=== PATIENT | female | born 1955 | race Caucasian/White ===

== ENCOUNTER 2020-02-26 19:22 | Inpatient (IN) | payer MEDICARE ==
[2020-02-26] MEDS ORDERED: SODIUM CHLORIDE 0.9% 1,000 ML IV STA (20:16)
--- NOTE | 2020-02-26 20:16 | ED ---
Recheck HPI - General Chief Complaint: Recheck/Abnormal Lab/Rx Stated Complaint: Chest Pains Time Seen by Provider: 02/26/20 19:50 Source: patient, RN notes reviewed, old records reviewed Mode of arrival: ambulatory Limitations: no limitations - History of Present Illness Initial Comments: This is a 64-year-old female DF for evaluation patient with us today for evaluation severely elevated blood pressure patient has been seen after surgery as well as multiple other doctors for evaluation of possible blood pressure control differences in blood pressure between both upper extremities as well as abnormal outpatient ultrasound. Patient has no chest pain headache or shortness breath currently MD Complaint: abnormal lab (abnormal BP) -: week(s) Returns Today for: persistent/worsening pain related to initial visit Symptoms Since Prior Visit: no new symptoms Associated Symptoms: none Treatments Prior to Arrival: other - Related Data Home Medications Medication Instructions Recorded Confirmed Aspirin EC [Ecotrin Low Dose] 81 mg PO DAILY 02/26/20 02/26/20 Atenolol [Tenormin] 50 mg PO BID 02/26/20 02/26/20 Enalapril Maleate [Vasotec] 15 mg PO BID 02/26/20 02/26/20 Rosuvastatin Calcium 10 mg PO HS@199902/26/20 02/26/20 Venlafaxine HCl [Effexor] 50 mg PO BID 02/26/20 02/26/20 Allergies Allergy/AdvReac Type Severity Reaction Status Date / Time losartan [From Cozaar] Allergy Itching Verified 02/26/20 19:34 Penicillins Allergy Swelling Verified 02/26/20 19:34 Review of Systems ROS Statement: Those systems with pertinent positive or pertinent negative responses have been documented in the HPI. ROS Other: All systems not noted in ROS Statement are negative. Past Medical History Past Medical History: Hypertension History of Any Multi-Drug Resistant Organisms: None Reported Past Surgical History: Tonsillectomy Additional Past Surgical History / Comment(s): abdominal laparotomy, fibroid tumor from uterus, fibroid from L breast Past Psychological History: Anxiety Smoking Status: Current every day smoker Past Alcohol Use History: Occasional Past Drug Use History: None Reported General Exam Limitations: no limitations General appearance: alert, in no apparent distress Head exam: Present: atraumatic, normocephalic, normal inspection Eye exam: Present: normal appearance, PERRL, EOMI. Absent: scleral icterus, conjunctival injection, periorbital swelling ENT exam: Present: normal exam, mucous membranes moist Neck exam: Present: normal inspection. Absent: tenderness, meningismus, lymphadenopathy Respiratory exam: Present: normal lung sounds bilaterally. Absent: respiratory distress, wheezes, rales, rhonchi, stridor Cardiovascular Exam: Present: regular rate, normal rhythm, normal heart sounds. Absent: systolic murmur, diastolic murmur, rubs, gallop, clicks GI/Abdominal exam: Present: soft, normal bowel sounds. Absent: distended, tenderness, guarding, rebound, rigid Extremities exam: Present: normal inspection, full ROM, normal capillary refill. Absent: tenderness, pedal edema, joint swelling, calf tenderness Back exam: Present: normal inspection Neurological exam: Present: alert, oriented X3, CN II-XII intact Psychiatric exam: Present: normal affect, normal mood Skin exam: Present: warm, dry, intact, normal color. Absent: rash Course Vital Signs 02/26/20 02/26/20 02/26/20 19:27 19:59 21:15 Temperature 97.8 F Pulse Rate 66 57 L Respiratory 16 18 Rate Blood Pressure 260/107 237/86 Blood Pressure [Left Arm] Blood Pressure [Right Arm] O2 Sat by Pulse 99 98 Oximetry 02/26/20 02/26/20 02/27/20 22:53 23:49 00:20 Temperature 97.8 F Pulse Rate 64 Respiratory 18 Rate Blood Pressure 225/82 222/83 Blood Pressure [Left Arm] Blood Pressure 130/78 [Right Arm] O2 Sat by Pulse 98 Oximetry 02/27/20 02/27/20 02/27/20 00:30 00:45 00:58 Temperature Pulse Rate Respiratory 14 Rate Blood Pressure Blood Pressure 200/78 210/75 196/77 [Left Arm] Blood Pressure 137/75 122/70 [Right Arm] O2 Sat by Pulse 99 Oximetry 02/27/20 01:25 Temperature 97.7 F Pulse Rate 53 L Respiratory 16 Rate Blood Pressure Blood Pressure [Left Arm] Blood Pressure [Right Arm] O2 Sat by Pulse Oximetry - Reevaluation(s) Reevaluation #1: Medical records reviewed Patient discussed at length, results, questions answered Spoke with vascular surgery on-call will see patient in consult admitted for blood pressure control Medical Decision Making - Medical Decision Making 64 female DF for severe elevated blood pressure also recent abnormalities found in different imaging will be modalities. Patient be admitted for strict blood pressure control - Lab Data Result diagrams: 02/28/20 05:16 02/28/20 05:16 Lab Results 02/26/20 02/26/20 02/26/20 Range/Units 20:47 20:47 20:47 WBC 9.7 (3.8-10.6) k/uL RBC 4.63 (3.80-5.40) m/uL Hgb 14.1 (11.4-16.0) gm/dL Hct 43.3 (34.0-46.0) % MCV 93.4 D (80.0-100.0) fL MCH 30.4 (25.0-35.0) pg MCHC 32.6 (31.0-37.0) g/dL RDW 12.6 (11.5-15.5) % Plt Count (150-450) k/uL Neutrophils % 55 % Lymphocytes % 35 % Monocytes % 6 % Eosinophils % 2 % Basophils % 1 % Neutrophils # 5.3 (1.3-7.7) k/uL Lymphocytes # 3.4 (1.0-4.8) k/uL Monocytes # 0.5 (0-1.0) k/uL Eosinophils # 0.2 (0-0.7) k/uL Basophils # 0.1 (0-0.2) k/uL PT 9.4 (9.0-12.0) sec INR 0.9 (<1.2) APTT 20.4 L (22.0-30.0) sec Sodium 134 L (137-145) mmol/L Potassium 4.4 (3.5-5.1) mmol/L Chloride 103 (98-107) mmol/L Carbon Dioxide 22 (22-30) mmol/L Anion Gap 9 mmol/L BUN 18 H (7-17) mg/dL Creatinine 0.66 (0.52-1.04) mg/dL Est GFR (CKD-EPI)AfAm >90 (>60 ml/min/1.73 sqM) Est GFR (CKD-EPI)NonAf >90 (>60 ml/min/1.73 sqM) Glucose 97 (74-99) mg/dL Calcium 9.4 (8.4-10.2) mg/dL Phosphorus 4.3 (2.5-4.5) mg/dL Magnesium 2.1 (1.6-2.3) mg/dL Total Bilirubin 0.5 (0.2-1.3) mg/dL AST 26 (14-36) U/L ALT 14 (4-34) U/L Alkaline Phosphatase 69 (38-126) U/L Troponin I (0.000-0.034) ng/mL NT-Pro-B Natriuret Pep pg/mL Total Protein 6.7 (6.3-8.2) g/dL Albumin 4.2 (3.5-5.0) g/dL Urine Color Urine Appearance (Clear) Urine pH (5.0-8.0) Ur Specific [place] (1.001-1.035) Urine Protein (Negative) Urine Glucose (UA) (Negative) Urine Ketones (Negative) Urine Blood (Negative) Urine Nitrite (Negative) Urine Bilirubin (Negative) Urine Urobilinogen (<2.0) mg/dL Ur Leukocyte Esterase (Negative) 02/26/20 02/26/20 02/26/20 Range/Units 20:47 20:47 21:47 WBC (3.8-10.6) k/uL RBC (3.80-5.40) m/uL Hgb (11.4-16.0) gm/dL Hct (34.0-46.0) % MCV (80.0-100.0) fL MCH (25.0-35.0) pg MCHC (31.0-37.0) g/dL RDW (11.5-15.5) % Plt Count (150-450) k/uL Neutrophils % % Lymphocytes % % Monocytes % % Eosinophils % % Basophils % % Neutrophils # (1.3-7.7) k/uL Lymphocytes # (1.0-4.8) k/uL Monocytes # (0-1.0) k/uL Eosinophils # (0-0.7) k/uL Basophils # (0-0.2) k/uL PT (9.0-12.0) sec INR (<1.2) APTT (22.0-30.0) sec Sodium (137-145) mmol/L Potassium (3.5-5.1) mmol/L Chloride (98-107) mmol/L Carbon Dioxide (22-30) mmol/L Anion Gap mmol/L BUN (7-17) mg/dL Creatinine (0.52-1.04) mg/dL Est GFR (CKD-EPI)AfAm (>60 ml/min/1.73 sqM) Est GFR (CKD-EPI)NonAf (>60 ml/min/1.73 sqM) Glucose (74-99) mg/dL Calcium (8.4-10.2) mg/dL Phosphorus (2.5-4.5) mg/dL Magnesium (1.6-2.3) mg/dL Total Bilirubin (0.2-1.3) mg/dL AST (14-36) U/L ALT (4-34) U/L Alkaline Phosphatase (38-126) U/L Troponin I 0.019 (0.000-0.034) ng/mL NT-Pro-B Natriuret Pep 1210 pg/mL Total Protein (6.3-8.2) g/dL Albumin (3.5-5.0) g/dL Urine Color Colorless Urine Appearance Clear (Clear) Urine pH 6.0 (5.0-8.0) Ur Specific [place] 1.004 (1.001-1.035) Urine Protein Negative (Negative) Urine Glucose (UA) Negative (Negative) Urine Ketones Negative (Negative) Urine Blood Negative (Negative) Urine Nitrite Negative (Negative) Urine Bilirubin Negative (Negative) Urine Urobilinogen <2.0 (<2.0) mg/dL Ur Leukocyte Esterase Negative (Negative) - EKG Data -: EKG Interpreted by Me (EKG shows sinus rhythm of 63 MN 142 QRS 92 QTC 4:30) - Radiology Data Radiology results: report reviewed (CTA of chest had neck show some stenosis of carotid arteries stenosis in the umbilical abdominal aorta), image reviewed Critical Care Time Critical Care Time: Yes Total Critical Care Time: 31 Disposition Clinical Impression: Hypertensive emergency, Hypertension Disposition: ADMITTED IP TO THIS HOSP Condition: Fair Is patient prescribed a controlled substance at d/c from ED?: No
[2020-02-26 21:18] LABS: ALT 14 U/L (4-34); AST 26 U/L (14-36); African American GFR (CKD) >90 (>60 ml/min/1.73 sqM); Albumin 4.2 g/dL (3.5-5.0); Alkaline Phosphatase 69 U/L (38-126); Anion Gap 9 mmol/L; Blood Urea Nitrogen 18 mg/dL (7-17); Calcium 9.4 mg/dL (8.4-10.2); Carbon Dioxide 22 mmol/L (22-30); Chloride 103 mmol/L (98-107); Glucose 97 mg/dL (74-99); Magnesium 2.1 mg/dL (1.6-2.3); Non-African American GFR(CKD) >90 (>60 ml/min/1.73 sqM); Phosphorus 4.3 mg/dL (2.5-4.5); Potassium 4.4 mmol/L (3.5-5.1); Sodium 134 mmol/L (137-145); Total Bilirubin 0.5 mg/dL (0.2-1.3); Total Protein 6.7 g/dL (6.3-8.2)
[2020-02-26 21:31] LABS: HCT 43.3 % (34.0-46.0); HGB 14.1 gm/dL (11.4-16.0); Lymphocytes % (A) 35 %; MCH 30.4 pg (25.0-35.0); MCHC 32.6 g/dL (31.0-37.0); Neutrophils % (A) 55 %; RBC 4.63 m/uL (3.80-5.40); RDW 12.6 % (11.5-15.5); WBC 9.7 k/uL (3.8-10.6)
[2020-02-26 21:32] LABS: Basophils # (A) 0.1 k/uL (0-0.2); Basophils % (A) 1 %; Eosinophils # (A) 0.2 k/uL (0-0.7); Eosinophils % (A) 2 %; Lymphocytes # (A) 3.4 k/uL (1.0-4.8); Monocytes # (A) 0.5 k/uL (0-1.0); Monocytes % (A) 6 %; Neutrophils # (A) 5.3 k/uL (1.3-7.7)
[2020-02-26 21:34] LABS: MCV 93.4 fL (80.0-100.0)
[2020-02-26 22:01] LABS: INR 0.9 (<1.2); Partial Thromboplastin Time 20.4 sec (22.0-30.0); Prothrombin Time 9.4 sec (9.0-12.0)
[2020-02-26 22:06] LABS: Appearance,Urine Clear (Clear); Bilirubin,Urine Negative (Negative); Blood,Urine Negative (Negative); Color,Urine Colorless; Glucose,Urine (UA) Negative (Negative); Ketones,Urine Negative (Negative); Leukocyte Esterase,Urine Negative (Negative); Nitrite,Urine Negative (Negative); Protein,Urine Negative (Negative); Specific Gravity,Urine 1.004 (1.001-1.035); Urobilinogen,Urine <2.0 mg/dL (<2.0)
--- NOTE | 2020-02-26 22:39 | CT ---
EXAMINATION TYPE: CT angio chest DATE OF EXAM: 02/26/2020 COMPARISON: None HISTORY: Hypertension CT DLP: 496.8 mGycm Automated exposure control for dose reduction was used. CONTRAST: Performed with IV Contrast, patient injected with 100 mL of Isovue 370. There are 3-D post processed images. There is some diffuse pulmonary emphysema in the mid and upper lung alvarado. There is no pulmonary con solidation. There is no suspicious pulmonary mass. Heart size is fairly normal. There is no pericardi al effusion. There is no pleural effusion. There is thrombus in the abdominal aorta with luminal narr owing. Thoracic aorta is atheromatous. There is no thoracic aortic aneurysm. There are no filling defects in the pulmonary arteries. There are no hilar masses. There is no mediastinal adenopathy. There is some spurring in the thoracic spine. I see no bony destructive process. The ribs appear intact. IMPRESSION: No evidence of pulmonary embolism. Pulmonary emphysema. There is some thrombus in the abdominal aorta and luminal narrowing and probably some degree of abdom inal aortic stenosis.
--- NOTE | 2020-02-26 22:53 | CT ---
EXAMINATION TYPE: CT angio head neck DATE OF EXAM: 02/26/2020 COMPARISON: None HISTORY: Hypertension CT DLP: 1447.8 mGycm Automated exposure control for dose reduction was used. CONTRAST: Performed with IV Contrast, patient injected with 100 mL of Isovue 370. Images were obtained from the aortic arch to the vertex of the brain with IV contrast. There are 3-D post processed images. Thoracic aorta is atheromatous. There is normal branching pattern of the great vessels on the aortic arch. There is bilateral arterial flow in the subclavian arteries. There is ar terial flow in the common internal and external carotid arteries bilaterally. There is arterial flow in both vertebral arteries which are fairly symmetric. There is plaque formation at the carotid artery bifurcations and estimated 80% stenosis of the origi n of the left internal carotid artery. There is estimated less than 15% stenosis origin of the right internal carotid artery. There is bilateral arterial flow in the external carotid arteries. I see no evidence of carotid or vertebral artery aneurysm or dissection. There is arterial flow in the vertebr obasilar artery system. There is arterial flow in both anterior cerebral arteries. There is arterial flow in the middle and posterior cerebral arteries. There is diminutive proximal left anterior cerebr al artery. There is diminutive proximal right middle cerebral artery. There is normal contrast opacification of the venous sinuses. There is no mass effect. There is no sign of intracranial aneurysm or neovascularity. IMPRESSION: There is approximate 80% stenosis of the proximal left internal carotid artery. There is approximate 15% stenosis proximal right internal carotid artery. Small proximal left anterior cerebral artery and proximal right middle cerebral artery could Relate t o atherosclerotic narrowing.
[2020-02-26] MEDS: CLEVIDIPINE BUTYRATE 25 MG in EMPTY BAG 1 BAG IV SCH (23:19)
--- NOTE | 2020-02-26 23:30 | CT ---
EXAMINATION TYPE: CT brain wo con DATE OF EXAM: 02/26/2020 COMPARISON: None HISTORY: Hypertension CT DLP: 1085 mGycm Automated exposure control for dose reduction was used. Ventricles have normal size. There is no mass effect nor midline shift. There is no sign of intracran ial hemorrhage. Calvarium is intact. There is no evidence of cerebral edema. Sella turcica is normal. Temporal bones appear normal. IMPRESSION: Negative unenhanced head CT scan.
[2020-02-27 01:43] LABS: Glucose,Whole Blood 101 mg/dL (75-99)
[2020-02-27 03:55] LABS: Cholesterol 182 mg/dL (<200); HDL Cholesterol 45 mg/dL (40-60); LDL Cholesterol,Calculated 106 mg/dL (0-99); Triglycerides 153 mg/dL (<150)
[2020-02-27] MEDS ORDERED: atenoloL 50 MG TAB PO SCH (09:00)
[2020-02-27] MEDS: ASPIRIN 81 MG PO SCH (09:55)
[2020-02-27] MEDS: atenoloL 25 MG TAB PO SCH ×2 (09:55→20:42)
[2020-02-27] MEDS: hydroCHLOROthiazide 25 MG TAB PO SCH (09:56)
[2020-02-27] MEDS: lisinopriL 20 MG TAB PO SCH ×2 (09:56→20:43)
[2020-02-27] MEDS: VENLAFAXINE HCL 50 MG TAB PO SCH ×2 (09:56→20:43)
[2020-02-27] MEDS: ATORVASTATIN 80 MG TAB PO SCH (09:56)
--- NOTE | 2020-02-27 11:05 | CONS ---
CONSULTATION Mrs. Bustamante is a 64-year-old female with known history of hypertension, hyperlipidemia, history of smoking as well as a known history of vascular disease, who presented with elevated blood pressure. Recently, she was noted to have discrepancy in the blood pressure between the left arm and the right arm and her medical regimen was adjusted, but she continued to have worsening blood pressure and had some chest discomfort, pressure-like. In view of that, came into the emergency room and subsequently admitted. Her blood pressure on the left arm was above 200. The patient is usually active physically, gardening on regular basis, has no dyspnea on exertion. No chest discomfort. She denies any recent palpitation, although she has occasional palpitation at time. Occasional dizziness but no syncope. She has no PND, orthopnea, or peripheral edema. She has been followed by Dr. Short regarding asymptomatic carotid obstructive disease. The patient coronary risk factors are remarkable for hypertension, hyperlipidemia and smoking. MEDICATION: At home include aspirin once a day, rosuvastatin 10 mg daily, enalapril 15 mg twice a day, Tenormin 15 mg twice a day, and Effexor. REVIEW OF SYSTEMS: RESPIRATORY SYSTEM: She has no recent wheezing. No cough. No obstructive lung disease. GI SYSTEM: No recent GI bleeding. No peptic ulcer disease. SYSTEM: No dysuria or hematuria. NERVOUS SYSTEM: No stroke or seizure. PHYSICAL EXAMINATION: She is a 64-year-old female, alert, oriented, in no apparent distress. Blood pressure on the left arm running in the 170s, on the right in the 120s to 130s. Heart rate in the 50s. HEAD: Normocephalic. EYES: Sclerae nonicteric. NECK: Good upstroke with with bilateral bruit. Right left subclavian bruit noted. LUNGS: Clear to auscultation. HEART: Regular rate and rhythm, S1, S2. No S3 with systolic ejection murmur heard at the base, ejection type 2/6, no diastolic murmur, no rub. ABDOMEN: Soft, nontender, positive bowel sounds, no organomegaly. EXTREMITIES: No edema, intact distal pulses. Pulse on the left radial appears to be stronger. LAB DATA: Cholesterol 182, LDL 106. Troponin 0.019, less than 0.012. BUN and creatinine 18 and 0.66. Hemoglobin of 14.1. EKG revealed sinus mechanism, normal axis and intervals, left ventricular hypertrophy. Brain CT unremarkable. CT angiogram of the brain revealed an 80% stenosis of the left internal carotid artery and 15% stenosis of the right internal carotid artery. No mention of the subclavian was noted. Chest CT revealed no evidence of dissection or embolism, but there is thrombus in the abdominal aorta and luminal narrowing. IMPRESSION: 1. Hypertension with differential blood pressure between the left and right arm suggestive of subclavian stenosis with no clear symptoms. 2. History of carotid disease, asymptomatic. 3. Hypertension by history. 4. Hyperlipidemia. 5. Chronic tobacco use. 6. Atherosclerotic changes. RECOMMENDATION: Patient appears to be vasculopathic with diffuse obstructive disease. At this time, I will repeat her echocardiogram with Doppler. I will add hydrochlorothiazide to her regimen. I will decrease the dose of her beta mildred. Will obtain an ultrasound of her subclavian. Will maximize her blood pressure control. The patient would require a myocardial perfusion imaging to rule out any obstructive coronary disease, although her symptoms of chest discomfort at this time do not reflect an acute coronary artery syndrome. Depending on her progress, further recommendation will be made. I have discussed with her the importance of smoking cessation. Thank you for this consult. Will follow with you. MMODL / IJN: [id number] /
[2020-02-27] MEDS: CLEVIDIPINE BUTYRATE 25 MG in EMPTY BAG 1 BAG IV SCH ×5 (11:19→23:03)
[2020-02-27] MEDS: SODIUM CHLORIDE 0.9% 1,000 ML IV SCH ×3 (11:32→17:16)
--- NOTE | 2020-02-27 12:01 | ECHOF ---
Referral Reason:htn MEASUREMENTS -------- HEIGHT: 162.6 cm WEIGHT: 61.2 kg BP: IVSd: 1.2 cm (0.6 - 1.1) LVIDd: 4.4 cm (3.9 - 5.3) LVPWd: 1.0 cm (0.6 - 1.1) EDV(Teich): 87 ml IVSs: 1.5 cm LVIDs: 2.6 cm LVPWs: 1.6 cm %IVS Thck: 22 % ESV(Teich): 25 ml EF(Teich): 71 % %FS: 40 % SV(Teich): 62 ml LA Diam: 3.6 cm (2.7 - 3.8) LALs A4C: 4.7 cm LAAs A4C: 14.0 cm LAESV A-L A4C: 36 ml LAESV MOD A4C: 34 ml LALs A2C: 4.7 cm LAAs A2C: 16.0 cm LAESV A-L A2C: 46 ml LAESV MOD A2C: 43 ml LAESV(A-L): 41 ml LAESV Index (A-L): 24.57 ml/m Ao Diam: 2.5 cm (2.0 - 3.7) AV Cusp: 1.4 cm (1.5 - 2.6) MV EXCURSION: 13.254 mm (> 18.000) MV EF SLOPE: 61 mm/s (70 - 150) EPSS: 0.3 cm MV E [place]: 0.70 m/s MV DecT: 347 ms MV Dec [place]: 2.0 m/s MV A [place]: 0.94 m/s MV E/A Ratio: 0.75 MV PHT: 100 ms TR Vmax: 1.83 m/s TR maxP.40 mmHg RAP: 5.00 mmHg RVSP: 18.40 mmHg FINDINGS -------- This was a technically good study. The left ventricular size is normal. There is mild concentric left ventricular hypertrophy. Overa ll left ventricular systolic function is normal with, an EF between 55 - 60 %. The right ventricle is normal in size. The left atrial size is normal. Normal LA size by volume 22+/-6 ml/m2. The right atrial size is normal. The aortic valve is trileaflet, and appears structurally normal. No aortic stenosis or regurgitation. Mild mitral regurgitation is present. Mild tricuspid regurgitation present. Right ventricular systolic pressure is normal at < 35 mmHg. Trace/mild (physiologic) pulmonic regurgitation. The aortic root size is normal. There is no pericardial effusion. CONCLUSIONS -------- 1. The left ventricular size is normal. 2. There is mild concentric left ventricular hypertrophy. 3. Overall left ventricular systolic function is normal with, an EF between 55 - 60 %. 4. The right ventricle is normal in size. 5. The left atrial size is normal. 6. Normal LA size by volume 22+/-6 ml/m2. 7. The right atrial size is normal. 8. Mild mitral regurgitation is present. 9. Mild tricuspid regurgitation present. 10. Trace/mild (physiologic) pulmonic regurgitation. FAMILY DAY CARER: Roseline Perez RDCS
--- NOTE | 2020-02-27 13:33 | P.GSCN ---
History of Present Illness Consult date: 02/27/20 Reason for Consult: Carotid stenosis, right subclavian stenosis History of present illness: This is a pleasant 64-year-old female who is known to Dr. Short, who actually was seen in the office this past Sunday a reevaluation of carotid stenosis and asymptomatic right subclavian stenosis. The patient was known to have elevated blood pressure at the time of the appointment. She had followed up with her PCP Jaida Barth who had done some medication adjustments. The patient was doing home blood pressure checks and noticed her blood pressure has still been elevated in the 200s over 100s. The patient tried to sleep however felt that she had pounding in her head and chest, he came into the emergency department yesterday evening and presented with blood pressures in the 200s/100s-80s. The patient was admitted into the ICU for hypertensive crisis and blood pressure management. Her past medical history includes hypertension and current every day smoker. He CT angiogram of the head and neck showed approximately 80% stenosis of the proximal left internal carotid artery. There is approximate 50% stenosis of proximal right internal carotid artery. The CT angiogram of the chest shows no evidence of pulmonary embolism. There is p ulmonary emphysema. There is some thrombus in the abdominal aorta and luminal narrowing and probably some degree of abdominal aortic stenosis. A CT of the brain without contrast was completed and was negative. The patient also underwent an echocardiogram which showed mild concentric left ventricular hypertrophy, EF between 55 and 60%, and mild mitral regurgitation. The patient denies any pain to the right upper extremity or shoulder, as well as any loss of mobility to the right upper extremity. She denies any shortness breath or chest pain at this time. She denies any focal deficits. Review of Systems A 14 point review of systems was completed and all pertinent positives and negatives as stated in the HPI. Past Medical History Past Medical History: Hypertension History of Any Multi-Drug Resistant Organisms: None Reported Past Surgical History: Tonsillectomy Additional Past Surgical History / Comment(s): abdominal laparotomy, fibroid tu mor from uterus, fibroid from L breast Past Anesthesia/Blood Transfusion Reactions: Postoperative Nausea & Vomiting (PONV) Past Psychological History: Anxiety Smoking Status: Former smoker Past Alcohol Use History: Occasional Past Drug Use History: None Reported Medications and Allergies Home Medications Medication Instructions Recorded Confirmed Type Aspirin EC [Ecotrin Low Dose] 81 mg PO DAILY 02/26/20 02/26/20 History Atenolol [Tenormin] 50 mg PO BID 02/26/20 02/26/20 History Enalapril Maleate [Vasotec] 15 mg PO BID 02/26/20 02/26/20 History Rosuvastatin Calcium 10 mg PO HS@2000 02/26/20 02/26/20 History Venlafaxine HCl [Effexor] 50 mg PO BID 02/26/20 02/26/20 History Allergies Allergy/AdvReac Type Severity Reaction Status Date / Time losartan [From Cozaar] Allergy Itching Verified 02/26/20 19:34 Penicillins Allergy Swelling Verified 02/26/20 19:34 Surgical - Exam Vital Signs Temp Pulse Resp Pulse Ox 97.8 F 66 16 99 02/26/20 19:27 02/26/20 19:27 02/26/20 19:27 02/26/20 19:27 General appearance: The patient is alert, oriented, in no acute distress. HET: Head is normocephalic and atraumatic. Neck: Supple without lymphadenopathy. Trachea midline. No audible bruit on the right side neck, left carotid audible bruit. Heart: S1 S2. Regular rate and rhythm. Lungs: No crackles or wheezes are heard. Abdomen: Soft, nontender, nondistended with bowel sounds. Extremities: Normal skin color and turgor. No cyanosis, rash, ulceration, clubbing, or edema. Radial pulses 2+ B/L. Full range of motion of bilateral upper extremities without any pain. Neurological: No focal deficits. Strength and sensation are grossly intact. Results CT angiogram of head and neck reviewed per Dr. Short CT angiogram of chest reviewed per Dr. Short CT brain without contrast reviewed Echocardiogram reviewed and dictated in HPI - Labs 02/26/20 20:47 02/26/20 20:47 Abnormal Lab Results - Last 24 Hours (Table) 02/26/20 02/26/20 02/27/20 Range/Units 20:47 20:47 01:42 APTT 20.4 L (22.0-30.0) sec Sodium 134 L (137-145) mmol/L BUN 18 H (7-17) mg/dL POC Glucose (mg/dL) 101 H (75-99) mg/dL Triglycerides (<150) mg/dL LDL Cholesterol, Calc (0-99) mg/dL 02/27/20 Range/Units 02:47 APTT (22.0-30.0) sec Sodium (137-145) mmol/L BUN (7-17) mg/dL POC Glucose (mg/dL) (75-99) mg/dL Triglycerides 153 H (<150) mg/dL LDL Cholesterol, Calc 106 H (0-99) mg/dL Diabetes panel 02/26/20 02/27/20 Range/Units 20:47 02:47 Sodium 134 L (137-145) mmol/L Potassium 4.4 (3.5-5.1) mmol/L Chloride 103 (98-107) mmol/L Carbon Dioxide 22 (22-30) mmol/L BUN 18 H (7-17) mg/dL Creatinine 0.66 (0.52-1.04) mg/dL Glucose 97 (74-99) mg/dL Calcium 9.4 (8.4-10.2) mg/dL AST 26 (14-36) U/L ALT 14 (4-34) U/L Alkaline Phosphatase 69 (38-126) U/L Total Protein 6.7 (6.3-8.2) g/dL Albumin 4.2 (3.5-5.0) g/dL Triglycerides 153 H (<150) mg/dL HDL Cholesterol 45 (40-60) mg/dL Calcium panel 02/26/20 Range/Units 20:47 Calcium 9.4 (8.4-10.2) mg/dL Phosphorus 4.3 (2.5-4.5) mg/dL Albumin 4.2 (3.5-5.0) g/dL Pituitary panel 02/26/20 Range/Units 20:47 Sodium 134 L (137-145) mmol/L Potassium 4.4 (3.5-5.1) mmol/L Chloride 103 (98-107) mmol/L Carbon Dioxide 22 (22-30) mmol/L BUN 18 H (7-17) mg/dL Creatinine 0.66 (0.52-1.04) mg/dL Glucose 97 (74-99) mg/dL Calcium 9.4 (8.4-10.2) mg/dL Adrenal panel 02/26/20 Range/Units 20:47 Sodium 134 L (137-145) mmol/L Potassium 4.4 (3.5-5.1) mmol/L Chloride 103 (98-107) mmol/L Carbon Dioxide 22 (22-30) mmol/L BUN 18 H (7-17) mg/dL Creatinine 0.66 (0.52-1.04) mg/dL Glucose 97 (74-99) mg/dL Calcium 9.4 (8.4-10.2) mg/dL Total Bilirubin 0.5 (0.2-1.3) mg/dL AST 26 (14-36) U/L ALT 14 (4-34) U/L Alkaline Phosphatase 69 (38-126) U/L Total Protein 6.7 (6.3-8.2) g/dL Albumin 4.2 (3.5-5.0) g/dL Assessment and Plan Assessment: 1. Left internal carotid artery stenosis, approximately 80% 2. Right asymptomatic subclavian stenosis 3. Hypertensive emergency 4. Chronic Hypertension 6. Tobacco abuse Plan: Continue aspirin and statin. There is no need at this time for any anticoagulation. There are no indications for any emergent vascular surgical intervention at this time. Maintain optimal blood pressure control. Patient is cleared for discharge from a vascular surgery standpoint once otherwise medic ally stable. Patient will follow-up with Dr. Short in the office once discharged. Thank you for this consult and allowing us to take part in the plan of care of your patient during her hospital stay. The above dictated assessment and findings were discussed with Dr. Short. The impression and plan of care have been directed as dictated.
--- NOTE | 2020-02-27 15:19 | P.CNPUL ---
History of Present Illness Consult date: 02/27/20 Requesting physician: Abram Jackson Reason for consult: other (Hypertensive emergency.) Chief complaint: Elevated blood pressure. History of present illness: This is a 64-year-old female with history of hypertension, maintained normally on enalapril at 15 mg twice a day and Tenormin 50 mg twice a day. Patient presented to the ER yesterday, mostly complaining of blood pressure being elevated. Blood pressure in the left arm was over 200 systolic, patient had no significant complaints, no shortness of breath, no chest pain, no PND, no orthopnea, no headache, no blurred vision. She is known to have history of significant vascular disease, mostly carotid vascular disease and asymptomatic in nature. Considering her significantly elevated blood pressure in the ER, patient was placed on clevidipine drip, admitted to the ICU, and this consult was initiated. Patient was already seen by cardiology, and by vascular surgery, placed on oral meds, clevidipine is being tapered down to maintain a systolic blood pressure of 160. Patient has no active symptoms. Patient was noted to have discrepancy in blood pressure readings between right arm and left arm, patient may have subclavian stenosis without any symptoms. Review of Systems Constitutional: Negative HEENT: Negative Cardiac: Negative Pulmonary: Negative GI: Negative Genitourinary: Negative Musculoskeletal: Negative Skin: Negative Neurologic: Negative Endocrine: Negative Hematologic: Negative Psychiatric: Negative Lymphatics: Negative Past Medical History Past Medical History: Hypertension History of Any Multi-Drug Resistant Organisms: None Reported Past Surgical History: Tonsillectomy Additional Past Surgical History / Comment(s): abdominal laparotomy, fibroid tumor from uterus, fibroid from L breast Past Anesthesia/Blood Transfusion Reactions: Postoperative Nausea & Vomiting (PONV) Past Psychological History: Anxiety Smoking Status: Former smoker Past Alcohol Use History: Occasional Past Drug Use History: None Reported Medications and Allergies Home Medications Medication Instructions Recorded Confirmed Type Aspirin EC [Ecotrin Low Dose] 81 mg PO DAILY 02/26/20 02/26/20 History Atenolol [Tenormin] 50 mg PO BID 02/26/20 02/26/20 History Enalapril Maleate [Vasotec] 15 mg PO BID 02/26/20 02/26/20 History Rosuvastatin Calcium 10 mg PO HS@199902/26/20 02/26/20 History Venlafaxine HCl [Effexor] 50 mg PO BID 02/26/20 02/26/20 History Allergies Allergy/AdvReac Type Severity Reaction Status Date / Time losartan [From Justin] Allergy Itching Verified 02/26/20 19:34 Penicillins Allergy Swelling Verified 02/26/20 19:34 Physical Exam Vitals: Vital Signs Temp Pulse Resp BP BP BP Pulse Ox 02/27/20 14:45 58 L 14 147/60 94 L 02/27/20 14:30 61 19 161/60 95 02/27/20 14:15 60 20 151/61 94 L 02/27/20 14:00 57 L 11 L 162/63 02/27/20 13:45 58 L 16 152/61 02/27/20 13:30 58 L 145/58 94 L 02/27/20 13:15 57 L 19 149/57 94 L 02/27/20 13:00 59 L 12 149/61 96 02/27/20 12:45 59 L 14 165/67 94 L 02/27/20 12:30 62 20 92 L 02/27/20 12:15 61 15 164/68 91 L 02/27/20 12:00 61 14 153/59 91 L 02/27/20 11:45 57 L 18 171/66 02/27/20 11:30 56 L 175/66 94 L 02/27/20 11:15 60 23 96 02/27/20 11:00 66 20 168/64 97 02/27/20 10:45 61 20 156/63 97 02/27/20 10:30 58 L 12 165/63 02/27/20 10:15 58 L 17 172/67 02/27/20 10:10 61 19 172/67 02/27/20 10:00 63 14 02/27/20 09:50 66 20 167/64 02/27/20 09:40 60 26 H 187/70 02/27/20 09:30 56 L 15 02/27/20 09:20 59 L 20 121/87 02/27/20 09:10 64 102/77 95 02/27/20 09:00 63 102/77 95 02/27/20 08:50 63 13 102/77 97 02/27/20 08:40 58 L 14 102/67 97 02/27/20 08:30 60 20 123/71 02/27/20 08:20 63 97 02/27/20 08:10 56 L 18 99/64 93 L 02/27/20 08:00 96.7 F L 57 L 18 113/70 95 02/27/20 05:00 50 L 20 176/69 91 L 02/27/20 04:50 56 L 18 176/69 93 L 02/27/20 04:40 55 L 19 176/67 92 L 02/27/20 04:30 53 L 21 176/73 91 L 02/27/20 04:20 54 L 18 176/73 91 L 02/27/20 04:10 57 L 14 95 02/27/20 04:00 58 L 10 L 180/67 02/27/20 03:50 57 L 18 180/67 91 L 02/27/20 03:40 56 L 20 183/67 92 L 02/27/20 03:30 55 L 20 110/58 92 L 02/27/20 03:20 63 27 H 110/58 94 L 02/27/20 03:10 57 L 20 131/79 95 02/27/20 03:00 55 L 12 199/66 94 L 02/27/20 02:50 51 L 19 199/66 91 L 02/27/20 02:40 51 L 11 L 185/70 94 L 02/27/20 02:30 56 L 16 196/77 95 02/27/20 02:20 59 L 27 H 96 02/27/20 02:10 53 L 12 92/66 95 02/27/20 02:00 58 L 16 106/61 93 L 02/27/20 01:50 57 L 11 L 106/61 96 02/27/20 01:40 98.3 F 55 L 15 200/74 96 02/27/20 01:25 97.7 F 53 L 16 02/27/20 00:58 14 196/77 122/70 99 02/27/20 00:45 210/75 137/75 02/27/20 00:30 200/78 02/27/20 00:20 130/78 02/26/20 23:49 222/83 02/26/20 22:53 97.8 F 64 18 225/82 98 02/26/20 21:15 57 L 18 237/86 98 02/26/20 19:59 260/107 02/26/20 19:27 97.8 F 66 16 99 Intake and Output 02/27/20 02/27/20 02/27/20 06:59 14:59 22:59 Intake Total 500 721.801 Output Total 900 2200 Balance -400 -1478.199 Intake: IV 500 620 Sodium Chloride 0.9% 1, 500 620 000 ml @ 20 mls/hr IV . Q24H [facility] Rx#:[id number] Intake, IV Titration 101.801 Amount Clevidipine Butyrate 25 101.801 mg In Empty Bag 1 bag @ 1 MG/HR 2 mls/hr IV .Q24H [facility] Rx#:[id number] Output: Urine 900 2200 Other: # Voids 0 Weight 61.235 kg Physical Exam: Revealed a 64-year-old female, pleasant, in no distress. Head: Atraumatic, normocephalic. HEENT:[Neck is supple.] [No neck masses.] [No thyromegaly.] [No JVD.] Chest: [Clear throughout, no crackles, no rhonchi, no wheezes.] Cardiac Exam: [Normal S1 and S2, no S3 gallop, 2/6 systolic murmur at the left lower sternal border. Abdomen: [Soft, nontender, no megaly, no rebound, no guarding, normal bowel sounds.] Extremities: [No clubbing, no edema, no cyanosis.] Neurological Exam: [No focal neurologic deficit.] Alert oriented 3. Psychiatric: Normal mood, affect and normal mental status examination. Skin: No rashes. Results - Laboratory Findings CBC and BMP: 02/26/20 20:47 02/26/20 20:47 PT/INR, D-dimer PT 9.4 sec (9.0-12.0) 02/26/20 20:47 INR 0.9 (<1.2) 02/26/20 20:47 Abnormal lab findings: Abnormal Labs 02/26/20 02/26/20 08 20:47 20:47 01:42 APTT 20.4 L Sodium 134 L BUN 18 H POC Glucose (mg/dL) 101 H Triglycerides LDL Cholesterol, Calc 02/27/20 02:47 APTT Sodium BUN POC Glucose (mg/dL) Triglycerides 153 H LDL Cholesterol, Calc 106 H - Diagnostic Findings CT scan - chest: image reviewed (No evidence of pulmonary embolism however there is some thrombus in the abdominal aorta and luminal narrowing already addressed by vascular surgery.) Assessment and Plan Assessment: Impression: Hypertensive emergency. Patient is relatively asymptomatic, remains on clevidipine drip and being titrated accordingly. Patient will be switched to her oral medications and these will be adjusted accordingly. History of carotid artery disease, asymptomatic. Chronic tobacco use. Dyslipidemia. Recommendation: Continue present treatment plan, as per cardiology on the case. Continue titration of clevidipine. Oral blood pressure medications including beta blockers calcium channel blo ckers, and Raoul inhibitors. We'll continue to monitor in the ICU as long as she is on clevidipine drip. We'll continue to follow Time with Patient: Greater than 30
[2020-02-27] MEDS ORDERED: FAMOTIDINE 20 MG/2 ML VIAL IV SCH (21:00)
--- NOTE | 2020-02-27 21:46 | P.HPIM ---
History of Present Illness This is a pleasant 64 years old female with past medical history of hypertension via presents because of uncontrolled hypertension. She went to see her PCP Dr. Hargrove because she was feeling pounding headache to found to have discrepancy in her blood pressure measurement between the right and left sides, for example left-sided systolic BP is 200 while on the right side is in 120s as per patient. Dr. Hargrove referred the patient to Dr. Short who evaluated the patient and vascular disease was suspected however her blood pressure remained high when she went home with SBP was around 240-260 so she decided to come to the hospital. Also she had some chest pressure which is better now. Admission her blood pressure was 260/107. Currently blood pressure 121/87, heart rate 59, rest of vital signs stable showing unremarkable CBC, INR, BMP, liver enzymes. Troponins are negative 3, UA is negative. EKG showing normal sinus rhythm at [address]-T changes. Negative CT of the brain for acute. CTA of the brain showing 80% stenosis of the left internal carotid artery and 15% on the right internal carotid artery CTA of the chest showing no PE, pulmonary emphysema there is some thrombus in the abdominal aorta and luminal narrowing and probably some degree of abdominal aortic aneurysm In the emergency room she was started on normal saline at 100 mL per hour. 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 Patient was admitted to the ICU Review of Systems CONSTITUTIONAL: No fever, no malaise, no fatigue. HEENT: No recent visual problems or hearing problems. Denied any sore throat. CARDIOVASCULAR: No orthopnea, PND, no palpitations, no syncope. PULMONARY: No shortness of breath, no cough, no hemoptysis. GASTROINTESTINAL: No diarrhea, no nausea, no vomiting, no abdominal pain. Normoactive bowel sounds. NEUROLOGICAL: No headaches, no weakness, no numbness. HEMATOLOGICAL: Denies any bleeding or petechiae. GENITOURINARY: Denies any burning micturition, frequency, or urgency. MUSCULOSKELETAL/RHEUMATOLOGICAL: Denies any joint pain, swelling, or any muscle pain. ENDOCRINE: Denies any polyuria or polydipsia. Past Medical History Past Medical History: Hypertension History of Any Multi-Drug Resistant Organisms: None Reported Past Surgical History: Tonsillectomy Additional Past Surgical History / Comment(s): abdominal laparotomy, fibroid tumor from uterus, fibroid from L breast Past Anesthesia/Blood Transfusion Reactions: Postoperative Nausea & Vomiting (PONV) Past Psychological History: Anxiety Smoking Status: Former smoker Past Alcohol Use History: Occasional Past Drug Use History: None Reported Medications and Allergies Home Medications Medication Instructions Recorded Confirmed Type Aspirin EC [Ecotrin Low Dose] 81 mg PO DAILY 02/26/20 02/26/20 History Atenolol [Tenormin] 50 mg PO BID 02/26/20 02/26/20 History Enalapril Maleate [Vasotec] 15 mg PO BID 02/26/20 02/26/20 History Rosuvastatin Calcium 10 mg PO HS@199902/26/20 02/26/20 History Venlafaxine HCl [Effexor] 50 mg PO BID 02/26/20 02/26/20 History Allergies Allergy/AdvReac Type Severity Reaction Status Date / Time losartan [From Cozaar] Allergy Itching Verified 02/26/20 19:34 Penicillins Allergy Swelling Verified 02/26/20 19:34 Physical Exam Vitals: Vital Signs Temp Pulse Resp BP BP BP Pulse Ox 02/27/20 09:30 56 L 15 02/27/20 09:20 59 L 20 121/87 02/27/20 09:10 64 102/77 95 02/27/20 09:00 63 102/77 95 02/27/20 08:50 63 13 102/77 97 02/27/20 08:40 58 L 14 102/67 97 02/27/20 08:30 60 20 123/71 02/27/20 08:20 63 97 02/27/20 08:10 56 L 18 99/64 93 L 02/27/20 08:00 96.7 F L 57 L 18 113/70 95 02/27/20 05:00 50 L 20 176/69 91 L 02/27/20 04:50 56 L 18 176/69 93 L 02/27/20 04:40 55 L 19 176/67 92 L 02/27/20 04:30 53 L 21 176/73 91 L 02/27/20 04:20 54 L 18 176/73 91 L 02/27/20 04:10 57 L 14 95 02/27/20 04:00 58 L 10 L 180/67 02/27/20 03:50 57 L 18 180/67 91 L 02/27/20 03:40 56 L 20 183/67 92 L 02/27/20 03:30 55 L 20 110/58 92 L 02/27/20 03:20 63 27 H 110/58 94 L 02/27/20 03:10 57 L 20 131/79 95 02/27/20 03:00 55 L 12 199/66 94 L 02/27/20 02:50 51 L 19 199/66 91 L 02/27/20 02:40 51 L 11 L 185/70 94 L 02/27/20 02:30 56 L 16 196/77 95 02/27/20 02:20 59 L 27 H 96 02/27/20 02:10 53 L 12 92/66 95 02/27/20 02:00 58 L 16 106/61 93 L 02/27/20 01:50 57 L 11 L 106/61 96 02/27/20 01:40 98.3 F 55 L 15 200/74 96 02/27/20 01:25 97.7 F 53 L 16 02/27/20 00:58 14 196/77 122/70 99 02/27/20 00:45 210/75 137/75 02/27/20 00:30 200/78 02/27/20 00:20 130/78 02/26/20 23:49 222/83 02/26/20 22:53 97.8 F 64 18 225/82 98 02/26/20 21:15 57 L 18 237/86 98 02/26/20 19:59 260/107 02/26/20 19:27 97.8 F 66 16 99 Intake and Output 02/26/20 02/27/20 02/27/20 22:59 06:59 14:59 Intake Total 500 200 Output Total 900 0 Balance -400 200 Intake: IV 500 200 Sodium Chloride 0.9% 1, 500 200 000 ml @ 100 mls/hr IV . Q10H [facility] Rx#:[id number] Output: Urine 900 0 Other: # Voids 0 Weight 61.235 kg 61.235 kg GENERAL: The patient is alert and oriented x3, not in any acute distress. Well developed, well nourished. HEENT: Pupils are round and equally reacting to light. EOMI. No scleral icterus. No conjunctival pallor. Normocephalic, atraumatic. No pharyngeal erythema. No thyromegaly. CARDIOVASCULAR: S1 and S2 present. No murmurs, rubs, or gallops. PULMONARY: Chest is clear to auscultation, no wheezing or crackles. ABDOMEN: Soft, nontender, nondistended, normoactive bowel sounds. No palpable organomegaly. MUSCULOSKELETAL: No joint swelling or deformity. EXTREMITIES: No cyanosis, clubbing, or pedal edema. NEUROLOGICAL: Gross neurological examination did not reveal any focal deficits. SKIN: No rashes. No petechiae Results CBC & Chem 7: 02/26/20 20:47 02/26/20 20:47 Labs: Abnormal Lab Results - Last 24 Hours (Table) 02/26/20 02/26/20 02/27/20 Range/Units 20:47 20:47 01:42 APTT 20.4 L (22.0-30.0) sec Sodium 134 L (137-145) mmol/L BUN 18 H (7-17) mg/dL POC Glucose (mg/dL) 101 H (75-99) mg/dL Triglycerides (<150) mg/dL LDL Cholesterol, Calc (0-99) mg/dL 02/27/20 Range/Units 02:47 APTT (22.0-30.0) sec Sodium (137-145) mmol/L BUN (7-17) mg/dL POC Glucose (mg/dL) (75-99) mg/dL Triglycerides 153 H (<150) mg/dL LDL Cholesterol, Calc 106 H (0-99) mg/dL Thrombosis Risk Factor Assmnt - Choose All That Apply Any of the Below Risk Factors Present?: No Other Risk Factors: No Thrombosis Risk Factor Assessment Level: Very Low Risk Assessment and Plan Assessment: Hypertensive urgency Abdominal aortic narrowing with possible thrombosis Left internal carotid artery stenosis by 80% Emphysema, not an active issue Plan: This is a pleasant 64 years old female who presents with hypertensive urgency and aortic stenosis with possible thrombosis. Continue with blood pressure medication of beta mildred, hydrochlorothiazide and KAUSHIK inhibitor and monitor blood pressure closely Continue with aspirin. Follow-up recommendation by sales strategy manager, cardiovascular surgery service. Pulmonary/critical care team on the case as well Labs and medication were reviewed.. Continue same treatment. Continue with symptomatic treatment. Resume home medication. Monitor lytes and vitals. DVT and GI prophylaxis. Further recommendations of the clinical course of the patient DVT prophylaxis: Subcutaneous heparin GI Prophylaxis: Pepcid Prognosis is guarded
[2020-02-28] MEDS: CLEVIDIPINE BUTYRATE 25 MG in EMPTY BAG 1 BAG IV SCH (03:14)
[2020-02-28 05:31] LABS: Basophils # (A) 0.1 k/uL (0-0.2); Basophils % (A) 1 %; Eosinophils # (A) 0.3 k/uL (0-0.7); Eosinophils % (A) 2 %; HCT 45.9 % (34.0-46.0); HGB 15.1 gm/dL (11.4-16.0); Lymphocytes # (A) 2.9 k/uL (1.0-4.8); Lymphocytes % (A) 27 %; MCH 31.3 pg (25.0-35.0); MCHC 32.9 g/dL (31.0-37.0); MCV 95.4 fL (80.0-100.0); Mean Platelet Volume 7.3; Monocytes # (A) 0.7 k/uL (0-1.0); Monocytes % (A) 7 %; Neutrophils # (A) 6.8 k/uL (1.3-7.7); Neutrophils % (A) 62 %; Platelet Count 205 k/uL (150-450); RBC 4.81 m/uL (3.80-5.40); RDW 12.9 % (11.5-15.5)
[2020-02-28 05:53] LABS: African American GFR (CKD) >90 (>60 ml/min/1.73 sqM); Anion Gap 6 mmol/L; Blood Urea Nitrogen 17 mg/dL (7-17); Calcium 9.4 mg/dL (8.4-10.2); Carbon Dioxide 25 mmol/L (22-30); Chloride 105 mmol/L (98-107); Glucose 104 mg/dL (74-99); Non-African American GFR(CKD) 86 (>60 ml/min/1.73 sqM); Potassium 4.2 mmol/L (3.5-5.1); Sodium 136 mmol/L (137-145)
[2020-02-28] MEDS: FAMOTIDINE 20 MG TAB PO SCH ×2 (08:35→20:03)
[2020-02-28] MEDS: hydroCHLOROthiazide 25 MG TAB PO SCH (08:36)
[2020-02-28] MEDS: atenoloL 25 MG TAB PO SCH ×2 (08:36→20:04)
[2020-02-28] MEDS: ATORVASTATIN 80 MG TAB PO SCH (08:36)
[2020-02-28] MEDS: lisinopriL 20 MG TAB PO SCH ×2 (08:36→20:04)
[2020-02-28] MEDS: VENLAFAXINE HCL 50 MG TAB PO SCH ×2 (08:37→20:04)
[2020-02-28] MEDS: HEPARIN SODIUM,PORCINE 5,000 UNIT/ML 1 ML VIAL SQ SCH ×2 (08:38→20:02)
[2020-02-28] MEDS: ASPIRIN 81 MG PO SCH (08:44)
[2020-02-28] MEDS ORDERED: amLODIPine 5 MG TAB PO SCH (09:15)
--- NOTE | 2020-02-28 09:58 | PN ---
PROGRESS NOTE Mrs. Bustamante is a 64-year-old female with history of diffuse vascular disease, chronic tobacco use, history of hypertension, who presented with uncontrolled hypertension. She has evidence of right subclavian stenosis. She is feeling better today. Her breathing is better. She denies any chest pain. No dizziness. No palpitation. She continues to be on . She had an echocardiogram yesterday that revealed a preserved ventricular size and systolic function. She continues to be on aspirin once a day, Tenormin 25 mg twice a day, Lipitor 80 mg daily, hydrochlorothiazide 25 mg daily, lisinopril 20 mg twice a day. PHYSICAL EXAMINATION: Blood pressure running in the 140-160s with a heart rate in 60s. LUNGS: Clear. HEART: Regular rhythm S1, S2. No S3 with systolic ejection murmur heard at the base. No diastolic murmur. No rub. NECK: Bilateral carotid bruit as well as subclavian bruit more noted on the right side. ABDOMEN: Soft nontender. EXTREMITIES: No edema. LAB DATA: BUN and creatinine of 17 and 0.74. Blood sugar 182, LDL of 106. IMPRESSION: 1. Hypertension, uncontrolled. Under better control at this time. 2. Diffuse peripheral vascular disease. 3. History of hyperlipidemia. 4. Chronic tobacco use. RECOMMENDATION: I will stop the and add amlodipine 5 mg daily, increase her level of activity. If she remains stable, hopefully, she can be discharged home in the next 24 hours and followed as an outpatient. MMODL / IJN: [id number] /
[2020-02-28] MEDS ORDERED: amLODIPine 5 MG TAB PO STA (10:11)
[2020-02-28] MEDS: ALPRAZolam 0.25 MG TAB PO SCH ×2 (11:08→22:01)
--- NOTE | 2020-02-28 13:30 | P.PN ---
Subjective Progress Note Date: 02/28/20 Principal diagnosis: Hypertensive emergency. This is a 64-year-old female with history of hypertension, maintained normally on enalapril at 15 mg twice a day and Tenormin 50 mg twice a day. Patient presented to the ER yesterday, mostly complaining of blood pressure being elevat ed. Blood pressure in the left arm was over 200 systolic, patient had no significant complaints, no shortness of breath, no chest pain, no PND, no orthopnea, no headache, no blurred vision. She is known to have history of significant vascular disease, mostly carotid vascular disease and asymptomatic in nature. Considering her significantly elevated blood pressure in the ER, patient was placed on clevidipine drip, admitted to the ICU, and this consult was initiated. Patient was already seen by cardiology, and by vascular surgery, placed on oral meds, clevidipine is being tapered down to maintain a systolic blood pressure of 160. Patient has no active symptoms. Patient was noted to have discrepancy in blood pressure readings between right arm and left arm, patient may have subclavian stenosis without any symptoms. Reevaluated today on 02/28/20, patient is doing well, remains in the ICU, off clevidipine drip, mostly on oral medications for blood pressure. Remains a bit high, hence I increased her amlodipine to 5 mg twice a day. And I recommended Xanax 0.25 mg every 12 hours patient is relatively asymptomatic. Her labs including CBC and basic metabolic profile are normal. Objective - Vital Signs Vital signs: Vital Signs Temp 98.3 F 02/28/20 12:00 Pulse 53 L 02/28/20 13:00 Resp 17 02/28/20 13:00 BP 118/67 02/28/20 13:00 Pulse Ox 95 02/28/20 13:00 Intake & Output 02/27/20 02/28/20 02/28/20 18:59 06:59 18:59 Intake Total 829.101 654.000 97.6 Output Total 2700 1825 500 Balance -1870.899 -1171.000 -402.4 Weight 63.8 kg Intake: IV 700 240 80 Sodium Chloride 0.9% 1, 700 240 80 000 ml @ 20 mls/hr IV . Q24H [facility] Rx#:[id number] Intake, IV Titration 129.101 164.000 17.6 Amount Clevidipine Butyrate 25 129.101 164.000 17.6 mg In Empty Bag 1 bag @ 1 MG/HR 2 mls/hr IV .Q24H [facility] Rx#:[id number] Oral 250 Output: Urine 2700 1825 500 Other: Voiding Method Bedside Commode Bedside Commode Bedside Commode # Voids 0 0 1 - Exam Physical Exam: Revealed a 64-year-old female, pleasant, in no distress. Head: Atraumatic, normocephalic. HEENT:[Neck is supple.] [No neck masses.] [No thyromegaly.] [No JVD.] Chest: [Clear throughout, no crackles, no rhonchi, no wheezes.] Cardiac Exam: [Normal S1 and S2, no S3 gallop, 2/6 systolic murmur at the left lower sternal border. Abdomen: [Soft, nontender, no megaly, no rebound, no guarding, normal bowel sounds.] Extremities: [No clubbing, no edema, no cyanosis.] Neurological Exam: [No focal neurologic deficit.] Alert oriented 3. Psychiatric: Normal mood, affect and normal mental status examination. Skin: No rashes. - Labs CBC & Chem 7: 02/28/20 05:16 02/28/20 05:16 Labs: Abnormal Lab Results - Last 24 Hours (Table) 02/28/20 02/28/20 Range/Units 05:16 05:16 WBC 11.0 H (3.8-10.6) k/uL Sodium 136 L (137-145) mmol/L Glucose 104 H (74-99) mg/dL Assessment and Plan Assessment: Impression: Hypertensive emergency. Improving, the patient remains a bit elevated, but the patient is presently on multiple oral meds for blood pressure. History of carotid artery disease, asymptomatic. Chronic tobacco use. Dyslipidemia. Recommendation: Continue present medications. Increase Norvasc to 5 mg twice a day. Added Xanax 0.05 mg every 12 hours. Transfer patient to a monitor bed on selective today. Possible discharge planning in the next 24 hours Time with Patient: Less than 30
[2020-02-28] MEDS: SPIRONOLACTONE 25 MG TAB PO SCH (14:15)
[2020-02-28] MEDS: cloNIDine HCL 0.1 MG TAB PO SCH ×2 (17:48→22:01)
[2020-02-28] MEDS: hydrALAZINE HCL 25 MG TAB PO SCH ×2 (17:48→22:01)
--- NOTE | 2020-02-28 19:10 | P.PN ---
Subjective This is a pleasant 64 years old female with past medical history of hypertension via presents because of uncontrolled hypertension. She went to see her PCP Dr. Hargrove because she was feeling pounding headache to found to have discrepancy in her blood pressure measurement between the right and left sides, for example left-sided systolic BP is 200 while on the right side is in 120s as per patient. Dr. Hargrove referred the patient to Dr. Short who evaluated the patient and vascular disease was suspected however her blood pressure remained high when she went home with SBP was around 240-260 so she decided to come to the hospital. Also she had some chest pressure which is better now. Admission her blood pressure was 260/107. Currently blood pressure 121/87, heart rate 59, rest of vital signs stable showing unremarkable CBC, INR, BMP, liver enzymes. Troponins are negative 3, UA is negative. EKG showing normal sinus rhythm at [address]-T changes. Negative CT of the brain for acute. CTA of the brain showing 80% stenosis of the left internal carotid artery and 15% on the right internal carotid artery CTA of the chest showing no PE, pulmonary emphysema there is some thrombus in the abdominal aorta and luminal narrowing and probably some degree of abdominal aortic aneurysm In the emergency room she was started on normal saline at 100 mL per hour. She is also on aspirin Chlorine Operator and cardiovascular consult has been called. Patient was admitted to the ICU 02/28/2020 Patient remains in the ICU, no specific complaint. No chest pain or dyspnea and she is fully awake. Blood pressure still elevated 179/67 on the left side while 118/67 on the right side. . Heart rate is 59 Spironolactone 25 mg and Catapres 0.1 mg twice a day and hydralazine 25 mg 3 times a day was added, as well as Norvasc 5 mg twice a day. Patient also lisinopril 20 mg twice a day and atenolol 25 mg twice a day. Showing mild leukocytosis of 11 K. Patient is to be transferred out of the ICU today. Review of Systems CONSTITUTIONAL: No fever, no malaise, no fatigue. HEENT: No recent visual problems or hearing problems. Denied any sore throat. CARDIOVASCULAR: No orthopnea, PND, no palpitations, no syncope. PULMONARY: No shortness of breath, no cough, no hemoptysis. GASTROINTESTINAL: No diarrhea, no nausea, no vomiting, no abdominal pain. Normoactive bowel sounds. NEUROLOGICAL: No headaches, no weakness, no numbness. HEMATOLOGICAL: Denies any bleeding or petechiae. GENITOURINARY: Denies any burning micturition, frequency, or urgency. MUSCULOSKELETAL/RHEUMATOLOGICAL: Denies any joint pain, swelling, or any muscle pain. ENDOCRINE: Denies any polyuria or polydipsia. Active Medications Generic Name Dose Route Start Last Admin Trade Name Freq PRN Reason Stop Dose Admin Alprazolam 0.25 mg 02/28/20 11:00 02/28/20 11:08 Xanax PO 0.25 mg BID [facility] Administration Amlodipine Besylate 5 mg 02/28/20 21:00 Norvasc PO BID [facility] Aspirin 81 mg 02/27/20 09:00 02/28/20 08:44 Aspirin PO 81 mg DAILY [facility] Administration Atenolol 25 mg 02/27/20 09:00 02/28/20 08:36 Tenormin PO 25 mg BID [facility] Administration Atorvastatin Calcium 80 mg 02/27/20 09:00 02/28/20 08:36 Lipitor PO 80 mg DAILY [facility] Administration Clonidine 0.1 mg 02/28/20 17:37 02/28/20 17:48 Catapres PO 0.1 mg BID [facility] Administration Famotidine 20 mg 02/28/20 09:00 02/28/20 08:35 Pepcid PO 20 mg BID [facility] Administration Heparin Sodium (Porcine) 5,000 unit 02/28/20 09:00 02/28/20 08:38 Heparin SQ Not Given Q12HR [facility] Hydralazine HCl 25 mg 02/28/20 17:45 02/28/20 17:48 Apresoline PO 25 mg TID [facility] Administration Hydrochlorothiazide 25 mg 02/27/20 09:00 02/28/20 08:36 Hydrodiuril PO 25 mg DAILY [facility] Administration Lisinopril 20 mg 02/27/20 09:00 02/28/20 08:36 Zestril PO 20 mg BID [facility] Administration Spironolactone 25 mg 02/28/20 14:15 02/28/20 14:15 Aldactone PO 25 mg DAILY [facility] Administration Venlafaxine HCl 50 mg 02/27/20 09:00 02/28/20 08:37 Effexor PO 50 mg BID [facility] Administration Objective - Vital Signs Vital signs: Vital Signs Temp 98.3 F 02/28/20 12:00 Pulse 53 L 02/28/20 13:00 Resp 17 02/28/20 13:00 BP 118/67 02/28/20 12:45 Pulse Ox 95 02/28/20 13:00 Intake & Output 02/27/20 02/28/20 02/28/20 18:59 06:59 18:59 Intake Total 829.101 654.000 97.6 Output Total 2700 1825 500 Balance -1870.899 -1171.000 -402.4 Weight 63.8 kg Intake: IV 700 240 80 Sodium Chloride 0.9% 1, 700 240 80 000 ml @ 20 mls/hr IV . Q24H [facility] Rx#:[id number] Intake, IV Titration 129.101 164.000 17.6 Amount Clevidipine Butyrate 25 129.101 164.000 17.6 mg In Empty Bag 1 bag @ 1 MG/HR 2 mls/hr IV .Q24H [facility] Rx#:[id number] Oral 250 Output: Urine 2700 1825 500 Other: Voiding Method Bedside Commode Bedside Commode Bedside Commode # Voids 0 0 1 - Exam GENERAL: The patient is alert and oriented x3, not in any acute distress. Well developed, well nourished. HEENT: Pupils are round and equally reacting to light. EOMI. No scleral icterus. No conjunctival pallor. Normocephalic, atraumatic. No pharyngeal erythema. No thyromegaly. CARDIOVASCULAR: S1 and S2 present. No murmurs, rubs, or gallops. PULMONARY: Chest is clear to auscultation, no wheezing or crackles. ABDOMEN: Soft, nontender, nondistended, normoactive bowel sounds. No palpable organomegaly. MUSCULOSKELETAL: No joint swelling or deformity. EXTREMITIES: No cyanosis, clubbing, or pedal edema. NEUROLOGICAL: Gross neurological examination did not reveal any focal deficits. SKIN: No rashes. no petechiae. - Labs CBC & Chem 7: 02/28/20 05:16 02/28/20 05:16 Labs: Abnormal Lab Results - Last 24 Hours (Table) 02/28/20 02/28/20 Range/Units 05:16 05:16 WBC 11.0 H (3.8-10.6) k/uL Sodium 136 L (137-145) mmol/L Glucose 104 H (74-99) mg/dL Assessment and Plan Assessment: Hypertensive urgency Abdominal aortic narrowing with possible thrombosis Left internal carotid artery stenosis by 80% Emphysema, not an active issue Plan: This is a pleasant 64 years old female who presents with hypertensive urgency and aortic stenosis with possible thrombosis. Continue with blood pressure medication of beta mildred, hydrochlorothiazide and KAUSHIK inhibitor, Catapres and hydralazine added as well as spironolactone. and monitor blood pressure closely Continue with aspirin. Follow-up recommendation by disease education specialist, cardiovascular surgery service. Pulmonary/critical care team on the case as well vascular surgery team recommended no need for urgent vascular surgical intervention and no need for anticoagulation Labs and medication were reviewed.. Continue same treatment. Continue with symptomatic treatment. Resume home medication. Monitor lytes and vitals. DVT and GI prophylaxis. Further recommendations of the clinical course of the patient DVT prophylaxis: Subcutaneous heparin GI Prophylaxis: Pepcid Prognosis is guarded
[2020-02-28] MEDS: amLODIPine 5 MG TAB PO SCH (20:03)
[2020-02-28] MEDS ORDERED: ALPRAZolam 0.25 MG TAB PO SCH (21:00)
[2020-02-29 04:52] LABS: HCT 43.8 % (34.0-46.0); HGB 14.2 gm/dL (11.4-16.0); MCH 31.4 pg (25.0-35.0); MCHC 32.4 g/dL (31.0-37.0); MCV 96.9 fL (80.0-100.0); Mean Platelet Volume 7.8; Platelet Count 187 k/uL (150-450); RBC 4.51 m/uL (3.80-5.40); RDW 12.7 % (11.5-15.5); WBC 10.8 k/uL (3.8-10.6)
[2020-02-29 05:00] LABS: Calcium 8.9 mg/dL (8.4-10.2); Potassium 3.8 mmol/L (3.5-5.1)
[2020-02-29] MEDS: amLODIPine 5 MG TAB PO SCH ×2 (08:49→20:17)
[2020-02-29] MEDS: lisinopriL 20 MG TAB PO SCH ×2 (08:49→20:17)
[2020-02-29] MEDS: FAMOTIDINE 20 MG TAB PO SCH ×2 (08:50→20:16)
[2020-02-29] MEDS: hydroCHLOROthiazide 25 MG TAB PO SCH (08:50)
[2020-02-29] MEDS: VENLAFAXINE HCL 50 MG TAB PO SCH ×2 (08:50→20:17)
[2020-02-29] MEDS: ATORVASTATIN 80 MG TAB PO SCH (08:50)
[2020-02-29] MEDS: cloNIDine HCL 0.1 MG TAB PO SCH (08:50)
[2020-02-29] MEDS: SPIRONOLACTONE 25 MG TAB PO SCH (08:50)
[2020-02-29] MEDS: hydrALAZINE HCL 25 MG TAB PO SCH ×3 (08:50→21:46)
[2020-02-29] MEDS: ASPIRIN 81 MG PO SCH (08:50)
[2020-02-29] MEDS: atenoloL 25 MG TAB PO SCH (08:51)
[2020-02-29] MEDS: HEPARIN SODIUM,PORCINE 5,000 UNIT/ML 1 ML VIAL SQ SCH ×2 (08:51→20:17)
--- NOTE | 2020-02-29 10:32 | PN ---
PROGRESS NOTE Mrs. Mcclure is a 64-year-old female with a known history of vascular disease, who presented with elevation of her blood pressure. She continues to have significant discrepancy between the left and right upper extremity blood pressure and has known obstructive disease in the right subclavian. She is feeling better this morning. She denies any chest pain. She denies any dizziness or palpitation. She denies any nausea. She felt a little bit dizzy when she stood up earlier. She had an echocardiogram performed that revealed a preserved left ventricular size and systolic function with mild mitral and tricuspid regurgitation. She continues to have episode of hypertension on the left arm, although better overall. She continues to be on amlodipine 5 mg twice a day, aspirin once a day, atenolol 25 mg twice a day, Lipitor 80 mg daily, clonidine 0.1 mg twice a day, hydralazine 25 mg 3 times a day, lisinopril 20 mg twice a day and spironolactone 25 mg daily. PHYSICAL EXAMINATION: Blood pressure running in the 150/100 with a heart rate in the high 40s, low 50s. LUNGS: Clear. Heart regular rate and rhythm S1, S2. No S3 with systolic murmur, ejection type 2/6. No diastolic murmur. Bilateral carotid bruit noted and subclavian bruit. ABDOMEN: Soft, nontender. Positive bowel sounds. No organomegaly. EXTREMITIES: No edema. LAB DATA: Revealed BUN and creatinine 32 and 0.88, potassium 3.8, hemoglobin of 14.2. Her sodium is 132. IMPRESSION: 1. Hypertension, remains elevated. 2. Subclavian stenosis. 3. Hyponatremia. 4. Obstructive carotid disease. 5. Chronic tobacco use. RECOMMENDATIONS: I will switch her from atenolol to carvedilol. I will increase the dose of her hydralazine at this time and cut down the dose of her clonidine. Continue to follow her sodium and increase her activity and depending on her progress, further recommendations will be made. MMODL / IJN: [id number] /
[2020-02-29] MEDS: carvediloL 3.125 MG TAB PO SCH ×2 (10:53→17:23)
[2020-02-29] MEDS: ALPRAZolam 0.25 MG TAB PO SCH ×2 (10:53→20:16)
--- NOTE | 2020-02-29 12:24 | P.PN ---
Subjective Progress Note Date: 02/29/20 Principal diagnosis: Hypertensive emergency. This is a 64-year-old female with history of hypertension, maintained normally on enalapril at 15 mg twice a day and Tenormin 50 mg twice a day. Patient presented to the ER yesterday, mostly complaining of blood pressure being elevat ed. Blood pressure in the left arm was over 200 systolic, patient had no significant complaints, no shortness of breath, no chest pain, no PND, no orthopnea, no headache, no blurred vision. She is known to have history of significant vascular disease, mostly carotid vascular disease and asymptomatic in nature. Considering her significantly elevated blood pressure in the ER, patient was placed on clevidipine drip, admitted to the ICU, and this consult was initiated. Patient was already seen by cardiology, and by vascular surgery, placed on oral meds, clevidipine is being tapered down to maintain a systolic blood pressure of 160. Patient has no active symptoms. Patient was noted to have discrepancy in blood pressure readings between right arm and left arm, patient may have subclavian stenosis without any symptoms. Reevaluated today on 02/28/20, patient is doing well, remains in the ICU, off clevidipine drip, mostly on oral medications for blood pressure. Remains a bit high, hence I increased her amlodipine to 5 mg twice a day. And I recommended Xanax 0.25 mg every 12 hours patient is relatively asymptomatic. Her labs including CBC and basic metabolic profile are normal. Reevaluated today on 02/29/20, patient is sitting in bed, on room air, in no distress. Blood pressure remains elevated, she is now on multiple oral medications including amlodipine atenolol clonidine and hydralazine. As well as lisinopril and spironolactone. Patient denies any other symptoms. No chest pain no shortness of breath no cough no headache, she feels fine, blood pressures 150s systolic over 100. Objective - Vital Signs Vital signs: Vital Signs Temp 97.8 F 02/29/20 00:00 Pulse 50 L 02/29/20 09:43 Resp 21 02/29/20 08:00 BP 129/56 02/29/20 09:43 Pulse Ox 91 L 02/29/20 08:00 Intake & Output 02/28/20 02/29/20 02/29/20 18:59 06:59 18:59 Intake Total 97.6 250 Output Total 1600 700 Balance -1502.4 -450 Weight 64.9 kg Intake: IV 80 Sodium Chloride 0.9% 1, 80 000 ml @ 20 mls/hr IV . Q24H [facility] Rx#:[id number] Intake, IV Titration 17.6 Amount Clevidipine Butyrate 25 17.6 mg In Empty Bag 1 bag @ 1 MG/HR 2 mls/hr IV .Q24H [facility] Rx#:[id number] Oral 250 Output: Urine 1600 700 Other: Voiding Method Bedside Commode Bedside Commode # Voids 1 1 - Exam Physical Exam: Revealed a 64-year-old female, pleasant, in no distress. Head: Atraumatic, normocephalic. HEENT:[Neck is supple.] [No neck masses.] [No thyromegaly.] [No JVD.] Chest: [Clear throughout, no crackles, no rhonchi, no wheezes.] Cardiac Exam: [Normal S1 and S2, no S3 gallop, 2/6 systolic murmur at the left lower sternal border. Abdomen: [Soft, nontender, no megaly, no rebound, no guarding, normal bowel sounds.] Extremities: [No clubbing, no edema, no cyanosis.] Neurological Exam: [No focal neurologic deficit.] Alert oriented 3. Psychiatric: Normal mood, affect and normal mental status examination. Skin: No rashes. - Labs CBC & Chem 7: 02/29/20 04:33 02/29/20 04:33 Labs: Abnormal Lab Results - Last 24 Hours (Table) 02/29/20 02/29/20 Range/Units 04:33 04:33 WBC 10.8 H (3.8-10.6) k/uL Sodium 132 L (137-145) mmol/L BUN 32 H (7-17) mg/dL Assessment and Plan Assessment: Impression: Hypertensive emergency. Improving, the patient remains a bit elevated, but the patient is presently on multiple oral meds for blood pressure. History of carotid artery disease, asymptomatic. Chronic tobacco use. Dyslipidemia. Recommendation: Continue present medications. Ordered a 24-hour urine metanephrine level, Switched from atenolol to Coreg by cardiology. Hydralazine dose was increased. Remains on clonidine. Continue to monitor in the ICU for the next 24 hours Time with Patient: Less than 30
--- NOTE | 2020-02-29 16:21 | P.PN ---
Subjective This is a pleasant 64 years old female with past medical history of hypertension via presents because of uncontrolled hypertension. She went to see her PCP Dr. Hargrove because she was feeling pounding headache to found to have discrepancy in her blood pressure measurement between the right and left sides, for example left-sided systolic BP is 200 while on the right side is in 120s as per patient. Dr. Hargrove referred the patient to Dr. Short who evaluated the patient and vascular disease was suspected however her blood pressure remained high when she went home with SBP was around 240-260 so she decided to come to the hospital. Also she had some chest pressure which is better now. Admission her blood pressure was 260/107. Currently blood pressure 121/87, heart rate 59, rest of vital signs stable showing unremarkable CBC, INR, BMP, liver enzymes. Troponins are negative 3, UA is negative. EKG showing normal sinus rhythm at [address]-T changes. Negative CT of the brain for acute. CTA of the brain showing 80% stenosis of the left internal carotid artery and 15% on the right internal carotid artery CTA of the chest showing no PE, pulmonary emphysema there is some thrombus in the abdominal aorta and luminal narrowing and probably some degree of abdominal aortic aneurysm In the emergency room she was started on normal saline at 100 mL per hour. 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 Patient was admitted to the ICU 02/28/2020 Patient remains in the ICU, no specific complaint. No chest pain or dyspnea and she is fully awake. Blood pressure still elevated 179/67 on the left side while 118/67 on the right side. . Heart rate is 59 Spironolactone 25 mg and Catapres 0.1 mg twice a day and hydralazine 25 mg 3 times a day was added, as well as Norvasc 5 mg twice a day. Patient also lisinopril 20 mg twice a day and atenolol 25 mg twice a day. Showing mild leukocytosis of 11 K. Patient is to be transferred out of the ICU today. 02/29/2020 Patient seen and examined in the ICU, she is with no chest pain or dyspnea today. Fully awake. Blood pressure still uncontrolled and her medication adjusted including changing atenolol to a small dose of Coreg at 3.125 mg twice a day, hydralazine increased to 50 mg 3 times a day one lowering clonidine to 0.1 mg daily, patient remains on Aldactone, Norvasc and lisinopril. Urine metanephrine has been ordered Review of Systems CONSTITUTIONAL: No fever, no malaise, no fatigue. HEENT: No recent visual problems or hearing problems. Denied any sore throat. CARDIOVASCULAR: No orthopnea, PND, no palpitations, no syncope. PULMONARY: No shortness of breath, no cough, no hemoptysis. GASTROINTESTINAL: No diarrhea, no nausea, no vomiting, no abdominal pain. Normoactive bowel sounds. NEUROLOGICAL: No headaches, no weakness, no numbness. HEMATOLOGICAL: Denies any bleeding or petechiae. GENITOURINARY: Denies any burning micturition, frequency, or urgency. MUSCULOSKELETAL/RHEUMATOLOGICAL: Denies any joint pain, swelling, or any muscle pain. ENDOCRINE: Denies any polyuria or polydipsia. Active Medications Generic Name Dose Route Start Last Admin Trade Name Freq PRN Reason Stop Dose Admin Alprazolam 0.25 mg 02/28/20 11:00 02/29/20 10:53 Xanax PO Not Given BID [facility] Amlodipine Besylate 5 mg 02/28/20 21:00 02/29/20 08:49 Norvasc PO 5 mg BID [facility] Administration Aspirin 81 mg 02/27/20 09:00 02/29/20 08:50 Aspirin PO 81 mg DAILY [facility] Administration Atorvastatin Calcium 80 mg 02/27/20 09:00 02/29/20 08:50 Lipitor PO 80 mg DAILY [facility] Administration Carvedilol 3.125 mg 02/29/20 09:30 02/29/20 10:53 Coreg PO 3.125 mg BID-W/MEALS [facility] Administration Clonidine 0.1 mg 03/01/20 09:00 Catapres PO DAILY [facility] Famotidine 20 mg 02/28/20 09:00 02/29/20 08:50 Pepcid PO 20 mg BID [facility] Administration Heparin Sodium (Porcine) 5,000 unit 02/28/20 09:00 02/29/20 08:51 Heparin SQ Not Given Q12HR [facility] Hydralazine HCl 50 mg 02/29/20 16:00 02/29/20 15:45 Apresoline PO 50 mg TID [facility] Administration Hydrochlorothiazide 25 mg 02/27/20 09:00 02/29/20 08:50 Hydrodiuril PO 25 mg DAILY [facility] Administration Lisinopril 20 mg 02/27/20 09:00 02/29/20 08:49 Zestril PO 20 mg BID [facility] Administration Spironolactone 25 mg 02/28/20 14:15 02/29/20 08:50 Aldactone PO 25 mg DAILY [facility] Administration Venlafaxine HCl 50 mg 02/27/20 09:00 02/29/20 08:50 Effexor PO 50 mg BID [facility] Administration Objective - Vital Signs Vital signs: Vital Signs Temp 97.8 F 02/29/20 00:00 Pulse 50 L 02/29/20 09:43 Resp 21 02/29/20 08:00 BP 129/56 02/29/20 09:43 Pulse Ox 91 L 02/29/20 08:00 Intake & Output 02/28/20 02/29/20 02/29/20 18:59 06:59 18:59 Intake Total 97.6 250 Output Total 1600 700 Balance -1502.4 -450 Weight 64.9 kg Intake: IV 80 Sodium Chloride 0.9% 1, 80 000 ml @ 20 mls/hr IV . Q24H [facility] Rx#:[id number] Intake, IV Titration 17.6 Amount Clevidipine Butyrate 25 17.6 mg In Empty Bag 1 bag @ 1 MG/HR 2 mls/hr IV .Q24H [facility] Rx#:[id number] Oral 250 Output: Urine 1600 700 Other: Voiding Method Bedside Commode Bedside Commode # Voids 1 1 - Exam GENERAL: The patient is alert and oriented x3, not in any acute distress. Well developed, well nourished. HEENT: Pupils are round and equally reacting to light. EOMI. No scleral icterus. No conjunctival pallor. Normocephalic, atraumatic. No pharyngeal erythema. No thyromegaly. CARDIOVASCULAR: S1 and S2 present. No murmurs, rubs, or gallops. PULMONARY: Chest is clear to auscultation, no wheezing or crackles. ABDOMEN: Soft, nontender, nondistended, normoactive bowel sounds. No palpable organomegaly. MUSCULOSKELETAL: No joint swelling or deformity. EXTREMITIES: No cyanosis, clubbing, or pedal edema. NEUROLOGICAL: Gross neurological examination did not reveal any focal deficits. SKIN: No rashes. no petechiae. - Labs CBC & Chem 7: 02/29/20 04:33 02/29/20 04:33 Labs: Abnormal Lab Results - Last 24 Hours (Table) 02/29/20 02/29/20 Range/Units 04:33 04:33 WBC 10.8 H (3.8-10.6) k/uL Sodium 132 L (137-145) mmol/L BUN 32 H (7-17) mg/dL Assessment and Plan Assessment: Hypertensive urgency Abdominal aortic narrowing with possible thrombosis Left internal carotid artery stenosis by 80% Emphysema, not an active issue Plan: This is a pleasant 64 years old female who presents with hypertensive urgency and aortic stenosis with possible thrombosis. Continue with blood pressure medication of beta mildred, hydrochlorothiazide and KAUSHIK inhibitor, Catapres and hydralazine added as well as spironolactone. and monitor blood pressure closely Continue with aspirin. Follow-up recommendation by telemarketing sales representative, cardiovascular surgery service. Pulmonary/critical care team on the case as well vascular surgery team recommended no need for urgent vascular surgical intervention and no need for anticoagulation Follow-up urine metanephrine Labs and medication were reviewed.. Continue same treatment. Continue with symptomatic treatment. Resume home medication. Monitor lytes and vitals. DVT and GI prophylaxis. Further recommendations of the clinical course of the patient DVT prophylaxis: Subcutaneous heparin GI Prophylaxis: Pepcid Prognosis is guarded
[2020-03-01] MEDS: carvediloL 3.125 MG TAB PO SCH ×2 (06:41→16:36)
[2020-03-01 06:51] LABS: Calcium 9.1 mg/dL (8.4-10.2); Potassium 4.3 mmol/L (3.5-5.1)
[2020-03-01] MEDS: SPIRONOLACTONE 25 MG TAB PO SCH (08:08)
[2020-03-01] MEDS: hydroCHLOROthiazide 25 MG TAB PO SCH (08:08)
[2020-03-01] MEDS: lisinopriL 20 MG TAB PO SCH ×2 (08:08→21:41)
[2020-03-01] MEDS: amLODIPine 5 MG TAB PO SCH ×2 (08:08→21:41)
[2020-03-01] MEDS: ATORVASTATIN 80 MG TAB PO SCH (08:08)
[2020-03-01] MEDS: hydrALAZINE HCL 25 MG TAB PO SCH ×3 (08:09→21:41)
[2020-03-01] MEDS: cloNIDine HCL 0.1 MG TAB PO SCH (08:09)
[2020-03-01] MEDS: ASPIRIN 81 MG PO SCH (08:09)
[2020-03-01] MEDS: HEPARIN SODIUM,PORCINE 5,000 UNIT/ML 1 ML VIAL SQ SCH ×2 (08:09→21:40)
[2020-03-01] MEDS: FAMOTIDINE 20 MG TAB PO SCH ×2 (08:09→21:41)
[2020-03-01] MEDS: VENLAFAXINE HCL 50 MG TAB PO SCH ×2 (08:12→21:41)
[2020-03-01] MEDS: ALPRAZolam 0.25 MG TAB PO SCH ×2 (08:14→21:41)
--- NOTE | 2020-03-01 11:19 | P.PN ---
Subjective This is a pleasant 64 years old female with past medical history of hypertension via presents because of uncontrolled hypertension. She went to see her PCP Dr. Hargrove because she was feeling pounding headache to found to have discrepancy in her blood pressure measurement between the right and left sides, for example left-sided systolic BP is 200 while on the right side is in 120s as per patient. Dr. Hargrove referred the patient to Dr. Short who evaluated the patient and vascular disease was suspected however her blood pressure remained high when she went home with SBP was around 240-260 so she decided to come to the hospital. Also she had some chest pressure which is better now. Admission her blood pressure was 260/107. Currently blood pressure 121/87, heart rate 59, rest of vital signs stable showing unremarkable CBC, INR, BMP, liver enzymes. Troponins are negative 3, UA is negative. EKG showing normal sinus rhythm at [address]-T changes. Negative CT of the brain for acute. CTA of the brain showing 80% stenosis of the left internal carotid artery and 15% on the right internal carotid artery CTA of the chest showing no PE, pulmonary emphysema there is some thrombus in the abdominal aorta and luminal narrowing and probably some degree of abdominal aortic aneurysm In the emergency room she was started on normal saline at 100 mL per hour. 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 Patient was admitted to the ICU 02/28/2020 Patient remains in the ICU, no specific complaint. No chest pain or dyspnea and she is fully awake. Blood pressure still elevated 179/67 on the left side while 118/67 on the right side. . Heart rate is 59 Spironolactone 25 mg and Catapres 0.1 mg twice a day and hydralazine 25 mg 3 times a day was added, as well as Norvasc 5 mg twice a day. Patient also lisinopril 20 mg twice a day and atenolol 25 mg twice a day. Showing mild leukocytosis of 11 K. Patient is to be transferred out of the ICU today. 02/29/2020 Patient seen and examined in the ICU, she is with no chest pain or dyspnea today. Fully awake. Blood pressure still uncontrolled and her medication adjusted including changing atenolol to a small dose of Coreg at 3.125 mg twice a day, hydralazine increased to 50 mg 3 times a day one lowering clonidine to 0.1 mg daily, patient remains on Aldactone, Norvasc and lisinopril. Urine metanephrine has been ordered 03/01/2020 Patient is moved to the select unit today. She remains asymptomatic however sometimes when she stands up she got dizzy especially if she do that quickly. This could be related to multiple antihypertensive added to her regimen. Labs showing 130 sodium. Rest of labs are unremarkable. 24 hour urine metanephrine and plasma metanephrines are pending. Patient to continue on same regimen of antihypertensive. And we will ask for PT/OT evaluation We will keep monitoring today Objective - Vital Signs Vital signs: Vital Signs Temp 97.6 F 03/01/20 08:00 Pulse 59 L 03/01/20 08:00 Resp 18 03/01/20 08:00 BP 135/61 03/01/20 08:00 Pulse Ox 96 03/01/20 08:00 Intake & Output 02/29/20 03/01/20 03/01/20 18:59 06:59 18:59 Intake Total 0 240 Output Total 850 1350 Balance -850 -1350 240 Weight 64.5 kg Intake: IV 0 Sodium Chloride 0.9% 1, 0 000 ml @ 20 mls/hr IV . Q24H [facility] Rx#:[id number] Oral 240 Output: Urine 850 1350 Other: Voiding Method Bedside Commode # Voids 0 - Exam GENERAL: The patient is alert and oriented x3, not in any acute distress. Well developed, well nourished. HEENT: Pupils are round and equally reacting to light. EOMI. No scleral icterus. No conjunctival pallor. Normocephalic, atraumatic. No pharyngeal erythema. No thyromegaly. CARDIOVASCULAR: S1 and S2 present. No murmurs, rubs, or gallops. PULMONARY: Chest is clear to auscultation, no wheezing or crackles. ABDOMEN: Soft, nontender, nondistended, normoactive bowel sounds. No palpable organomegaly. MUSCULOSKELETAL: No joint swelling or deformity. EXTREMITIES: No cyanosis, clubbing, or pedal edema. NEUROLOGICAL: Gross neurological examination did not reveal any focal deficits. SKIN: No rashes. no petechiae. - Labs CBC & Chem 7: 02/29/20 04:33 03/01/20 06:23 Labs: Abnormal Lab Results - Last 24 Hours (Table) 03/01/20 Range/Units 06:23 Sodium 130 L (137-145) mmol/L BUN 25 H (7-17) mg/dL Assessment and Plan Assessment: Hypertensive urgency Abdominal aortic narrowing with possible thrombosis Left internal carotid artery stenosis by 80% Emphysema, not an active issue Plan: This is a pleasant 64 years old female who presents with hypertensive urgency and aortic stenosis with possible thrombosis. Continue with blood pressure medication of beta mildred, hydrochlorothiazide and KAUSHIK inhibitor, Catapres and hydralazine added as well as spironolactone. and monitor blood pressure closely Continue with aspirin. Follow-up recommendation by die finisher, cardiovascular surgery service. Pulmonary/critical care team on the case as well vascular surgery team recommended no need for urgent vascular surgical intervention and no need for anticoagulation Follow-up urine metanephrine Labs and medication were reviewed.. Continue same treatment. Continue with symptomatic treatment. Resume home medication. Monitor lytes and vitals. DVT and GI prophylaxis. Further recommendations of the clinical course of the patient DVT prophylaxis: Subcutaneous heparin GI Prophylaxis: Pepcid Prognosis is guarded
--- NOTE | 2020-03-01 13:15 | P.PN ---
Subjective Progress Note Date: 03/01/20 Principal diagnosis: Hypertensive emergency This is a 64-year-old female with history of hypertension, maintained normally on enalapril at 15 mg twice a day and Tenormin 50 mg twice a day. Patient presented to the ER yesterday, mostly complaining of blood pressure being elevated. Blood pressure in the left arm was over 200 systolic, patient had no significant complaints, no shortness of breath, no chest pain, no PND, no orthopnea, no headache, no blurred vision. She is known to have history of significant vascular disease, mostly carotid vascular disease and asymptomatic in nature. Considering her significantly elevated blood pressure in the ER, patient was placed on clevidipine drip, admitted to the ICU, and this consult was initiated. Patient was already seen by cardiology, and by vascular surgery, placed on oral meds, clevidipine is being tapered down to maintain a systolic blood pressure of 160. Patient has no active symptoms. Patient was noted to have discrepancy in blood pressure readings between right arm and left arm, patient may have subclavian stenosis without any symptoms. Reevaluated today on 02/28/20, patient is doing well, remains in the ICU, off clevidipine drip, mostly on oral medications for blood pressure. Remains a bit high, hence I increased her amlodipine to 5 mg twice a day. And I recommended Xanax 0.25 mg every 12 hours patient is relatively asymptomatic. Her labs including CBC and basic metabolic profile are normal. Reevaluated today on 02/29/20, patient is sitting in bed, on room air, in no distress. Blood pressure remains elevated, she is now on multiple oral medications including amlodipine atenolol clonidine and hydralazine. As well as lisinopril and spironolactone. Patient denies any other symptoms. No chest pain no shortness of breath no cough no headache, she feels fine, blood pressures 150s systolic over 100. On 03/01/2020 patient seen in follow-up on selective care unit, she is resting comfortably in bed, in no acute distress, no altered mentation, denies any chest pain, denies any shortness of breath, room air pulse ox 96%, blood pressure is 129/57, afebrile, and respirations are nonlabored. Patient remains on a combination of Catapres, Norvasc, lisinopril, Aldactone, and Coreg. Cardiology is following Objective - Vital Signs Vital signs: Vital Signs Temp 98.1 F 03/01/20 12:00 Pulse 63 03/01/20 12:00 Resp 18 03/01/20 12:00 BP 129/57 03/01/20 12:00 Pulse Ox 96 03/01/20 12:00 Intake & Output 02/29/20 03/01/20 03/01/20 18:59 06:59 18:59 Intake Total 0 240 Output Total 850 1350 Balance -850 -1350 240 Weight 64.5 kg Intake: IV 0 Sodium Chloride 0.9% 1, 0 000 ml @ 20 mls/hr IV . Q24H [facility] Rx#:[id number] Oral 240 Output: Urine 850 1350 Other: Voiding Method Bedside Commode # Voids 0 - Exam GENERAL EXAM: Alert, very pleasant, 64-year-old white female on room air comfortable in no apparent distress. HEAD: Normocephalic/atraumatic. EYES: Normal reaction of pupils, equal size. Conjunctiva pink, sclera white. NOSE: Clear with pink turbinates. THROAT: No erythema or exudates. NECK: No masses, no JVD, no thyroid enlargement, no adenopathy. CHEST: No chest wall deformity. Symmetrical expansion. LUNGS: Equal air entry with no crackles, wheeze, rhonchi or dullness. CVS: Regular rate and rhythm, normal S1 and S2, no gallops, no murmurs, no rubs ABDOMEN: Soft, nontender. No hepatosplenomegaly, normal bowel sounds, no guarding or rigidity. EXTREMITIES: No clubbing, no edema, no cyanosis, 2+ pulses and upper and lower extremities. MUSCULOSKELETAL: Muscle strength and tone normal. SPINE: No scoliosis or deformity SKIN: No rashes CENTRAL NERVOUS SYSTEM: Alert and oriented -3. No focal deficits, tone is normal in all 4 extremities. PSYCHIATRIC: Alert and oriented -3. Appropriate affect. Intact judgment and insight. - Labs CBC & Chem 7: 02/29/20 04:33 03/01/20 06:23 Labs: Abnormal Lab Results - Last 24 Hours (Table) 03/01/20 Range/Units 06:23 Sodium 130 L (137-145) mmol/L BUN 25 H (7-17) mg/dL Assessment and Plan Plan: Assessment: #1. Hypertensive emergency, improved, and has been started on multiple oral medications for blood pressure #2. History of carotid artery disease, asymptomatic #3. Chronic tobacco use #4. Dyslipidemia Plan: Continue current medical treatment, vital signs are stable, no cognitive chest pain shortness of breath, no altered mentation. Oral blood pressure medications are being managed by cardiology. 24 hour urine metanephrine is in progress. I performed a history & physical examination of the patient and discussed their management with my nurse practitioner, Danii Guadarrama. I reviewed the nurse practitioner's note and agree with the documented findings and plan of care. Sonja ng sounds are positive for clear breath sounds. The findings and the impression was discussed with the patient. I attest to the documentation by the nurse practitioner. Time with Patient: Less than 30
--- NOTE | 2020-03-01 13:33 | P.PN ---
<Yumiko Tobias Louise - Last Filed: 03/01/20 13:33> Subjective Progress Note Date: 03/01/20 CHIEF COMPLAINT: hypertension HISTORY OF PRESENT ILLNESS: Patient examined this morning at the bedside. She denies chest pain. She denies shortness of breath. Her blood pressure has improved today. PHYSICAL EXAM: VITAL SIGNS: Reviewed. GENERAL: Well-developed in no acute distress. NECK: Supple. No JVD or thyromegaly LUNGS: Respirations even and unlabored. Lungs essentially clear to auscultation bilaterally. HEART: Regular rate and rhythm. S1 and S2 heard. EXTREMITIES: Normal range of motion. No clubbing or cyanosis. Peripheral pulses intact. No lower extremity edema ASSESSMENT: 1. Hypertension 2. Subclavian stenosis PLAN: -Continue current cardiac medications including Norvasc, aspirin, Lipitor, Coreg, Catapres, hydralazine, hydrochlorothiazide, lisinopril, and Aldactone Nurse practitioner note has been reviewed by physician. Signing provider agrees with the documented findings, assessment, and plan of care. Objective - Vital Signs Vital signs: Vital Signs Temp 97.6 F 03/01/20 08:00 Pulse 59 L 03/01/20 08:00 Resp 18 03/01/20 08:00 BP 135/61 03/01/20 08:00 Pulse Ox 96 03/01/20 08:00 Intake & Output 02/29/20 03/01/20 03/01/20 18:59 06:59 18:59 Intake Total 0 240 Output Total 850 1350 Balance -850 -1350 240 Weight 64.5 kg Intake: IV 0 Sodium Chloride 0.9% 1, 0 000 ml @ 20 mls/hr IV . Q24H [facility] Rx#:[id number] Oral 240 Output: Urine 850 1350 Other: Voiding Method Bedside Commode # Voids 0 - Labs CBC & Chem 7: 02/29/20 04:33 03/01/20 06:23 Labs: Abnormal Lab Results - Last 24 Hours (Table) 03/01/20 Range/Units 06:23 Sodium 130 L (137-145) mmol/L BUN 25 H (7-17) mg/dL <Guido Spears - Last Filed: 03/01/20 15:48> Subjective Agree with assessment and plan above. Patient with multiple peripheral arterial disease issues. She does admit to occasional lightheadedness and we will have to watch blood pressure and adjust accordingly. She denies however any subclavian steal-type symptoms with raising her right arm. Continue to monitor blood pressure cuff readings on the left side. Secondary hypertension workup has been initiated by primary team. May consider outpatient renal duplex ultrasound or CAT scan of the abdomen with contrast to rule out renal artery stenosis given her poly-vascular peripheral arterial disease. Her blood pressure appears improved and appears stable for discharge home with close outpatient follow-up. Objective - Vital Signs Vital signs: Vital Signs Temp 98.1 F 03/01/20 12:00 Pulse 63 03/01/20 12:00 Resp 18 03/01/20 12:00 BP 129/57 03/01/20 12:00 Pulse Ox 96 03/01/20 12:00 Intake & Output 02/29/20 03/01/20 03/01/20 18:59 06:59 18:59 Intake Total 0 240 Output Total 850 1350 500 Balance -850 -1350 -260 Weight 64.5 kg Intake: IV 0 Sodium Chloride 0.9% 1, 0 000 ml @ 20 mls/hr IV . Q24H [facility] Rx#:[id number] Oral 240 Output: Urine 850 1350 500 Other: Voiding Method Bedside Commode # Voids 0 2 - Labs CBC & Chem 7: 02/29/20 04:33 03/01/20 06:23 Labs: Abnormal Lab Results - Last 24 Hours (Table) 03/01/20 Range/Units 06:23 Sodium 130 L (137-145) mmol/L BUN 25 H (7-17) mg/dL
[2020-03-02 03:53] VITALS: TEMP 97.7
[2020-03-02] MEDS: carvediloL 3.125 MG TAB PO SCH (06:40)
[2020-03-02 07:15] LABS: Basophils # (A) 0.1 k/uL (0-0.2); Basophils % (A) 1 %; Eosinophils # (A) 0.1 k/uL (0-0.7); Eosinophils % (A) 1 %; HCT 45.2 % (34.0-46.0); HGB 14.6 gm/dL (11.4-16.0); Lymphocytes # (A) 2.9 k/uL (1.0-4.8); Lymphocytes % (A) 31 %; MCH 30.6 pg (25.0-35.0); MCHC 32.3 g/dL (31.0-37.0); MCV 94.7 fL (80.0-100.0); Mean Platelet Volume 7.8; Monocytes # (A) 0.6 k/uL (0-1.0); Monocytes % (A) 6 %; Neutrophils # (A) 5.4 k/uL (1.3-7.7); Neutrophils % (A) 58 %; Platelet Count 214 k/uL (150-450); RBC 4.77 m/uL (3.80-5.40); RDW 12.8 % (11.5-15.5); WBC 9.3 k/uL (3.8-10.6)
[2020-03-02 07:31] LABS: Calcium 9.4 mg/dL (8.4-10.2); Potassium 4.8 mmol/L (3.5-5.1)
--- NOTE | 2020-03-02 10:26 | P.PN ---
Subjective Progress Note Date: 03/02/20 Principal diagnosis: Hypertensive emergency This is a 64-year-old female with history of hypertension, maintained normally on enalapril at 15 mg twice a day and Tenormin 50 mg twice a day. Patient presented to the ER yesterday, mostly complaining of blood pressure being elevated. Blood pressure in the left arm was over 200 systolic, patient had no significant complaints, no shortness of breath, no chest pain, no PND, no orthopnea, no headache, no blurred vision. She is known to have history of significant vascular disease, mostly carotid vascular disease and asymptomatic in nature. Considering her significantly elevated blood pressure in the ER, patient was placed on clevidipine drip, admitted to the ICU, and this consult was initiated. Patient was already seen by cardiology, and by vascular surgery, placed on oral meds, clevidipine is being tapered down to maintain a systolic blood pressure of 160. Patient has no active symptoms. Patient was noted to have discrepancy in blood pressure readings between right arm and left arm, patient may have subclavian stenosis without any symptoms. Reevaluated today on 02/28/20, patient is doing well, remains in the ICU, off clevidipine drip, mostly on oral medications for blood pressure. Remains a bit high, hence I increased her amlodipine to 5 mg twice a day. And I recommended Xanax 0.25 mg every 12 hours patient is relatively asymptomatic. Her labs including CBC and basic metabolic profile are normal. Reevaluated today on 02/29/20, patient is sitting in bed, on room air, in no distress. Blood pressure remains elevated, she is now on multiple oral medications including amlodipine atenolol clonidine and hydralazine. As well as lisinopril and spironolactone. Patient denies any other symptoms. No chest pain no shortness of breath no cough no headache, she feels fine, blood pressures 150s systolic over 100. On 03/01/2020 patient seen in follow-up on selective care unit, she is resting comfortably in bed, in no acute distress, no altered mentation, denies any chest pain, denies any shortness of breath, room air pulse ox 96%, blood pressure is 129/57, afebrile, and respirations are nonlabored. Patient remains on a combination of Catapres, Norvasc, lisinopril, Aldactone, and Coreg. Cardiology is following On 03/02/2020 patient seen in follow-up on selective care unit, she is awake and alert, in no acute distress, her blood pressures have remained stable, this morning is 120/56, patient denies any shortness of breath, no altered mentation, room air pulse ox is 97%. Patient is afebrile, 24-hour urine metanephrine was sent, results are pending. No other issues overnight. Objective - Vital Signs Vital signs: Vital Signs Temp 97.7 F 03/02/20 03:50 Pulse 63 03/02/20 03:50 Resp 16 03/02/20 03:50 BP 120/56 03/02/20 03:50 Pulse Ox 97 03/02/20 03:50 Intake & Output 03/01/20 03/02/20 03/02/20 18:59 06:59 18:59 Intake Total 480 480 118 Output Total 500 Balance -20 480 118 Weight 60.4 kg Intake: Oral 480 480 118 Output: Urine 500 Other: # Voids 2 2 - Exam GENERAL EXAM: Alert, very pleasant, 64-year-old white female on room air comfortable in no apparent distress. HEAD: Normocephalic/atraumatic. EYES: Normal reaction of pupils, equal size. Conjunctiva pink, sclera white. NOSE: Clear with pink turbinates. THROAT: No erythema or exudates. NECK: No masses, no JVD, no thyroid enlargement, no adenopathy. CHEST: No chest wall deformity. Symmetrical expansion. LUNGS: Equal air entry with no crackles, wheeze, rhonchi or dullness. CVS: Regular rate and rhythm, normal S1 and S2, no gallops, no murmurs, no rubs ABDOMEN: Soft, nontender. No hepatosplenomegaly, normal bowel sounds, no guarding or rigidity. EXTREMITIES: No clubbing, no edema, no cyanosis, 2+ pulses and upper and lower extremities. MUSCULOSKELETAL: Muscle strength and tone normal. SPINE: No scoliosis or deformity SKIN: No rashes CENTRAL NERVOUS SYSTEM: Alert and oriented -3. No focal deficits, tone is normal in all 4 extremities. PSYCHIATRIC: Alert and oriented -3. Appropriate affect. Intact judgment and insight. - Labs CBC & Chem 7: 03/02/20 06:41 03/02/20 06:41 Labs: Abnormal Lab Results - Last 24 Hours (Table) 03/02/20 Range/Units 06:41 Sodium 130 L (137-145) mmol/L BUN 28 H (7-17) mg/dL Assessment and Plan Plan: Assessment: #1. Hypertensive emergency, improved, and has been started on multiple oral medications for blood pressure #2. History of carotid artery disease, asymptomatic #3. Chronic tobacco use #4. Dyslipidemia Plan: Continue current medical management, hemodynamically patient is stable, no worsening shortness of breath, or altered mentation, no complaints of chest pain, increase activity as tolerated, no acute events overnight. We will follow up on as-needed basis. I performed a history & physical examination of the patient and discussed their management with my nurse practitioner, Danii Guadarrama. I reviewed the nurse practitioner's note and agree with the documented findings and plan of care. Lung sounds are positive for clear breath sounds. The findings and the impression was discussed with the patient. I attest to the documentation by the nurse practitioner. Time with Patient: Less than 30
[2020-03-02] MEDS: ASPIRIN 81 MG PO SCH (11:07)
[2020-03-02] MEDS: FAMOTIDINE 20 MG TAB PO SCH (11:07)
[2020-03-02] MEDS: HEPARIN SODIUM,PORCINE 5,000 UNIT/ML 1 ML VIAL SQ SCH (11:07)
[2020-03-02] MEDS: cloNIDine HCL 0.1 MG TAB PO SCH (11:08)
[2020-03-02] MEDS: ATORVASTATIN 80 MG TAB PO SCH (11:08)
[2020-03-02] MEDS: hydrALAZINE HCL 25 MG TAB PO SCH ×2 (11:08→15:43)
[2020-03-02] MEDS: VENLAFAXINE HCL 50 MG TAB PO SCH (11:08)
[2020-03-02] MEDS: SPIRONOLACTONE 25 MG TAB PO SCH (11:08)
[2020-03-02] MEDS: lisinopriL 20 MG TAB PO SCH (11:08)
[2020-03-02] MEDS: amLODIPine 5 MG TAB PO SCH (11:08)
[2020-03-02] MEDS: ALPRAZolam 0.25 MG TAB PO SCH (11:14)
[2020-03-02] MEDS: hydroCHLOROthiazide 25 MG TAB PO SCH (11:14)
[2020-03-02 14:01] VITALS: BP 124/60; PULSE 72; RESP 18
--- NOTE | 2020-03-02 23:19 | P.DS ---
Providers Date of admission: 02/26/20 23:03 Attending physician: Abram Jackson Consults: 02/26/20 23:03 Consult Physician Routine Consulting Provider: Patria Matos Consult Reason/Comments: HTN Do you want consulting provider notified?: Yes Consult Physician Urgent Consulting Provider: Manuel Snow Consult Reason/Comments: known to zhang Do you want consulting provider notified?: Yes 02/26/20 23:13 Consult Physician Routine Consulting Provider: Carmen Chacon Consult Reason/Comments: icu Do you want consulting provider notified?: Yes Primary care physician: Beena Doherty [facility] Course: Diagnoses: Hypertensive urgency, with uncontrolled hypertension Abdominal aortic narrowing with possible thrombosis , no need for anticoagulation as per vascular surgery Left internal carotid artery stenosis by 80%, no need for surgical intervention by vascular surgery as well Emphysema, not an active issue Hospital course This is a pleasant 64 years old female with past medical history of hypertension via presents because of uncontrolled hypertension. She went to see her PCP Dr. Hargrove because she was feeling pounding headache to found to have discrepancy in her blood pressure measurement between the right and left sides, for example left-sided systolic BP is 200 while on the right side is in 120s as per patient. Dr. Hargrove referred the patient to Dr. Short who evaluated the patient and vascular disease was suspected however her blood pressure remained high when she went home with SBP was around 240-260 so she decided to come to the hospital. Patient initially was admitted to the ICU with hypertensive urgency and she was treated aggressively for her high blood pressure, supra consultants evaluated the patient including vascular surgery rotary furnace operator and pulmonary/critical care team. Negative CT of the brain for acute. CTA of the brain showing 80% stenosis of the left internal carotid artery and 15% on the right internal carotid artery CTA of the chest showing no PE, pulmonary emphysema there is some thrombus in the abdominal aorta and luminal narrowing and probably some degree of abdominal aortic aneurysm Eventually her blood pressure is been controlled with several medication including Coreg 3.125 mg, hydrochlorothiazide 25 mg daily lisinopril 20 mg twice daily spironolactone 25 mg daily, Catapres 0.1 mg daily, Norvasc 5 mg twice a day, hydralazine 50 mg 3 times a day. Patient also is on aspirin 81 mg. Eventually her blood pressure is controlled and systolic blood pressure was 120- 140, diastolic BP in 50s to 60s As per vascular surgery no need for anticoagulation and no need for surgical intervention. Patient remained stable over several days with no symptoms On the day of discharge patient denies any symptoms like no chest pain or dyspnea, no other complaints. Patient was eager to be discharged Patient was cleared for discharge by all consultants cardiopulmonary, cardiology and vascular surgery Problems and management plan were discussed with the patient and he verbalized understanding and acceptance Patient was found stable and can be discharged home however he needs follow-up as an outpatient. Patient was instructed to follow up with PCP Dr. Hargrove both within one week and patient agrees. Also patient was instructed to follow up with her rotary furnace operator Dr. Matos in [address] Short in 1-2 weeks and she agrees however patient wants to call and make her own appointments Gen: patient is a AAOx3, no distress CVS: S1-S2, RRR, no murmur Lungs: B/L CTA, no wheezing Abdomen: soft, no distention, no tenderness, positive bowel sounds Extremity: no leg edema or induration Time spent more than 35 minutes Patient Condition at Discharge: Fair Plan - Discharge Summary Discharge Rx Participant: No New Discharge Prescriptions: New Spironolactone [Aldactone] 25 mg PO DAILY #30 tab hydrALAZINE HCL [Apresoline] 50 mg PO TID #90 tab cloNIDine HCL [Catapres] 0.1 mg PO DAILY #30 tab carvediloL [Coreg] 3.125 mg PO BID-W/MEALS #60 tab hydroCHLOROthiazide [Hydrodiuril] 25 mg PO DAILY #30 tab Atorvastatin [Lipitor] 80 mg PO DAILY #30 tab amLODIPine [Norvasc] 5 mg PO BID #60 tab lisinopriL [Zestril] 20 mg PO BID #60 tab Continue Aspirin EC [Ecotrin Low Dose] 81 mg PO DAILY Atenolol [Tenormin] 50 mg PO BID Venlafaxine HCl [Effexor] 50 mg PO BID Discontinued Rosuvastatin Calcium 10 mg PO HS@2000 Enalapril [Vasotec] 10 mg PO BID Discharge Medication List Aspirin EC [Ecotrin Low Dose] 81 mg PO DAILY 02/26/20 [History] Atenolol [Tenormin] 50 mg PO BID 02/26/20 [History] Venlafaxine HCl [Effexor] 50 mg PO BID 02/26/20 [History] Atorvastatin [Lipitor] 80 mg PO DAILY #30 tab 03/02/20 [Rx] Spironolactone [Aldactone] 25 mg PO DAILY #30 tab 03/02/20 [Rx] amLODIPine [Norvasc] 5 mg PO BID #60 tab 03/02/20 [Rx] carvediloL [Coreg] 3.125 mg PO BID-W/MEALS #60 tab 03/02/20 [Rx] cloNIDine HCL [Catapres] 0.1 mg PO DAILY #30 tab 03/02/20 [Rx] hydrALAZINE HCL [Apresoline] 50 mg PO TID #90 tab 03/02/20 [Rx] hydroCHLOROthiazide [Hydrodiuril] 25 mg PO DAILY #30 tab 03/02/20 [Rx] lisinopriL [Zestril] 20 mg PO BID #60 tab 03/02/20 [Rx] Follow up Appointment(s)/Referral(s): [facility] [Provider Group] - 1 Week Beena Doherty MD [Primary Care Provider] - 1-2 days Tracy Short DO [STAFF PHYSICIAN] - 3 Weeks (3-4 weeks) Patient Instructions/Handouts: Hypertensive Crisis (ED) Activity/Diet/Wound Care/Special Instructions: heart healthy diet activity is limited till you see your doctor Discharge Disposition: HOME SELF-CARE
[2020-03-04 08:40] LABS: Metanephrines 24 Hour,Urine 150 ug/day (52-341); Normetanephrine 24 Hour,Urine 194 ug/day (88-444); Total Metanephrines 24 Hour,Ur 344 ug/day (140-785)
[2020-03-04 22:36] LABS: Metanephrine, Free <25 pg/mL (< OR = 57); Normetanephrine, Free <25 pg/mL (< OR = 148); Total, Free (MN + NMN) <25 pg/mL (< OR = 205)
== END 2020-03-02 17:09 | disposition home or self-care (01) | DRG 305 ==
LOC: EC 19:22 → 2SICU 23:03 → 3SCARD 02-29 17:04
PROVIDERS: ADMIT Hospitalist; ATTEND Hospitalist
DX: I16.1 Hypertensive emergency (principal); I74.09 Other arterial embolism and thrombosis of abdominal aorta; E87.1 Hypo-osmolality and hyponatremia; F41.9 Anxiety disorder, unspecified; F17.200 Nicotine dependence, unspecified, uncomplicated; I10 Essential (primary) hypertension; E78.5 Hyperlipidemia, unspecified; I35.0 Nonrheumatic aortic (valve) stenosis; I65.23 Occlusion and stenosis of bilateral carotid arteries; J43.9 Emphysema, unspecified; I73.9 Peripheral vascular disease, unspecified; I70.8 Atherosclerosis of other arteries; Z79.82 Long term (current) use of aspirin; Z79.899 Other long term (current) drug therapy
CPT/HCPCS: 36415; 70450; 70496; 70498; 71275; 80048; 80053; 80061; 81003; 83735; 83835; 83880; 84100; 84484; 85025; 85027; 85610; 85730; 93005; 93306; 96361; 96365; 96366; 99291

== ENCOUNTER 2020-03-05 11:31 | Inpatient (IN) | payer MEDICARE ==
[2020-03-05] MEDS ORDERED: ASPIRIN 81 MG PO STA (11:58)
[2020-03-05] MEDS ORDERED: NITROGLYCERIN OINT 1 INCH/GM PACKET TOPICAL STA (11:58)
--- NOTE | 2020-03-05 12:00 | ED ---
General Adult HPI - General Chief complaint: Chest Pain Stated complaint: Chest Pain Time Seen by Provider: 03/05/20 11:40 Source: patient, EMS, RN notes reviewed Mode of arrival: EMS Limitations: no limitations - History of Present Illness Initial comments: Patient is a pleasant 64-year-old female presenting to the emergency Department with complaints of chest discomfort. Onset of symptoms was this morning. Discomfort feels like tightness or pressure. Discomfort was medium 5 or 6/10 however now is mild 2/10. No radiation. Patient did feel short of breath and nauseated however those have resolved. No diaphoresis. No history of similar symptoms previously. Patient was recently in the hospital with diagnosis of subclavian stenosis and started on aspirin. - Related Data Home Medications Medication Instructions Recorded Confirmed Aspirin EC [Ecotrin Low Dose] 81 mg PO DAILY 02/26/20 03/05/20 Venlafaxine HCl [Effexor] 50 mg PO BID 02/26/20 03/05/20 carvediloL [Coreg] 3.125 mg PO AC-BID 03/05/20 03/05/20 Previous Rx's Medication Instructions Recorded Atorvastatin [Lipitor] 80 mg PO DAILY #30 tab 03/02/20 Spironolactone [Aldactone] 25 mg PO DAILY #30 tab 03/02/20 amLODIPine [Norvasc] 5 mg PO BID #60 tab 03/02/20 cloNIDine HCL [Catapres] 0.1 mg PO DAILY #30 tab 03/02/20 hydrALAZINE HCL [Apresoline] 50 mg PO TID #90 tab 03/02/20 hydroCHLOROthiazide [Hydrodiuril] 25 mg PO DAILY #30 tab 03/02/20 lisinopriL [Zestril] 20 mg PO BID #60 tab 03/02/20 Allergies Allergy/AdvReac Type Severity Reaction Status Date / Time losartan [From Cozaar] Allergy Itching Verified 03/05/20 12:54 Penicillins Allergy Swelling Verified 03/05/20 12:54 Review of Systems ROS Statement: Those systems with pertinent positive or pertinent negative responses have been documented in the HPI. ROS Other: All systems not noted in ROS Statement are negative. Constitutional: Denies: fever Eyes: Denies: eye pain ENT: Denies: ear pain Respiratory: Reports: as per HPI. Denies: cough Cardiovascular: Reports: as per HPI, chest pain Endocrine: Denies: fatigue Gastrointestinal: Denies: abdominal pain Genitourinary: Denies: dysuria Musculoskeletal: Denies: back pain Skin: Denies: rash Neurological: Denies: weakness Past Medical History Past Medical History: Hypertension Additional Past Medical History / Comment(s): carotid stenosis History of Any Multi-Drug Resistant Organisms: None Reported Past Surgical History: Tonsillectomy Additional Past Surgical History / Comment(s): abdominal laparotomy, fibroid tumor from uterus, fibroid from L breast Past Anesthesia/Blood Transfusion Reactions: Postoperative Nausea & Vomiting (PONV) Past Psychological History: Anxiety Smoking Status: Former smoker Past Alcohol Use History: Occasional Past Drug Use History: None Reported General Exam Limitations: no limitations General appearance: alert, in no apparent distress Head exam: Present: normocephalic Eye exam: Present: normal appearance Neck exam: Present: normal inspection Respiratory exam: Present: normal lung sounds bilaterally. Absent: chest wall tenderness Cardiovascular Exam: Present: regular rate, normal rhythm Expanded Peripheral pulses: 2+: Radial (R), Radial (L), Dorsalis Pedis (R), Dorsalis Pedis (L) GI/Abdominal exam: Present: soft. Absent: tenderness, guarding Extremities exam: Present: normal inspection. Absent: pedal edema, calf te nderness Neurological exam: Present: alert Psychiatric exam: Present: normal affect, normal mood Skin exam: Present: normal color Course Vital Signs 03/05/20 11:36 Temperature 97.7 F Pulse Rate 59 L Respiratory 18 Rate Blood Pressure 171/63 O2 Sat by Pulse 100 Oximetry EKG Findings - EKG Comments: EKG Findings:: Sinus bradycardia 58. VT 156. QRS 108. QT 460. QTC 451. Normal axis. LVH. No acute ST change. Medical Decision Making - Medical Decision Making Patient reevaluated and resting comfortably in bed. Symptoms have improved. Patient and family updated on results and plan. Case discussed in detail with Dr. Gonzalez, who will admit with cardiology consult. He would like to see patient prior to deciding if vascular will be consult. - Lab Data Result diagrams: 03/05/20 12:05 03/05/20 12:05 Lab Results 03/05/20 03/05/20 03/05/20 Range/Units 12:05 12:05 12:05 WBC 9.2 (3.8-10.6) k/uL RBC 4.44 (3.80-5.40) m/uL Hgb 13.4 (11.4-16.0) gm/dL Hct 41.9 (34.0-46.0) % MCV 94.4 (80.0-100.0) fL MCH 30.3 (25.0-35.0) pg MCHC 32.1 (31.0-37.0) g/dL RDW 12.6 (11.5-15.5) % Plt Count 211 (150-450) k/uL Neutrophils % 66 % Lymphocytes % 20 % Monocytes % 9 % Eosinophils % 1 % Basophils % 0 % Neutrophils # 6.1 (1.3-7.7) k/uL Lymphocytes # 1.8 (1.0-4.8) k/uL Monocytes # 0.9 (0-1.0) k/uL Eosinophils # 0.1 (0-0.7) k/uL Basophils # 0.0 (0-0.2) k/uL PT 9.5 (9.0-12.0) sec INR 0.9 (<1.2) APTT 25.0 (22.0-30.0) sec Sodium 127 L (137-145) mmol/L Potassium 4.6 (3.5-5.1) mmol/L Chloride 98 (98-107) mmol/L Carbon Dioxide 20 L (22-30) mmol/L Anion Gap 9 mmol/L BUN 22 H (7-17) mg/dL Creatinine 0.63 (0.52-1.04) mg/dL Est GFR (CKD-EPI)AfAm >90 (>60 ml/min/1.73 sqM) Est GFR (CKD-EPI)NonAf >90 (>60 ml/min/1.73 sqM) Glucose 133 H (74-99) mg/dL Calcium 8.7 (8.4-10.2) mg/dL Magnesium 2.0 (1.6-2.3) mg/dL Total Bilirubin 0.3 (0.2-1.3) mg/dL AST 43 H (14-36) U/L ALT 53 H (4-34) U/L Alkaline Phosphatase 60 (38-126) U/L Troponin I (0.000-0.034) ng/mL Total Protein 6.1 L (6.3-8.2) g/dL Albumin 3.7 (3.5-5.0) g/dL 03/05/20 Range/Units 12:05 WBC (3.8-10.6) k/uL RBC (3.80-5.40) m/uL Hgb (11.4-16.0) gm/dL Hct (34.0-46.0) % MCV (80.0-100.0) fL MCH (25.0-35.0) pg MCHC (31.0-37.0) g/dL RDW (11.5-15.5) % Plt Count (150-450) k/uL Neutrophils % % Lymphocytes % % Monocytes % % Eosinophils % % Basophils % % Neutrophils # (1.3-7.7) k/uL Lymphocytes # (1.0-4.8) k/uL Monocytes # (0-1.0) k/uL Eosinophils # (0-0.7) k/uL Basophils # (0-0.2) k/uL PT (9.0-12.0) sec INR (<1.2) APTT (22.0-30.0) sec Sodium (137-145) mmol/L Potassium (3.5-5.1) mmol/L Chloride (98-107) mmol/L Carbon Dioxide (22-30) mmol/L Anion Gap mmol/L BUN (7-17) mg/dL Creatinine (0.52-1.04) mg/dL Est GFR (CKD-EPI)AfAm (>60 ml/min/1.73 sqM) Est GFR (CKD-EPI)NonAf (>60 ml/min/1.73 sqM) Glucose (74-99) mg/dL Calcium (8.4-10.2) mg/dL Magnesium (1.6-2.3) mg/dL Total Bilirubin (0.2-1.3) mg/dL AST (14-36) U/L ALT (4-34) U/L Alkaline Phosphatase (38-126) U/L Troponin I <0.012 (0.000-0.034) ng/mL Total Protein (6.3-8.2) g/dL Albumin (3.5-5.0) g/dL - Radiology Data Radiology results: image reviewed (Chest x-ray shows no acute process) Disposition Clinical Impression: Chest pain Disposition: ADMITTED IP TO THIS HOSP Is patient prescribed a controlled substance at d/c from ED?: No Referrals: Beena Doherty MD [Primary Care Provider] - 1-2 days Decision Time: 13:12
[2020-03-05 12:29] LABS: INR 0.9 (<1.2); Prothrombin Time 9.5 sec (9.0-12.0)
[2020-03-05 12:31] LABS: ALT 53 U/L (4-34); AST 43 U/L (14-36); African American GFR (CKD) >90 (>60 ml/min/1.73 sqM); Albumin 3.7 g/dL (3.5-5.0); Alkaline Phosphatase 60 U/L (38-126); Anion Gap 9 mmol/L; Blood Urea Nitrogen 22 mg/dL (7-17); Calcium 8.7 mg/dL (8.4-10.2); Carbon Dioxide 20 mmol/L (22-30); Chloride 98 mmol/L (98-107); Glucose 133 mg/dL (74-99); Non-African American GFR(CKD) >90 (>60 ml/min/1.73 sqM); Potassium 4.6 mmol/L (3.5-5.1); Sodium 127 mmol/L (137-145); Total Bilirubin 0.3 mg/dL (0.2-1.3); Total Protein 6.1 g/dL (6.3-8.2)
--- NOTE | 2020-03-05 12:35 | XR ---
EXAMINATION TYPE: XR chest 2V DATE OF EXAM: 03/05/2020 CLINICAL HISTORY: Chest pain TECHNIQUE: Frontal and lateral views of the chest are obtained. COMPARISON: CTA chest 02/26/2020 FINDINGS: The cardiomediastinal silhouette is within normal limits for size. Pulmonary vasculature i s normal. There is no focal air space opacity, pleural effusion, or pneumothorax seen. The osseous st ructures are intact. IMPRESSION: No acute cardiopulmonary process.
[2020-03-05 12:36] LABS: Basophils % (A) 0 %; Eosinophils # (A) 0.1 k/uL (0-0.7); Eosinophils % (A) 1 %; HCT 41.9 % (34.0-46.0); HGB 13.4 gm/dL (11.4-16.0); Lymphocytes # (A) 1.8 k/uL (1.0-4.8); Lymphocytes % (A) 20 %; MCH 30.3 pg (25.0-35.0); MCHC 32.1 g/dL (31.0-37.0); MCV 94.4 fL (80.0-100.0); Mean Platelet Volume 7.8; Monocytes # (A) 0.9 k/uL (0-1.0); Monocytes % (A) 9 %; Neutrophils # (A) 6.1 k/uL (1.3-7.7); Neutrophils % (A) 66 %; Platelet Count 211 k/uL (150-450); RBC 4.44 m/uL (3.80-5.40); RDW 12.6 % (11.5-15.5); WBC 9.2 k/uL (3.8-10.6)
[2020-03-05] MEDS ORDERED: NITROGLYCERIN SL TABS 0.4 MG TAB SUBLINGUAL PRN (13:12)
[2020-03-05] MEDS: VENLAFAXINE HCL 50 MG TAB PO SCH (18:33)
[2020-03-05] MEDS: lisinopriL 20 MG TAB PO SCH (18:33)
[2020-03-05] MEDS: NITROGLYCERIN OINT 1 INCH/GM PACKET TOPICAL SCH (18:34)
--- NOTE | 2020-03-05 19:17 | P.HPIM ---
History of Present Illness This is a pleasant 64 years old female with multiple medical problems as below, she was discharged from the hospital 1-2 days ago for hypertensive urgency and discrepancy of blood pressure between the right and left sides, patient e ventually that her blood pressure control on several blood pressure medication and went home with a recommendation for outpatient follow-up, however this morning around 9 8:00 she started developing chest pain, in the middle nonradiating about 4/10 in severity felt like pressure, associated with some dyspnea and dizziness, it lasted for a short time while she feels better. She continued her blood pressure recorded was 79/55 on the right side and 162/66 on the left side. So she decided to come to the hospital Vitals looks stable and her blood pressure currently 157/64 on the left arm. Heart rate is 56. Lactulose including CBC and INR were unremarkable. Sodium is low as 127, liver enzymes mildly elevated with AST 43 and ALT 53. Troponin 3 is less than 0.012. EKG showing sinus bradycardia at [address]-T changes. QTC 451. Chest x-ray: No acute process. In the emergency room she got aspirin and Philippe concerning Review of Systems CONSTITUTIONAL: No fever, no malaise, no fatigue. HEENT: No recent visual problems or hearing problems. Denied any sore throat. CARDIOVASCULAR: No orthopnea, PND, no palpitations, no syncope. PULMONARY: No shortness of breath, no cough, no hemoptysis. GASTROINTESTINAL: No diarrhea, no nausea, no vomiting, no abdominal pain. Normoactive bowel sounds. NEUROLOGICAL: No headaches, no weakness, no numbness. HEMATOLOGICAL: Denies any bleeding or petechiae. GENITOURINARY: Denies any burning micturition, frequency, or urgency. MUSCULOSKELETAL/RHEUMATOLOGICAL: Denies any joint pain, swelling, or any muscle pain. ENDOCRINE: Denies any polyuria or polydipsia. Past Medical History Past Medical History: Hypertension Additional Past Medical History / Comment(s): carotid stenosis History of Any Multi-Drug Resistant Organisms: None Reported Past Surgical History: Tonsillectomy Additional Past Surgical History / Comment(s): abdominal laparotomy, fibroid tumor from uterus, fibroid from L breast Past Anesthesia/Blood Transfusion Reactions: Postoperative Nausea & Vomiting (PONV) Past Psychological History: Anxiety Smoking Status: Former smoker Past Alcohol Use History: Occasional Past Drug Use History: None Reported Medications and Allergies Home Medications Medication Instructions Recorded Confirmed Type Aspirin EC [Ecotrin Low Dose] 81 mg PO DAILY 02/26/20 03/05/20 History Venlafaxine HCl [Effexor] 50 mg PO BID 02/26/20 03/05/20 History Atorvastatin [Lipitor] 80 mg PO DAILY #30 tab 03/02/20 03/05/20 Rx Spironolactone [Aldactone] 25 mg PO DAILY #30 tab 03/02/20 03/05/20 Rx amLODIPine [Norvasc] 5 mg PO BID #60 tab 03/02/20 03/05/20 Rx cloNIDine HCL [Catapres] 0.1 mg PO DAILY #30 tab 03/02/20 03/05/20 Rx hydrALAZINE HCL [Apresoline] 50 mg PO TID #90 tab 03/02/20 03/05/20 Rx hydroCHLOROthiazide [Hydrodiuril] 25 mg PO DAILY #30 tab 03/02/20 03/05/20 Rx lisinopriL [Zestril] 20 mg PO BID #60 tab 03/02/20 03/05/20 Rx carvediloL [Coreg] 3.125 mg PO AC-BID 03/05/20 03/05/20 History Allergies Allergy/AdvReac Type Severity Reaction Status Date / Time losartan [From Justin] Allergy Itching Verified 03/05/20 12:54 Penicillins Allergy Swelling Verified 03/05/20 12:54 Physical Exam Vitals: Vital Signs Temp Pulse Resp BP BP Pulse Ox 03/05/20 15:36 16 03/05/20 15:31 97.4 F L 16 157/64 97 03/05/20 15:28 97.4 F L 16 157/64 97 03/05/20 14:29 97.6 F 56 L 18 146/60 98 03/05/20 11:36 97.7 F 59 L 18 171/63 100 Intake and Output 03/05/20 03/05/20 03/05/20 06:59 14:59 22:59 Other: # Voids 1 Weight 60.781 kg 60.781 kg GENERAL: The patient is alert and oriented x3, not in any acute distress. Well developed, well nourished. HEENT: Pupils are round and equally reacting to light. EOMI. No scleral icterus. No conjunctival pallor. Normocephalic, atraumatic. No pharyngeal erythema. No thyromegaly. CARDIOVASCULAR: S1 and S2 present. No murmurs, rubs, or gallops. PULMONARY: Chest is clear to auscultation, no wheezing or crackles. ABDOMEN: Soft, nontender, nondistended, normoactive bowel sounds. No palpable organomegaly. MUSCULOSKELETAL: No joint swelling or deformity. EXTREMITIES: No cyanosis, clubbing, or pedal edema. NEUROLOGICAL: Gross neurological examination did not reveal any focal deficits. SKIN: No rashes. No petechiae Results CBC & Chem 7: 03/05/20 12:05 03/05/20 12:05 Labs: Abnormal Lab Results - Last 24 Hours (Table) 03/05/20 Range/Units 12:05 Sodium 127 L (137-145) mmol/L Carbon Dioxide 20 L (22-30) mmol/L BUN 22 H (7-17) mg/dL Glucose 133 H (74-99) mg/dL AST 43 H (14-36) U/L ALT 53 H (4-34) U/L Total Protein 6.1 L (6.3-8.2) g/dL Thrombosis Risk Factor Assmnt - Choose All That Apply Each Risk Factor Represents 2 Points: Age 61-74 years, Patient confined to bed Thrombosis Risk Factor Assessment Total Risk Factor Score: 4 Thrombosis Risk Factor Assessment Level: Moderate Risk Assessment and Plan Assessment: Chest pain Hyponatremia Mild gastric pneumonitis Hypertension with unknown discrepancy between the right and left side Recent history of Abdominal aortic narrowing with possible thrombosis , no need for anticoagulation as per vascular surgery Left internal carotid artery stenosis by 80%, no need for surgical intervention by vascular surgery as well Emphysema, not an active issue Plan: This is a pleasant 64 years old female who presents with chest pain and hyponatremia. We'll do serial troponins. Cardiology consult. Continue with aspirin. We will hold hydrochlorothiazide in view of hyponatremia and monitor sodium level. Labs and medication were reviewed.. Continue same treatment. Continue with symptomatic treatment. Resume home medication. Monitor lytes and vitals. DVT and GI prophylaxis. Further recommendations of the clinical course of the patient DVT prophylaxis: Subcutaneous heparin GI Prophylaxis: Pepcid Prognosis is guarded
[2020-03-05] MEDS: amLODIPine 5 MG TAB PO SCH (20:46)
[2020-03-05] MEDS: hydrALAZINE HCL 50 MG TAB PO SCH (22:00)
[2020-03-05] MEDS: LORazepam 0.5 MG TAB PO PRN (22:00)
[2020-03-06] MEDS: NITROGLYCERIN OINT 1 INCH/GM PACKET TOPICAL SCH ×2 (00:48→05:32)
[2020-03-06] MEDS: LORazepam 0.5 MG TAB PO PRN ×2 (04:04→20:25)
[2020-03-06] MEDS: carvediloL 3.125 MG TAB PO SCH ×2 (06:51→17:44)
[2020-03-06 07:19] LABS: ALT 45 U/L (4-34); AST 31 U/L (14-36); African American GFR (CKD) >90 (>60 ml/min/1.73 sqM); Albumin 3.7 g/dL (3.5-5.0); Alkaline Phosphatase 64 U/L (38-126); Anion Gap 9 mmol/L; Bilirubin, Delta 0.2 mg/dL (0.0-0.2); Bilirubin,Unconjugated 0.2 mg/dL (0.0-1.1); Blood Urea Nitrogen 28 mg/dL (7-17); Calcium 8.7 mg/dL (8.4-10.2); Carbon Dioxide 21 mmol/L (22-30); Chloride 100 mmol/L (98-107); Cholesterol 158 mg/dL (<200); Glucose 106 mg/dL (74-99); HDL Cholesterol 45 mg/dL (40-60); LDL Cholesterol,Calculated 98 mg/dL (0-99); Magnesium 2.2 mg/dL (1.6-2.3); Non-African American GFR(CKD) 80 (>60 ml/min/1.73 sqM); Potassium 5.2 mmol/L (3.5-5.1); Sodium 130 mmol/L (137-145); Total Bilirubin 0.4 mg/dL (0.2-1.3); Total Protein 6.1 g/dL (6.3-8.2); Triglycerides 73 mg/dL (<150)
[2020-03-06] MEDS ORDERED: hydroCHLOROthiazide 25 MG TAB PO SCH (09:00)
[2020-03-06] MEDS ORDERED: ASPIRIN 325 MG TAB PO SCH (09:00)
[2020-03-06] MEDS: cloNIDine HCL 0.1 MG TAB PO SCH (09:11)
[2020-03-06] MEDS: ASPIRIN 81 MG PO SCH (09:11)
[2020-03-06] MEDS: ISOSORBIDE MONONITRATE ER 30 MG TAB.ER.24H PO SCH (09:12)
[2020-03-06] MEDS: hydrALAZINE HCL 50 MG TAB PO SCH ×3 (09:12→21:59)
[2020-03-06] MEDS: SPIRONOLACTONE 25 MG TAB PO SCH (09:12)
[2020-03-06] MEDS: lisinopriL 20 MG TAB PO SCH ×2 (09:12→20:26)
[2020-03-06] MEDS: ATORVASTATIN 80 MG TAB PO SCH (09:12)
[2020-03-06] MEDS: VENLAFAXINE HCL 50 MG TAB PO SCH ×2 (09:12→21:59)
--- NOTE | 2020-03-06 10:07 | P.GSCN ---
History of Present Illness Consult date: 03/06/20 History of present illness: Patient is a pleasant 64-year-old female who is known to me for previous right carotid artery stenosis as well as right subclavian stenosis. She was here in the hospital very recently for hypertensive urgency and was discharged with appropriate antihypertensive medications. Yesterday she began developing chest pain with a heavy chest pressure that transitioned upper neck. She felt dizzy and short of breath at the same time. She took her blood pressures which were continued to be significantly different between the left and right extremities and she decided to come to the hospital. Past Medical History Past Medical History: Hypertension Additional Past Medical History / Comment(s): carotid stenosis History of Any Multi-Drug Resistant Organisms: None Reported Past Surgical History: Tonsillectomy Additional Past Surgical History / Comment(s): abdominal laparotomy, fibroid tumor from uterus, fibroid from L breast Past Anesthesia/Blood Transfusion Reactions: Postoperative Nausea & Vomiting (PONV) Past Psychological History: Anxiety Smoking Status: Former smoker Past Alcohol Use History: Occasional Past Drug Use History: None Reported Medications and Allergies Home Medications Medication Instructions Recorded Confirmed Type Aspirin EC [Ecotrin Low Dose] 81 mg PO DAILY 02/26/20 03/05/20 History Venlafaxine HCl [Effexor] 50 mg PO BID 02/26/20 03/05/20 History Atorvastatin [Lipitor] 80 mg PO DAILY #30 tab 03/02/20 03/05/20 Rx Spironolactone [Aldactone] 25 mg PO DAILY #30 tab 03/02/20 03/05/20 Rx amLODIPine [Norvasc] 5 mg PO BID #60 tab 03/02/20 03/05/20 Rx cloNIDine HCL [Catapres] 0.1 mg PO DAILY #30 tab 03/02/20 03/05/20 Rx hydrALAZINE HCL [Apresoline] 50 mg PO TID #90 tab 03/02/20 03/05/20 Rx hydroCHLOROthiazide [Hydrodiuril] 25 mg PO DAILY #30 tab 03/02/20 03/05/20 Rx lisinopriL [Zestril] 20 mg PO BID #60 tab 03/02/20 03/05/20 Rx carvediloL [Coreg] 3.125 mg PO AC-BID 03/05/20 03/05/20 History Allergies Allergy/AdvReac Type Severity Reaction Status Date / Time losartan [From Cozaar] Allergy Itching Verified 03/05/20 12:54 Penicillins Allergy Swelling Verified 03/05/20 12:54 Surgical - Exam Vital Signs Temp Pulse Resp BP Pulse Ox 97.7 F 59 L 18 171/63 100 03/05/20 11:36 03/05/20 11:36 03/05/20 11:36 03/05/20 11:36 03/05/20 11:36 Gen. a pleasant cooperative female in no acute distress. On oxygen. HEENT is normocephalic, atraumatic, extraocular motion intact. Heart is regular in rate and rhythm at this time. Lungs are clear bilaterally. Abdomen soft, nontender nondistended. She has trouble radial pulses, decreased on the right. Palpable femoral pulses bilaterally. Bilateral lower extremities are warm and dry. Normal mood and affect. Cranial nerves II through XII grossly intact Results - Labs 03/05/20 12:05 03/06/20 06:19 Abnormal Lab Results - Last 24 Hours (Table) 03/05/20 03/06/20 Range/Units 12:05 06:19 Sodium 127 L 130 L (137-145) mmol/L Potassium 5.2 H (3.5-5.1) mmol/L Carbon Dioxide 20 L 21 L (22-30) mmol/L BUN 22 H 28 H (7-17) mg/dL Glucose 133 H 106 H (74-99) mg/dL AST 43 H (14-36) U/L ALT 53 H 45 H (4-34) U/L Total Protein 6.1 L 6.1 L (6.3-8.2) g/dL Diabetes panel 03/05/20 03/06/20 Range/Units 12:05 06:19 Sodium 127 L 130 L (137-145) mmol/L Potassium 4.6 5.2 H (3.5-5.1) mmol/L Chloride 98 100 (98-107) mmol/L Carbon Dioxide 20 L 21 L (22-30) mmol/L BUN 22 H 28 H (7-17) mg/dL Creatinine 0.63 0.79 (0.52-1.04) mg/dL Glucose 133 H 106 H (74-99) mg/dL Calcium 8.7 8.7 (8.4-10.2) mg/dL AST 43 H 31 (14-36) U/L ALT 53 H 45 H (4-34) U/L Alkaline Phosphatase 60 64 (38-126) U/L Total Protein 6.1 L 6.1 L (6.3-8.2) g/dL Albumin 3.7 3.7 (3.5-5.0) g/dL Triglycerides 73 (<150) mg/dL HDL Cholesterol 45 (40-60) mg/dL Calcium panel 03/05/20 03/06/20 Range/Units 12:05 06:19 Calcium 8.7 8.7 (8.4-10.2) mg/dL Albumin 3.7 3.7 (3.5-5.0) g/dL Pituitary panel 03/05/20 03/06/20 Range/Units 12:05 06:19 Sodium 127 L 130 L (137-145) mmol/L Potassium 4.6 5.2 H (3.5-5.1) mmol/L Chloride 98 100 (98-107) mmol/L Carbon Dioxide 20 L 21 L (22-30) mmol/L BUN 22 H 28 H (7-17) mg/dL Creatinine 0.63 0.79 (0.52-1.04) mg/dL Glucose 133 H 106 H (74-99) mg/dL Calcium 8.7 8.7 (8.4-10.2) mg/dL Adrenal panel 03/05/20 03/06/20 Range/Units 12:05 06:19 Sodium 127 L 130 L (137-145) mmol/L Potassium 4.6 5.2 H (3.5-5.1) mmol/L Chloride 98 100 (98-107) mmol/L Carbon Dioxide 20 L 21 L (22-30) mmol/L BUN 22 H 28 H (7-17) mg/dL Creatinine 0.63 0.79 (0.52-1.04) mg/dL Glucose 133 H 106 H (74-99) mg/dL Calcium 8.7 8.7 (8.4-10.2) mg/dL Total Bilirubin 0.3 0.4 (0.2-1.3) mg/dL AST 43 H 31 (14-36) U/L ALT 53 H 45 H (4-34) U/L Alkaline Phosphatase 60 64 (38-126) U/L Total Protein 6.1 L 6.1 L (6.3-8.2) g/dL Albumin 3.7 3.7 (3.5-5.0) g/dL Assessment and Plan Assessment: #1 left internal carotid artery stenosis, asymptomatic, 80% #2 right asymptomatic subclavian stenosis #3 chest pain #4 recent hypertensive emergency with initiation of new antihypertensive medications #4 tobacco abuse Plan: At this point she remains a systematic from her subclavian artery stenosis as well as her carotid artery stenosis. Appreciate cardiology recommendations and input. Continue to monitor. Will plan for outpatient scheduling for carotid endarterectomy as well as possible subclavian angioplasty and stent
--- NOTE | 2020-03-06 12:52 | P.PN ---
Subjective This is a pleasant 64 years old female with multiple medical problems as below, she was discharged from the hospital 1-2 days ago for hypertensive urgency and discrepancy of blood pressure between the right and left sides, patient eventually that her blood pressure control on several blood pressure medication and went home with a recommendation for outpatient follow-up, however this morning around 9 8:00 she started developing chest pain, in the middle nonradiating about 4/10 in severity felt like pressure, associated with some dyspnea and dizziness, it lasted for a short time while she feels better. She continued her blood pressure recorded was 79/55 on the right side and 162/66 on the left side. So she decided to come to the hospital Vitals looks stable and her blood pressure currently 157/64 on the left arm. Heart rate is 56. Lactulose including CBC and INR were unremarkable. Sodium is low as 127, liver enzymes mildly elevated with AST 43 and ALT 53. Troponin 3 is less than 0.012. EKG showing sinus bradycardia at [address]-T changes. QTC 451. Chest x-ray: No acute process. In the emergency room she got aspirin and Philippe concerning 03/06/2020 Patient is awake, lying comfortable in bed, she still have some chest pain but this improved with nitro but no dyspnea, however whenever she gets up she got dizzy. Blood pressure on the left side is 126/59 and on the right side 69/48. Heart rate is 74. Sodium is improved to 1:30, potassium 5.2, creatinine is normal 0.7. Liver enzymes trending down. Dr. Short evaluated the patient and recommended outpatient carotid endarterectomy and possible subclavian angioplasty and stent Cardiology team on the case. We will check orthostasis. She remains on aspirin and other antihypertensive medication, hydrochlorothiazide was held due to hyponatremia Review of Systems CONSTITUTIONAL: No fever, no malaise, no fatigue. HEENT: No recent visual problems or hearing problems. Denied any sore throat. CARDIOVASCULAR: No orthopnea, PND, no palpitations, no syncope. PULMONARY: No shortness of breath, no cough, no hemoptysis. GASTROINTESTINAL: No diarrhea, no nausea, no vomiting, no abdominal pain. Normoactive bowel sounds. NEUROLOGICAL: No headaches, no weakness, no numbness. HEMATOLOGICAL: Denies any bleeding or petechiae. GENITOURINARY: Denies any burning micturition, frequency, or urgency. MUSCULOSKELETAL/RHEUMATOLOGICAL: Denies any joint pain, swelling, or any muscle pain. ENDOCRINE: Denies any polyuria or polydipsia. Active Medications Generic Name Dose Route Start Last Admin Trade Name Freq PRN Reason Stop Dose Admin Amlodipine Besylate 5 mg 03/05/20 21:00 03/05/20 20:46 Norvasc PO 5 mg BID CASTRO Administration Aspirin 81 mg 03/06/20 09:00 03/06/20 09:11 Aspirin PO 81 mg DAILY CASTRO Administration Atorvastatin Calcium 80 mg 03/06/20 09:00 03/06/20 09:12 Lipitor PO 80 mg DAILY CASTRO Administration Carvedilol 3.125 mg 03/06/20 07:30 03/06/20 06:51 Coreg PO 3.125 mg AC-BID CASTRO Administration Clonidine 0.1 mg 03/06/20 09:00 03/06/20 09:11 Catapres PO 0.1 mg DAILY CASTRO Administration Hydralazine HCl 50 mg 03/05/20 22:00 03/06/20 09:12 Apresoline PO 50 mg TID CASTRO Administration Hydrochlorothiazide 25 mg 03/06/20 09:00 03/06/20 09:12 Hydrodiuril PO 25 mg DAILY CASTRO Administration Isosorbide Mononitrate 30 mg 03/06/20 09:00 03/06/20 09:12 Imdur PO 30 mg DAILY CASTRO Administration Lisinopril 20 mg 03/05/20 21:00 03/06/20 09:12 Zestril PO 20 mg BID CASTRO Administration Lorazepam 0.5 mg 03/05/20 22:00 03/06/20 04:04 Ativan PO 0.5 mg Q6H PRN Administration Anxiety Nitroglycerin 0.4 mg 03/05/20 13:12 Nitrostat SUBLINGUAL Q5M PRN Chest Pain Spironolactone 25 mg 03/06/20 09:00 03/06/20 09:12 Aldactone PO 25 mg DAILY CASTRO Administration Venlafaxine HCl 50 mg 03/05/20 21:00 03/06/20 09:12 Effexor PO 50 mg BID CASTRO Administration Objective - Vital Signs Vital signs: Vital Signs Temp 98 F 03/06/20 08:37 Pulse 74 03/06/20 08:37 Resp 16 03/06/20 08:37 BP 126/59 03/06/20 08:37 Pulse Ox 98 03/06/20 08:37 Intake & Output 03/05/20 03/06/20 03/06/20 18:59 06:59 18:59 Intake Total 200 Output Total 600 Balance -400 Weight 60.781 kg Intake: Oral 200 Output: Urine 600 Other: Voiding Method Bedpan Bedpan # Voids 1 0 - Exam GENERAL: The patient is alert and oriented x3, not in any acute distress. Well developed, well nourished. HEENT: Pupils are round and equally reacting to light. EOMI. No scleral icterus. No conjunctival pallor. Normocephalic, atraumatic. No pharyngeal erythema. No thyromegaly. CARDIOVASCULAR: S1 and S2 present. No murmurs, rubs, or gallops. PULMONARY: Chest is clear to auscultation, no wheezing or crackles. ABDOMEN: Soft, nontender, nondistended, normoactive bowel sounds. No palpable organomegaly. MUSCULOSKELETAL: No joint swelling or deformity. EXTREMITIES: No cyanosis, clubbing, or pedal edema. NEUROLOGICAL: Gross neurological examination did not reveal any focal deficits. SKIN: No rashes. no petechiae. - Labs CBC & Chem 7: 03/05/20 12:05 03/06/20 06:19 Labs: Abnormal Lab Results - Last 24 Hours (Table) 03/06/20 Range/Units 06:19 Sodium 130 L (137-145) mmol/L Potassium 5.2 H (3.5-5.1) mmol/L Carbon Dioxide 21 L (22-30) mmol/L BUN 28 H (7-17) mg/dL Glucose 106 H (74-99) mg/dL ALT 45 H (4-34) U/L Total Protein 6.1 L (6.3-8.2) g/dL Assessment and Plan Assessment: Chest pain Hyponatremia Mild transaminitis, improving Hypertension with unknown discrepancy between the right and left side Recent history of Abdominal aortic narrowing with possible thrombosis , no need for anticoagulation as per vascular surgery Left internal carotid artery stenosis by 80%, no need for surgical intervention by vascular surgery as well Emphysema, not an active issue Plan: This is a pleasant 64 years old female who presents with chest pain and hyponatremia. We'll do serial troponins. Cardiology consult. Continue with aspirin. We will hold hydrochlorothiazide in view of hyponatremia and monitor sodium level. Dr. Short evaluated the patient and recommended outpatient carotid end arterectomy and possible subclavian angioplasty and stent Labs and medication were reviewed.. Continue same treatment. Continue with symptomatic treatment. Resume home medication. Monitor lytes and vitals. DVT and GI prophylaxis. Further recommendations of the clinical course of the patient DVT prophylaxis: Subcutaneous heparin GI Prophylaxis: Pepcid Prognosis is guarded
[2020-03-06] MEDS ORDERED: SODIUM CHLORIDE 0.9% 1,000 ML IV SCH (14:30)
[2020-03-06] MEDS: amLODIPine 5 MG TAB PO SCH ×2 (14:35→20:26)
--- NOTE | 2020-03-06 15:00 | P.CRDCN ---
History of Present Illness Consult date: 03/06/20 Requesting physician: Marshall Morse Consult reason: chest pain Chief complaint: chest pain History of present illness: History of present illness: This is a 64-year-old female with past medical history of hypertension, hyperlipidemia, remote history of tobacco use, history of vascular disease with carotid artery disease, COPD. She had a recent hospitalization beginning of February for hypertensive emergency with subclavian stenosis and was seen by cardiology at that time. She was also found to have a left internal carotid artery stenosis of 80% and abdominal aortic narrowing with possible thrombosis followed by vascular surgery. Patient was started on multiple antihypertensives and was discharged home at that time in stable condition. Patient now presents with chest pain which she describes as a pressure across her chest and into her left shoulder then it works up into her neck and her head and at times feels like she is "going to explode." Since she left the hospital on March 02, she has been most of her time sitting on the couch. She has pressure type sensation and feels that her blood pressures are fluctuating. She also states she has a sensation that she calls a cortisol surge like a fight or flight response. She has been able to walk to the kitchen to get a cup of tea but no significant activity at home. Yesterday she found that her blood pressures were high and she utilizes her left arm for pressures due to fluctuation in blood pressure between sides. Pain also in the left shoulder. Patient came into [facility] emergency center for evaluation. CBC was unremarkable. Initial sodium 127 with repeat at 130, potassium 5.2, CO2 21, BUN 20 and creatinine 0.79. Liver function tests normal. Triglycerides 73, cholesterol 158, LDL 98, HDL 45. Echocardiogram on last admission showed mild concentric left ventricular hypertrophy, an EF of 55-60%, mild mitral regurgitation, mild tricuspid regurgitation. Patient received Nitropaste in the emergency center which she states did ease her pressure sensation as well as oxygen seemed to help. Her attending physician has started her on Imdur 30 mg daily. She states when she gets a sensation she also has a feeling of anxiety. She was started on Ativan last evening which also helped. Orthostatics are positive. Review Of Systems: Constitutional: No fever, no chills. Reports fatigue. EENT: Reports headache. No dizziness. Lungs: No shortness of breath, cough, no sputum production. No wheezing. Cardiovascular: Reports chest pain, no lower extremity edema. No palpitations. No paroxysmal nocturnal dyspnea. No orthopnea. Reports lightheadedness or dizziness. No syncopal episodes. Abdominal: No abdominal pain. No nausea, vomiting. No diarrhea. No constipation. No bloody or tarry stools.. No loss of appetite. Genitourinary: No dysuria, increased frequency, urgency. No urinary retention. Musculoskeletal: No myalgias. No muscle weakness, no gait dysfunction, no frequent falls. No back pain. No neck pain. Integumentary: No wounds, no lesions. No rash or pruritus. No unusual bruising. Neurologic: No aphasia. No facial droop. No change in mentation. No head injury. No headache. No paralysis. No paresthesia. Psychiatric: No depression. No anxiety. Endocrine: No abnormal blood sugars. Physical examination: Gen: This is a 64-year-old female. She is resting in bed and rest appears to be in no acute distress. The patient sits up, she starts feeling of pressure in her chest neck and head. VS: Afebrile, heart rate 74, blood pressure 126/59 and the left arm and right arm 69/48. Pulse ox 90% on 3 L nasal cannula. HEENT: Head is atraumatic, normocephalic. Pupils equal, round. Sclerae is anicteric. NECK: Supple. No JVD. No lymphadenopathy. No thyromegaly. LUNGS: Clear to auscultation. No wheezes or rhonchi. No intercostal retraction s. HEART: Regular rate and rhythm. Systolic ejection murmur. ABDOMEN: Soft. Bowel sounds are present. No masses. No tenderness. EXTREMITIES: No pedal edema. No calf tenderness. NEUROLOGICAL: Patient is awake, alert and oriented x3. Cranial nerves 2 through 12 are grossly intact. Assessment: Chest pain Left internal carotid artery stenosis at 80% Right subclavian stenosis Recent hypertensive emergency Plan: No need to repeat echocardiogram Discontinue hydrochlorothiazide Continue other antihypertensives Okay to continue Imdur 30 mg daily Further recommendations to follow based on clinical course Patient will have follow-up with Dr. Matos in the outpatient setting Thank you kindly for this consultation Nurse practitioner note has been reviewed, I agree with documented findings and plan of care. Patient was seen and examined. Past Medical History Past Medical History: Hypertension Additional Past Medical History / Comment(s): carotid stenosis History of Any Multi-Drug Resistant Organisms: None Reported Past Surgical History: Tonsillectomy Additional Past Surgical History / Comment(s): abdominal laparotomy, fibroid tumor from uterus, fibroid from L breast Past Anesthesia/Blood Transfusion Reactions: Postoperative Nausea & Vomiting (PONV) Past Psychological History: Anxiety Smoking Status: Former smoker Past Alcohol Use History: Occasional Past Drug Use History: None Reported Medications and Allergies Home Medications Medication Instructions Recorded Confirmed Type Aspirin EC [Ecotrin Low Dose] 81 mg PO DAILY 02/26/20 03/05/20 History Venlafaxine HCl [Effexor] 50 mg PO BID 02/26/20 03/05/20 History Atorvastatin [Lipitor] 80 mg PO DAILY #30 tab 03/02/20 03/05/20 Rx Spironolactone [Aldactone] 25 mg PO DAILY #30 tab 03/02/20 03/05/20 Rx amLODIPine [Norvasc] 5 mg PO BID #60 tab 03/02/20 03/05/20 Rx cloNIDine HCL [Catapres] 0.1 mg PO DAILY #30 tab 03/02/20 03/05/20 Rx hydrALAZINE HCL [Apresoline] 50 mg PO TID #90 tab 03/02/20 03/05/20 Rx hydroCHLOROthiazide [Hydrodiuril] 25 mg PO DAILY #30 tab 03/02/20 03/05/20 Rx lisinopriL [Zestril] 20 mg PO BID #60 tab 03/02/20 03/05/20 Rx carvediloL [Coreg] 3.125 mg PO AC-BID 03/05/20 03/05/20 History Allergies Allergy/AdvReac Type Severity Reaction Status Date / Time losartan [From Cozaar] Allergy Itching Verified 03/05/20 12:54 Penicillins Allergy Swelling Verified 03/05/20 12:54 Physical Exam Vitals: Vital Signs Temp Pulse Pulse Resp BP BP BP 03/06/20 08:37 98 F 74 16 126/59 69/48 03/06/20 03:00 97.7 F 69 16 124/64 03/05/20 19:59 97.7 F 146/56 03/05/20 15:36 16 03/05/20 15:31 97.4 F L 16 157/64 03/05/20 15:28 97.4 F L 16 157/64 03/05/20 14:29 97.6 F 56 L 18 146/60 Pulse Ox 03/06/20 08:37 98 03/06/20 03:00 99 03/05/20 19:59 98 03/05/20 15:36 03/05/20 15:31 97 03/05/20 15:28 97 03/05/20 14:29 98 Intake and Output 03/05/20 03/06/20 03/06/20 22:59 06:59 14:59 Intake Total 200 0 Output Total 300 300 Balance -100 -300 Intake: Oral 200 0 Output: Urine 300 300 Other: Voiding Method Bedpan Bedpan Bedpan # Voids 1 0 Weight 60.781 kg Results 03/05/20 12:05 03/06/20 06:19 Cardiac Enzymes 03/05/20 03/05/20 03/05/20 Range/Units 12:05 12:05 15:23 AST 43 H (14-36) U/L Troponin I <0.012 <0.012 (0.000-0.034) ng/mL 03/05/20 03/06/20 Range/Units 18:07 06:19 AST 31 (14-36) U/L Troponin I <0.012 (0.000-0.034) ng/mL Coagulation 03/05/20 Range/Units 12:05 PT 9.5 (9.0-12.0) sec APTT 25.0 (22.0-30.0) sec Lipids 03/06/20 Range/Units 06:19 Triglycerides 73 (<150) mg/dL Cholesterol 158 (<200) mg/dL HDL Cholesterol 45 (40-60) mg/dL CBC 03/05/20 Range/Units 12:05 WBC 9.2 (3.8-10.6) k/uL RBC 4.44 (3.80-5.40) m/uL Hgb 13.4 (11.4-16.0) gm/dL Hct 41.9 (34.0-46.0) % Plt Count 211 (150-450) k/uL Comprehensive Metabolic Panel 03/05/20 03/06/20 Range/Units 12:05 06:19 Sodium 127 L 130 L (137-145) mmol/L Potassium 4.6 5.2 H (3.5-5.1) mmol/L Chloride 98 100 (98-107) mmol/L Carbon Dioxide 20 L 21 L (22-30) mmol/L BUN 22 H 28 H (7-17) mg/dL Creatinine 0.63 0.79 (0.52-1.04) mg/dL Glucose 133 H 106 H (74-99) mg/dL Calcium 8.7 8.7 (8.4-10.2) mg/dL Unconjugated Bilirubin 0.2 (0.0-1.1) mg/dL AST 43 H 31 (14-36) U/L ALT 53 H 45 H (4-34) U/L Alkaline Phosphatase 60 64 (38-126) U/L Total Protein 6.1 L 6.1 L (6.3-8.2) g/dL Albumin 3.7 3.7 (3.5-5.0) g/dL Current Medications Generic Name Dose Route Start Last Admin Trade Name Freq PRN Reason Stop Dose Admin Amlodipine Besylate 5 mg 03/05/20 21:00 03/05/20 20:46 Norvasc PO 5 mg BID CASTRO Administration Aspirin 81 mg 03/06/20 09:00 03/06/20 09:11 Aspirin PO 81 mg DAILY CASTRO Administration Atorvastatin Calcium 80 mg 03/06/20 09:00 03/06/20 09:12 Lipitor PO 80 mg DAILY CASTRO Administration Carvedilol 3.125 mg 03/06/20 07:30 03/06/20 06:51 Coreg PO 3.125 mg AC-BID CASTRO Administration Clonidine 0.1 mg 03/06/20 09:00 03/06/20 09:11 Catapres PO 0.1 mg DAILY CASTRO Administration Hydralazine HCl 50 mg 03/05/20 22:00 03/06/20 09:12 Apresoline PO 50 mg TID CASTRO Administration Hydrochlorothiazide 25 mg 03/06/20 09:00 03/06/20 09:12 Hydrodiuril PO 25 mg DAILY CASTRO Administration Isosorbide Mononitrate 30 mg 03/06/20 09:00 03/06/20 09:12 Imdur PO 30 mg DAILY CASTRO Administration Lisinopril 20 mg 03/05/20 21:00 03/06/20 09:12 Zestril PO 20 mg BID CASTRO Administration Lorazepam 0.5 mg 03/05/20 22:00 03/06/20 04:04 Ativan PO 0.5 mg Q6H PRN Administration Anxiety Nitroglycerin 0.4 mg 03/05/20 13:12 Nitrostat SUBLINGUAL Q5M PRN Chest Pain Spironolactone 25 mg 03/06/20 09:00 03/06/20 09:12 Aldactone PO 25 mg DAILY CASTRO Administration Venlafaxine HCl 50 mg 03/05/20 21:00 03/06/20 09:12 Effexor PO 50 mg BID CASTRO Administration Intake and Output 03/05/20 03/06/20 03/06/20 22:59 06:59 14:59 Intake Total 200 0 Output Total 300 300 Balance -100 -300 Intake: Oral 200 0 Output: Urine 300 300 Other: Voiding Method Bedpan Bedpan Bedpan # Voids 1 0 Weight 60.781 kg 03/05/20 12:05 03/06/20 06:19
[2020-03-07] MEDS: carvediloL 3.125 MG TAB PO SCH ×2 (06:35→16:30)
[2020-03-07 07:21] LABS: Albumin 3.4 g/dL (3.5-5.0); Bilirubin, Delta 0.2 mg/dL (0.0-0.2); Bilirubin,Unconjugated 0.3 mg/dL (0.0-1.1); Calcium 8.4 mg/dL (8.4-10.2); Magnesium 2.2 mg/dL (1.6-2.3); Potassium 5.3 mmol/L (3.5-5.1); Total Bilirubin 0.5 mg/dL (0.2-1.3); Total Protein 5.8 g/dL (6.3-8.2)
[2020-03-07] MEDS: ASPIRIN 81 MG PO SCH (08:20)
[2020-03-07] MEDS: lisinopriL 20 MG TAB PO SCH ×2 (08:20→21:19)
[2020-03-07] MEDS: ATORVASTATIN 80 MG TAB PO SCH (08:20)
[2020-03-07] MEDS: amLODIPine 5 MG TAB PO SCH ×2 (08:20→21:19)
[2020-03-07] MEDS: ISOSORBIDE MONONITRATE ER 30 MG TAB.ER.24H PO SCH (08:21)
[2020-03-07] MEDS: cloNIDine HCL 0.1 MG TAB PO SCH (08:21)
[2020-03-07] MEDS: hydrALAZINE HCL 50 MG TAB PO SCH ×3 (08:21→21:19)
[2020-03-07] MEDS: SPIRONOLACTONE 25 MG TAB PO SCH (08:22)
[2020-03-07] MEDS: VENLAFAXINE HCL 50 MG TAB PO SCH ×2 (08:22→21:20)
--- NOTE | 2020-03-07 10:29 | P.PN ---
Subjective This is a pleasant 64 years old female with multiple medical problems as below, she was discharged from the hospital 1-2 days ago for hypertensive urgency and discrepancy of blood pressure between the right and left sides, patient eventually that her blood pressure control on several blood pressure medication and went home with a recommendation for outpatient follow-up, however this morning around 9 8:00 she started developing chest pain, in the middle nonradiating about 4/10 in severity felt like pressure, associated with some dyspnea and dizziness, it lasted for a short time while she feels better. She continued her blood pressure recorded was 79/55 on the right side and 162/66 on the left side. So she decided to come to the hospital Vitals looks stable and her blood pressure currently 157/64 on the left arm. Heart rate is 56. Lactulose including CBC and INR were unremarkable. Sodium is low as 127, liver enzymes mildly elevated with AST 43 and ALT 53. Troponin 3 is less than 0.012. EKG showing sinus bradycardia at [address]-T changes. QTC 451. Chest x-ray: No acute process. In the emergency room she got aspirin and Philippe concerning 03/06/2020 Patient is awake, lying comfortable in bed, she still have some chest pain but this improved with nitro but no dyspnea, however whenever she gets up she got dizzy. Blood pressure on the left side is 126/59 and on the right side 69/48. Heart rate is 74. Sodium is improved to 1:30, potassium 5.2, creatinine is normal 0.7. Liver enzymes trending down. Dr. Short evaluated the patient and recommended outpatient carotid endarterectomy and possible subclavian angioplasty and stent Cardiology team on the case. We will check orthostasis. She remains on aspirin and other antihypertensive medication, hydrochlorothiazide was held due to hyponatremia 03/07/2020 Patient postural dizziness is significantly improved however not completely resolved, she got almost 3 packs of normal saline at 100 mL/h, or lower the rate to 75 mL/h, hydrochlorothiazide was stopped and Imdur was started. Patient chest pain is improved and patient is followed closely by rolling machine operator automatic team. Patient to continue on Coreg, clonidine, hydralazine, lisinopril, and Aldactone. Objective - Vital Signs Vital signs: Vital Signs Temp 97.8 F 03/07/20 08:47 Pulse 68 03/07/20 08:48 Resp 16 08/23/20 08:48 BP 145/52 03/07/20 08:47 Pulse Ox 97 03/07/20 08:47 Intake & Output 03/06/20 03/07/20 03/07/20 18:59 06:59 18:59 Intake Total 0 240 200 Output Total 350 350 Balance 0 -110 -150 Intake: Oral 0 240 200 Output: Urine 350 350 Other: Voiding Method Bedside Commode Bedside Commode Bedside Commode # Voids 1 1 1 - Exam GENERAL: The patient is alert and oriented x3, not in any acute distress. Well developed, well nourished. HEENT: Pupils are round and equally reacting to light. EOMI. No scleral icterus. No conjunctival pallor. Normocephalic, atraumatic. No pharyngeal erythema. No thyromegaly. CARDIOVASCULAR: S1 and S2 present. No murmurs, rubs, or gallops. PULMONARY: Chest is clear to auscultation, no wheezing or crackles. ABDOMEN: Soft, nontender, nondistended, normoactive bowel sounds. No palpable o rganomegaly. MUSCULOSKELETAL: No joint swelling or deformity. EXTREMITIES: No cyanosis, clubbing, or pedal edema. NEUROLOGICAL: Gross neurological examination did not reveal any focal deficits. SKIN: No rashes. no petechiae. - Labs CBC & Chem 7: 03/05/20 12:05 03/07/20 06:34 Labs: Abnormal Lab Results - Last 24 Hours (Table) 03/07/20 Range/Units 06:34 Sodium 132 L (137-145) mmol/L Potassium 5.3 H (3.5-5.1) mmol/L Carbon Dioxide 19 L (22-30) mmol/L BUN 31 H (7-17) mg/dL ALT 35 H (4-34) U/L Total Protein 5.8 L (6.3-8.2) g/dL Albumin 3.4 L (3.5-5.0) g/dL Assessment and Plan Assessment: Chest pain Orthostatic hypotension, stop hydrochlorothiazide and improved with IV fluids Hyponatremia, hypovolemic Mild transaminitis, improving Hypertension with unknown discrepancy between the right and left side Recent history of Abdominal aortic narrowing with possible thrombosis , no need for anticoagulation as per vascular surgery Left internal carotid artery stenosis by 80%, no need for surgical intervention by vascular surgery as well Emphysema, not an active issue Plan: This is a pleasant 64 years old female who presents with chest pain and hyponatremia. We'll do serial troponins. Cardiology consult. Continue with aspirin. We will hold hydrochlorothiazide in view of hyponatremia and monitor sodium level. Continue with gentle hydration Dr. Short evaluated the patient and recommended outpatient carotid endarterectomy and possible subclavian angioplasty and stent Labs and medication were reviewed.. Continue same treatment. Continue with symptomatic treatment. Resume home medication. Monitor lytes and vitals. DVT and GI prophylaxis. Further recommendations of the clinical course of the patient DVT prophylaxis: Subcutaneous heparin GI Prophylaxis: Pepcid Prognosis is guarded
--- NOTE | 2020-03-07 12:08 | P.PN ---
Subjective Progress Note Date: 03/07/20 Principal diagnosis: Hypertension, subclavian stenosis History of present illness: This is a 64-year-old female with past medical history of hypertension, hyperlipidemia, remote history of tobacco use, history of vascular disease with carotid artery disease, COPD. She had a recent hospitalization beginning of February for hypertensive emergency with subclavian stenosis and was seen by cardiology at that time. She was also found to have a left internal carotid artery stenosis of 80% and abdominal aortic narrowing with possible thrombosis followed by vascular surgery. Patient was started on multiple antihypertensives and was discharged home at that time in stable condition. Patient now presents with chest pain which she describes as a pressure across her chest and into her left shoulder then it works up into her neck and her head and at times feels like she is "going to explode." Since she left the hospital on March 02, she has been most of her time sitting on the couch. She has pressure type sensation and feels that her blood pressures are fluctuating. She also states she has a sensation that she calls a cortisol surge like a fight or flight response. She has been able to walk to the kitchen to get a cup of tea but no significant activity at home. Yesterday she found that her blood pressures were high and she utilizes her left arm for pressures due to fluctuation in blood pressure between sides. Pain also in the left shoulder. Patient came into [facility] emergency center for evaluation. CBC was unremarkable. Initial sodium 127 with repeat at 130, potassium 5.2, CO2 21, BUN 20 and creatinine 0.79. Liver function tests normal. Triglycerides 73, cholesterol 158, LDL 98, HDL 45. Echocardiogram on last admission showed mild concentric left ventricular hypertrophy, an EF of 55-60%, mild mitral regurgitation, mild tricuspid regurgitation. Patient received Nitropaste in the emergency center which she states did ease her pressure sensation as well as oxygen seemed to help. Her attending physician has started her on Imdur 30 mg daily. She states when she gets a sensation she also has a feeling of anxiety. She was started on Ativan last evening which also helped. Orthostatics are positive. 03/07/2020 Patient seen and examined. Patient is at least sitting up in bed and admits she feels somewhat improved in terms of her lightheadedness. She still does get lightheaded when she walks to the bathroom. She does still have some chest pain when she gets up and does something. Overall blood pressures about in the 130s and 140s. Hydrochlorothiazide was discontinued yesterday and patient was started on IV fluids and she seems to be somewhat improved. Review Of Systems: Constitutional: No fever, no chills. Reports fatigue. EENT: Reports headache. No dizziness. Lungs: No shortness of breath, cough, no sputum production. No wheezing. Cardiovascular: Reports chest pain, no lower extremity edema. No palpitations. No paroxysmal nocturnal dyspnea. No orthopnea. Reports lightheadedness or dizziness. No syncopal episodes. Abdominal: No abdominal pain. No nausea, vomiting. No diarrhea. No c onstipation. No bloody or tarry stools.. No loss of appetite. Genitourinary: No dysuria, increased frequency, urgency. No urinary retention. Musculoskeletal: No myalgias. No muscle weakness, no gait dysfunction, no frequent falls. No back pain. No neck pain. Integumentary: No wounds, no lesions. No rash or pruritus. No unusual bruising. Neurologic: No aphasia. No facial droop. No change in mentation. No head injury. No headache. No paralysis. No paresthesia. Psychiatric: No depression. No anxiety. Endocrine: No abnormal blood sugars. Physical examination: Gen: This is a 64-year-old female. She is resting in bed and rest appears to be in no acute distress. The patient sits up, she starts feeling of pressure in her chest neck and head. VS: Vital signs reviewed HEENT: Head is atraumatic, normocephalic. Pupils equal, round. Sclerae is anicteric. NECK: Supple. No JVD. No lymphadenopathy. No thyromegaly. LUNGS: Clear to auscultation. No wheezes or rhonchi. No intercostal retractions. HEART: Regular rate and rhythm. Systolic ejection murmur. ABDOMEN: Soft. Bowel sounds are present. No masses. No tenderness. EXTREMITIES: No pedal edema. No calf tenderness. NEUROLOGICAL: Patient is awake, alert and oriented x3. Cranial nerves 2 through 12 are grossly intact. Assessment: Chest pain which is somewhat associated with exertion and being lightheaded. Troponins negative Left internal carotid artery stenosis at 80% Right subclavian stenosis Recent hypertensive emergency Lightheadedness, likely related to decreasing blood pressure too much for her. She does have left internal carotid disease as well as right subclavian and therefore she may need a higher blood pressure to perfuse her brain adequately. Plan: Hydrochlorothiazide was discontinued yesterday and patient was started on IV fluids with some improvement. Continue other antihypertensives Okay to continue Imdur 30 mg daily Patient still symptomatic on standing. She does have both left and right-sided disease with a left internal carotid artery stenosis and a right subclavian stenosis and therefore would recommend permissive hypertension until these are fixed. I will discontinue her clonidine today and monitor response. Patient with somewhat atypical chest pain however patient with many risk factors and that peripheral arterial disease. We will check a nuclear MPI tomorrow to further assess. Objective - Vital Signs Vital signs: Vital Signs Temp 97.8 F 03/07/20 08:47 Pulse 68 03/07/20 08:48 Resp 16 03/07/20 08:48 BP 145/52 03/07/20 08:47 Pulse Ox 97 03/07/20 08:47 Intake & Output 03/06/20 03/07/20 03/07/20 18:59 06:59 18:59 Intake Total 0 240 200 Output Total 350 350 Balance 0 -110 -150 Intake: Oral 0 240 200 Output: Urine 350 350 Other: Voiding Method Bedside Commode Bedside Commode Bedside Commode # Voids 1 1 1 - Labs CBC & Chem 7: 03/05/20 12:05 03/07/20 06:34 Labs: Abnormal Lab Results - Last 24 Hours (Table) 03/07/20 Range/Units 06:34 Sodium 132 L (137-145) mmol/L Potassium 5.3 H (3.5-5.1) mmol/L Carbon Dioxide 19 L (22-30) mmol/L BUN 31 H (7-17) mg/dL ALT 35 H (4-34) U/L Total Protein 5.8 L (6.3-8.2) g/dL Albumin 3.4 L (3.5-5.0) g/dL
[2020-03-07] MEDS: SODIUM CHLORIDE 0.9% 1,000 ML IV SCH ×2 (16:31→21:20)
[2020-03-07] MEDS: LORazepam 0.5 MG TAB PO PRN (21:33)
[2020-03-08] MEDS: LORazepam 0.5 MG TAB PO PRN (02:26)
[2020-03-08] MEDS ORDERED: AMINOPHYLLINE 500 MG/20 ML VIAL IV PRN (06:00)
[2020-03-08] MEDS ORDERED: CAFFEINE CITRATE 60 MG/3 ML VIAL IV PRN (06:00)
[2020-03-08 06:28] LABS: ALT 26 U/L (4-34); AST 20 U/L (14-36); African American GFR (CKD) >90 (>60 ml/min/1.73 sqM); Albumin 3.4 g/dL (3.5-5.0); Alkaline Phosphatase 59 U/L (38-126); Anion Gap 5 mmol/L; Bilirubin, Delta 0.2 mg/dL (0.0-0.2); Bilirubin,Unconjugated 0.1 mg/dL (0.0-1.1); Blood Urea Nitrogen 26 mg/dL (7-17); Calcium 8.7 mg/dL (8.4-10.2); Carbon Dioxide 22 mmol/L (22-30); Chloride 107 mmol/L (98-107); Glucose 99 mg/dL (74-99); Magnesium 1.9 mg/dL (1.6-2.3); Non-African American GFR(CKD) >90 (>60 ml/min/1.73 sqM); Potassium 5.1 mmol/L (3.5-5.1); Sodium 134 mmol/L (137-145); Total Bilirubin 0.3 mg/dL (0.2-1.3); Total Protein 5.8 g/dL (6.3-8.2)
[2020-03-08] MEDS: carvediloL 3.125 MG TAB PO SCH (06:37)
[2020-03-08] MEDS: amLODIPine 5 MG TAB PO SCH (08:29)
[2020-03-08] MEDS: ASPIRIN 81 MG PO SCH (08:29)
[2020-03-08] MEDS: hydrALAZINE HCL 50 MG TAB PO SCH (08:29)
[2020-03-08] MEDS: VENLAFAXINE HCL 50 MG TAB PO SCH (08:29)
[2020-03-08] MEDS: lisinopriL 20 MG TAB PO SCH (08:29)
[2020-03-08] MEDS: ISOSORBIDE MONONITRATE ER 30 MG TAB.ER.24H PO SCH (08:29)
[2020-03-08] MEDS: SPIRONOLACTONE 25 MG TAB PO SCH (08:29)
[2020-03-08] MEDS: ATORVASTATIN 80 MG TAB PO SCH (08:29)
[2020-03-08] MEDS ORDERED: ACETAMINOPHEN TAB 325 MG TAB PO PRN (08:31)
[2020-03-08] MEDS ORDERED: REGADENOSON 0.4 MG/5 ML SYRINGE IV ONE (09:00)
[2020-03-08 09:41] VITALS: BP 163/60; PULSE 64; RESP 16; TEMP 97.5
[2020-03-08] MEDS ORDERED: AMINOPHYLLINE 500 MG/20 ML VIAL IV ONE (10:00)
--- NOTE | 2020-03-08 10:32 | PN ---
PROGRESS NOTE Mrs Bustamante is a 64-year-old female with known history of peripheral vessel disease, carotid disease and subclavian stenosis, history of hypertension who was recently admitted through the emergency room with symptoms of dizziness, especially when she stands up. She was in the hospital recently. She had some discomfort in the chest with it. She has dizziness but no syncope. She has no significant palpitation, but she was feeling the symptoms of anxiety and feeling of a sudden surge. She could not sleep well last night. She of her antihypertensive regimen was adjusted after admission. The patient has a prior history of smoking. She denies any nausea or vomiting. She has no fever at home. She had an echocardiogram during her last admission revealed a preserved ventricular size and systolic function. She continues to be at this time on amlodipine 5 mg twice a day, aspirin, Lipitor 80 mg daily, Coreg 3.125 mg twice a day, hydralazine 50 mg 3 times a day, isosorbide mononitrate 30 mg daily, lisinopril 20 mg twice a day and spironolactone 25 mg daily. PHYSICAL EXAMINATION: Blood pressure running in the 130s with a heart rate in the 60s. LUNGS: Clear. HEART: Regular rate and rhythm, S1, S2. No S3 with systolic murmur heard at the base, ejection type, no diastolic murmur. Subclavian bruit was noted. ABDOMEN: Soft, nontender. EXTREMITIES: No edema. LAB DATA: Revealed troponin less than 0.012, potassium of 5.1, BUN and creatinine 26 and 0.66. His cholesterol 158, LDL of 98. IMPRESSION: 1. Symptoms of dizziness, most likely related to orthostatic hypotension, related to the medication. Patient was on clonidine as well as other diuretics. 2. Chest discomfort with some atypical features for ischemic heart disease, could be noncardiac. 3. History of hypertension. 4. History of carotid disease. 5. Right subclavian stenosis. 6. Chronic tobacco use. RECOMMENDATION: We will proceed with a myocardial perfusion imaging and depending on that, further recommendation will be made. Thank you for this consult. Will follow with you. MMODL / IJN: [id number] /
--- NOTE | 2020-03-08 12:07 | P.PN ---
Progress Note - Text Progress Note Date: 03/08/20 Attempted to see patient. Patient was out of room for cardiac stress test. Assessment: #1 left internal carotid artery stenosis, asymptomatic, 80% #2 right asymptomatic subclavian stenosis #3 chest pain #4 recent hypertensive emergency with initiation of new antihypertensive medications #4 tobacco abuse We'll continue to follow. Patient to follow-up with Dr. Short after discharge for outpatient scheduling for carotid endarterectomy as well as possible subcla vian angioplasty and stent. The above dictated assessment and findings were discussed with Dr. Short. The impression and plan of care have been directed as dictated.
--- NOTE | 2020-03-08 12:13 | NM ---
EXAMINATION TYPE: NM stress lexiscan cardiolite DATE OF EXAM: 03/08/2020 COMPARISON: NONE HISTORY: Chest pain TECHNIQUE: After the intravenous administration of 9.9 mCi Tc 99m Sestamibi - Cardiolite resting SPE CT images acquired 80 minutes post injection. The patient received 0.4mg Lexiscan, 24.9 mCi Tc 99m Sestamibi - Stress images obtained [address] injection FINDINGS: Review of stress and rest SPECT images demonstrates no distinct perfusion abnormality. Gated analysi s shows normal wall motion with an estimated left ventricular ejection fraction of 70 %. TID 1.00 IMPRESSION: 1. No scintigraphic evidence for reversible ischemia. 2. Ejection fraction 70%.
--- NOTE | 2020-03-08 13:45 | EST ---
EXERCISE STRESS AGE: 64 SEX: F HT: 5'3" WT: 133 PROTOCOL: Lexiscan STAGE: DURATION OF EXERCISE: HEART RATE REST: 70 BLOOD PRESSURE REST: 165/66 MAXIMUM HEART RATE ACHIEVED: 97 MAXIMUM BLOOD PRESSURE: 165/66 85% MPHR: 100% MPHR: METS: INDICATIONS: Chest pain. CLINICAL INFORMATION: Baseline rhythm is sinus mechanism, rate of 70, normal axis and intervals, evidence of left ventricular hypertrophy, nonspecific ST-T wave changes. Baseline blood pressure 165/66 mmHg. Cardiolite was injected per protocol. Electrocardiograph monitoring revealed rare PVCs. There was no evidence of diagnostic ischemic ST deviation. FINDINGS: 1. Nondiagnostic calcification during stress testing. 2. Nuclear images will be reported separately. MMODL / IJN: [id number] /
[2020-03-08] MEDS: SODIUM CHLORIDE 0.9% 1,000 ML IV SCH (15:31)
--- NOTE | 2020-03-11 13:40 | P.DS ---
Providers Date of admission: 03/08/20 07:16 Attending physician: Nagi Gonzalez Consults: 03/05/20 13:12 Consult Physician Urgent Consulting Provider: Guido Spears Consult Reason/Comments: cp Do you want consulting provider notified?: Yes 03/05/20 19:16 Consult Physician Routine Consulting Provider: Tracy Short Consult Reason/Comments: carotid stenosis Do you want consulting provider notified?: Yes, Notify in am Primary care physician: Beena Doherty [facility] Course: Diagnoses: Chest pain Orthostatic hypotension, stop hydrochlorothiazide and improved with IV fluids Hyponatremia, hypovolemic Mild transaminitis, improving Hypertension with unknown discrepancy between the right and left side Recent history of Abdominal aortic narrowing with possible thrombosis , no need for anticoagulation as per vascular surgery Left internal carotid artery stenosis by 80%, no need for surgical intervention by vascular surgery as well Emphysema, not an active issue Hospital course: This is a pleasant 64 years old female with multiple medical problems as below, she was discharged from the hospital 1-2 days ago for hypertensive urgency and discrepancy of blood pressure between the right and left sides, patient eventually that her blood pressure control on several blood pressure medication and went home with a recommendation for outpatient follow-up, however next day morning she started developing chest pain,and her blood pressure recorded was 79/55 on the right side and 162/66 on the left side. when she came to the hospital ,Troponin 3 is less than 0.012.EKG showing sinus bradycardia at [address]-T changes. QTC 451. Dough Mixer Helper evaluated the patient, her chest pain improved and she was cleared by bilingual kindergarten teacher for discharge Patient was hypotensive with postural dizziness, hydrochlorothiazide was held due to hyponatremia, patient received IV fluid and she felt better. Clonidine was stopped and patient is started on Imdur. Dr. Short evaluated the patient and recommended outpatient carotid endarterectomy and possible subclavian angioplasty and stent Patient will be discharged with permissive hypertension to her vascular disease been fixed by surgery team as per cardiology team and Dr. Spears recommendation. On the day of discharge patient has no other symptoms or complaints and she feels ready to go home Patient was cleared for discharge by cardiology and vascular surgery Patient to continue on Coreg, imdur, hydralazine, lisinopril, and Aldactone. Possible continue with aspirin Problems and management plan were discussed with the patient and he verbalized understanding and acceptance Patient was found stable and can be discharged home however he needs follow-up as an outpatient. Patient was instructed to follow up with PCP Dr. Beena castro within one week and patient agrees. Patient also was instructed to follow up with bilingual kindergarten teacher Dr. Matos and vascular surgeon Dr. Short in 1-2 weeks and she agrees to call and make her on the appointments for follow-up Gen: patient is a AAOx3, no distress CVS: S1-S2, RRR, no murmur Lungs: B/L CTA, no wheezing Abdomen: soft, no distention, no tenderness, positive bowel sounds Extremity: no leg edema or induration Time spent more than 35 minutes Plan - Discharge Summary Discharge Rx Participant: Yes New Discharge Prescriptions: New Isosorbide Mononitrate ER [Imdur] 30 mg PO DAILY #30 tab.er.24h Acetaminophen Tab [Tylenol] 650 mg PO Q6HR PRN tab PRN Reason: Fever and/ or Mild Pain Continue Aspirin EC [Ecotrin Low Dose] 81 mg PO DAILY Venlafaxine HCl [Effexor] 50 mg PO BID Spironolactone [Aldactone] 25 mg PO DAILY #30 tab hydrALAZINE HCL [Apresoline] 50 mg PO TID #90 tab Atorvastatin [Lipitor] 80 mg PO DAILY #30 tab amLODIPine [Norvasc] 5 mg PO BID #60 tab lisinopriL [Zestril] 20 mg PO BID #60 tab carvediloL [Coreg] 3.125 mg PO AC-BID Discontinued cloNIDine HCL [Catapres] 0.1 mg PO DAILY #30 tab hydroCHLOROthiazide [Hydrodiuril] 25 mg PO DAILY #30 tab Discharge Medication List Aspirin EC [Ecotrin Low Dose] 81 mg PO DAILY 02/26/20 [History] Venlafaxine HCl [Effexor] 50 mg PO BID 02/26/20 [History] Atorvastatin [Lipitor] 80 mg PO DAILY #30 tab 03/02/20 [Rx] Spironolactone [Aldactone] 25 mg PO DAILY #30 tab 03/02/20 [Rx] amLODIPine [Norvasc] 5 mg PO BID #60 tab 03/02/20 [Rx] hydrALAZINE HCL [Apresoline] 50 mg PO TID #90 tab 03/02/20 [Rx] lisinopriL [Zestril] 20 mg PO BID #60 tab 03/02/20 [Rx] carvediloL [Coreg] 3.125 mg PO AC-BID 03/05/20 [History] Acetaminophen Tab [Tylenol] 650 mg PO Q6HR PRN tab 03/08/20 [Rx] Isosorbide Mononitrate ER [Imdur] 30 mg PO DAILY #30 tab.er.24h 03/08/20 [Rx] Follow up Appointment(s)/Referral(s): Patria Matos MD [STAFF PHYSICIAN] - 2 Weeks Beena Doherty MD [Primary Care Provider] - 1-2 days Tracy Short DO [STAFF PHYSICIAN] - 1 Week (please keep follow up appointment that was made. ) Activity/Diet/Wound Care/Special Instructions: Heart healthy diet Activity is limited to old you see your doctor Discharge Disposition: HOME SELF-CARE
== END 2020-03-08 15:35 | disposition home or self-care (01) | DRG 312 ==
LOC: EC 11:31 → 3NCARDOBS 13:12 → OBSVTOIN 03-08 07:16
PROVIDERS: ADMIT Internal Medicine; ATTEND Internal Medicine
DX: I95.1 Orthostatic hypotension (principal); E87.1 Hypo-osmolality and hyponatremia; I11.9 Hypertensive heart disease without heart failure; J43.9 Emphysema, unspecified; I73.9 Peripheral vascular disease, unspecified; R07.89 Other chest pain; I65.22 Occlusion and stenosis of left carotid artery; E86.1 Hypovolemia; I70.8 Atherosclerosis of other arteries; E78.5 Hyperlipidemia, unspecified; I08.1 Rheumatic disorders of both mitral and tricuspid valves; F41.9 Anxiety disorder, unspecified; R00.1 Bradycardia, unspecified; R74.0 Nonspecific elevation of levels of transaminase and lactic acid dehydrogenase [LDH]; Z79.82 Long term (current) use of aspirin; Z79.899 Other long term (current) drug therapy; Z87.891 Personal history of nicotine dependence; Z90.89 Acquired absence of other organs; Z87.2 Personal history of diseases of the skin and subcutaneous tissue; Z87.42 Personal history of other diseases of the female genital tract; Z98.890 Other specified postprocedural states; Z88.0 Allergy status to penicillin; Z88.8 Allergy status to other drugs, medicaments and biological substances
CPT/HCPCS: 36415; 71046; 78452; 80048; 80053; 80061; 80076; 83735; 84484; 85025; 85610; 85730; 93005; 93017; 99285

== ENCOUNTER 2020-03-12 23:57 | Inpatient (IN) | payer MEDICARE ==
--- NOTE | 2020-03-13 00:04 | ED ---
Chest Pain HPI - General Stated Complaint: chest pain Time Seen by Provider: 03/12/20 23:58 Source: RN notes reviewed, old records reviewed - History of Present Illness Initial Comments: This is a 64-year-old female well-known to this facility for evaluations, multiple vascular issues including carotid stenosis abdominal aortic stenosis and questionable subclavian stenosis or steel. Patient comes in for chest pain today worsening chest pain with worsening elevated blood pressure. Recent hospital admission did follow up with [facility] and is planning on surgical clearance. Patient still persistent chest pain currently MD Complaint: chest pain -: hour(s) Onset: during rest Pain Location: substernal, left chest Severity: moderate Severity scale (1-10): 4 Quality: tightness Consistency: constant Improves With: nothing Worsens With: nothing Anginal Symptoms: dyspnea Other Symptoms: palpitations Treatments Prior to Arrival: none - Related Data Home Medications Medication Instructions Recorded Confirmed Aspirin EC [Ecotrin Low Dose] 81 mg PO DAILY 02/26/20 03/05/20 Venlafaxine HCl [Effexor] 50 mg PO BID 02/26/20 03/05/20 carvediloL [Coreg] 3.125 mg PO AC-BID 03/05/20 03/05/20 Previous Rx's Medication Instructions Recorded Atorvastatin [Lipitor] 80 mg PO DAILY #30 tab 03/02/20 Spironolactone [Aldactone] 25 mg PO DAILY #30 tab 03/02/20 amLODIPine [Norvasc] 5 mg PO BID #60 tab 03/02/20 hydrALAZINE HCL [Apresoline] 50 mg PO TID #90 tab 03/02/20 lisinopriL [Zestril] 20 mg PO BID #60 tab 03/02/20 Acetaminophen Tab [Tylenol] 650 mg PO Q6HR PRN tab 03/08/20 Isosorbide Mononitrate ER [Imdur] 30 mg PO DAILY #30 tab.er.24h 03/08/20 Allergies Allergy/AdvReac Type Severity Reaction Status Date / Time losartan [From Cozaar] Allergy Itching Verified 03/13/20 00:33 Penicillins Allergy Swelling Verified 03/13/20 00:33 Review of Systems ROS Statement: Those systems with pertinent positive or pertinent negative responses have been documented in the HPI. ROS Other: All systems not noted in ROS Statement are negative. EKG Findings - EKG Comments: EKG Findings:: EKG is sinus rhythm 75. 152 QRS 102 QTC 460 Past Medical History Past Medical History: Hypertension Additional Past Medical History / Comment(s): carotid stenosis History of Any Multi-Drug Resistant Organisms: None Reported Past Surgical History: Tonsillectomy Additional Past Surgical History / Comment(s): abdominal laparotomy, fibroid tumor from uterus, fibroid from L breast Past Anesthesia/Blood Transfusion Reactions: Postoperative Nausea & Vomiting (PONV) Past Psychological History: Anxiety Smoking Status: Former smoker Past Alcohol Use History: Occasional Past Drug Use History: None Reported General Exam General appearance: alert, in no apparent distress Head exam: Present: atraumatic, normocephalic, normal inspection Eye exam: Present: normal appearance, PERRL, EOMI. Absent: scleral icterus, conjunctival injection, periorbital swelling ENT exam: Present: normal exam, mucous membranes moist Neck exam: Present: normal inspection. Absent: tenderness, meningismus, lymphadenopathy Respiratory exam: Present: normal lung sounds bilaterally. Absent: respiratory distress, wheezes, rales, rhonchi, stridor Cardiovascular Exam: Present: regular rate, normal rhythm, normal heart sounds. Absent: systolic murmur, diastolic murmur, rubs, gallop, clicks GI/Abdominal exam: Present: soft, normal bowel sounds. Absent: distended, tenderness, guarding, rebound, rigid Extremities exam: Present: normal inspection, full ROM, normal capillary refill. Absent: tenderness, pedal edema, joint swelling, calf tenderness Back exam: Present: normal inspection Neurological exam: Present: alert, oriented X3, CN II-XII intact Psychiatric exam: Present: normal affect, normal mood Skin exam: Present: warm, dry, intact, normal color. Absent: rash Course Vital Signs 03/13/20 00:10 Temperature 97.8 F Pulse Rate 84 Respiratory 16 Rate Blood Pressure 126/78 O2 Sat by Pulse 99 Oximetry - Reevaluation(s) Reevaluation #1: 03/13/20 01:18 Medical records reviewed 03/13/20 01:18 Medical history is reviewed including ER visits and inpatient hospitalizations Reevaluation #2: 03/13/20 01:18 Patient has improved chest pain - Consultations Consultation #1: spoke with [facility] were okay to admit this patient Chest Pain MDM - MDM 64 female with recurrent chest pain and hypertension. Patient be admitted for continued evaluation of symptoms vascular and cardiology consultation Disposition Clinical Impression: Hypertensive emergency, Chest pain Disposition: ADMITTED IP TO THIS HOSP Condition: Undetermined Is patient prescribed a controlled substance at d/c from ED?: No Referrals: Beena Doherty MD [Primary Care Provider] - 1-2 days
[2020-03-13 00:21] LABS: Basophils # (A) 0.1 k/uL (0-0.2); Basophils % (A) 1 %; Eosinophils # (A) 0.4 k/uL (0-0.7); Eosinophils % (A) 4 %; HCT 41.8 % (34.0-46.0); HGB 13.8 gm/dL (11.4-16.0); Lymphocytes # (A) 2.3 k/uL (1.0-4.8); Lymphocytes % (A) 21 %; MCH 31.1 pg (25.0-35.0); MCHC 33.1 g/dL (31.0-37.0); Mean Platelet Volume 6.8; Monocytes # (A) 0.7 k/uL (0-1.0); Monocytes % (A) 6 %; Neutrophils # (A) 7.5 k/uL (1.3-7.7); Neutrophils % (A) 68 %; Platelet Count 280 k/uL (150-450); RBC 4.44 m/uL (3.80-5.40); RDW 12.5 % (11.5-15.5)
[2020-03-13 00:31] LABS: ALT 26 U/L (4-34); AST 26 U/L (14-36); African American GFR (CKD) >90 (>60 ml/min/1.73 sqM); Albumin 4.1 g/dL (3.5-5.0); Alkaline Phosphatase 74 U/L (38-126); Anion Gap 11 mmol/L; Blood Urea Nitrogen 20 mg/dL (7-17); Calcium 9.4 mg/dL (8.4-10.2); Carbon Dioxide 20 mmol/L (22-30); Chloride 98 mmol/L (98-107); Glucose 109 mg/dL (74-99); Non-African American GFR(CKD) >90 (>60 ml/min/1.73 sqM); Potassium 4.8 mmol/L (3.5-5.1); Sodium 129 mmol/L (137-145); Total Bilirubin 0.4 mg/dL (0.2-1.3); Total Protein 6.8 g/dL (6.3-8.2)
[2020-03-13 00:42] LABS: INR 0.9 (<1.2); Partial Thromboplastin Time 24.1 sec (22.0-30.0); Prothrombin Time 9.3 sec (9.0-12.0)
[2020-03-13 01:13] LABS: D-Dimer 1.06 mg/L FEU (<0.60)
[2020-03-13] MEDS ORDERED: MORPHINE SULFATE 4 MG/ML SYRINGE IVP PRN (01:17)
[2020-03-13] MEDS ORDERED: MORPHINE SULFATE 4 MG/ML SYRINGE IVP STA (01:17)
[2020-03-13] MEDS ORDERED: hydrALAZINE HCL 20 MG/ML 1 ML VIAL IVP STA (01:31)
[2020-03-13] MEDS ORDERED: SODIUM CHLORIDE 0.9% 1,000 ML IV ONE (01:31)
[2020-03-13] MEDS ORDERED: hydrALAZINE HCL 20 MG/ML 1 ML VIAL IVP PRN (01:31)
[2020-03-13] MEDS ORDERED: LABETALOL 5 MG/ML VIAL MDV IVP STA (01:31)
[2020-03-13] MEDS ORDERED: LORazepam 2 MG/ML INJ IV STA (02:38)
[2020-03-13] MEDS: SODIUM CHLORIDE 0.9% 1,000 ML IV SCH ×2 (06:09→15:08)
[2020-03-13] MEDS ORDERED: ACETAMINOPHEN TAB 325 MG TAB PO PRN (08:08)
[2020-03-13] MEDS: FAMOTIDINE 20 MG/2 ML VIAL IV SCH ×2 (08:48→20:31)
[2020-03-13] MEDS: HEPARIN SODIUM,PORCINE 5,000 UNIT/ML 1 ML VIAL SQ SCH ×2 (08:48→20:31)
[2020-03-13] MEDS: ATORVASTATIN 80 MG TAB PO SCH (08:48)
[2020-03-13] MEDS: ASPIRIN 81 MG PO SCH (08:48)
[2020-03-13] MEDS: ISOSORBIDE MONONITRATE ER 30 MG TAB.ER.24H PO SCH (08:49)
[2020-03-13] MEDS: SPIRONOLACTONE 25 MG TAB PO SCH (08:49)
[2020-03-13] MEDS: VENLAFAXINE HCL 50 MG TAB PO SCH ×2 (08:49→20:31)
[2020-03-13] MEDS: lisinopriL 20 MG TAB PO SCH ×2 (08:49→20:31)
[2020-03-13] MEDS: carvediloL 3.125 MG TAB PO SCH ×2 (08:49→17:31)
[2020-03-13] MEDS: amLODIPine 5 MG TAB PO SCH ×2 (08:49→20:31)
[2020-03-13] MEDS ORDERED: hydrALAZINE HCL 25 MG TAB PO SCH (09:00)
[2020-03-13] MEDS ORDERED: ONDANSETRON 4 MG/2 ML VIAL IVP STA (09:25)
[2020-03-13] MEDS ORDERED: ONDANSETRON 4 MG/2 ML VIAL ONE (09:26)
--- NOTE | 2020-03-13 10:40 | P.HPIM ---
History of Present Illness This is a pleasant 64 years old female with multiple medical problems as below, mainly hypertension, Abdominal aortic narrowing with possible thrombosis, Left internal carotid artery stenosis by 80%,. She is a patient of Dr. Beena do. This is a admission to the hospital in one month, first time she was in the ICU from 02/25-03/02 for uncontrolled hypertension and again for chest pain from 03/06- 03/08 for chest pain and orthostatic hypotension. This time presents because of chest pain , which feels similar to last and chest pressure however this time is more severe about 7/10 and also radiated to the left shoulder and left neck and also associated with lightheadedness and dyspnea like last time, however she felt it more severe this time. Patient and daughter Mrs. Coyne at bedside have records of blood pressure measurements which was SBP ranging 109-150, however at the time if she had chest pain yesterday around 2-3 PM her blood pressure was 199/68. Patient was compliant with her medication she was skipping Aldactone at times of her blood pressure was on the low side for example SBP 100-120. Patient has some tremor upon admission, however no loss of consciousness. Patient denies weakness or numbness, she denies blurred vision or hallucination. No more tremor or involuntary movements. No headache or neck pain. Patient also denies abdominal pain, she felt nauseated this morning but no vomiting. She has some bladder irritation last night and she got 1 L of normal saline The suspicion of seizure is low, however I told the patient we do not have neurologist in this hospital over the weekend and offered to transfer her to another hospital for neurological evaluation but she declined. We'll keep monitoring the patient for now Patient informed about elevated d-dimer, with possibility rule out PE, last time patient has CTA of the chest which was negative for PE. After explaining the risks of nephrotoxicity, patient preferred to go with VQ scan which is alternative test especially she might need iv contrast if cardiac cath recommended by software development coordinator. Kwasi looks stable. On admission her blood pressure was 212/73 and she 1 dose of IV hydralazine and IV labetalol. Currently her blood pressure 160/60 Labs showing mild leukocytosis of 11 K, elevated d-dimer at 1.06, sodium 129, creatinine normal at 0.6,, serial troponin less than 0.012 x3. Lipase is slightly elevated at 575 EKG showing normal sinus rhythm at [address]-T changes. and emergency room she received IV hydralazine and IV labetalol and IV Ativan, also she refuses 1 dose of IV morphine. She received 1 L of normal saline. Review of Systems CONSTITUTIONAL: No fever, no malaise, no fatigue. HEENT: No recent visual problems or hearing problems. Denied any sore throat. CARDIOVASCULAR: No orthopnea, PND, no palpitations, no syncope. PULMONARY: No shortness of breath, no cough, no hemoptysis. GASTROINTESTINAL: No diarrhea, no nausea, no vomiting, no abdominal pain. Nor moactive bowel sounds. NEUROLOGICAL: No headaches, no weakness, no numbness. HEMATOLOGICAL: Denies any bleeding or petechiae. GENITOURINARY: Denies any burning micturition, frequency, or urgency. MUSCULOSKELETAL/RHEUMATOLOGICAL: Denies any joint pain, swelling, or any muscle pain. ENDOCRINE: Denies any polyuria or polydipsia. Past Medical History Past Medical History: Hypertension Additional Past Medical History / Comment(s): carotid stenosis History of Any Multi-Drug Resistant Organisms: None Reported Past Surgical History: Tonsillectomy Additional Past Surgical History / Comment(s): abdominal laparotomy, fibroid tumor from uterus, fibroid from L breast Past Anesthesia/Blood Transfusion Reactions: Postoperative Nausea & Vomiting (PONV) Past Psychological History: Anxiety Smoking Status: Former smoker Past Alcohol Use History: Occasional Past Drug Use History: None Reported Medications and Allergies Home Medications Medication Instructions Recorded Confirmed Type Aspirin EC [Ecotrin Low Dose] 81 mg PO DAILY 02/26/20 03/13/20 History Venlafaxine HCl [Effexor] 50 mg PO BID 02/26/20 03/13/20 History Atorvastatin [Lipitor] 80 mg PO DAILY #30 tab 03/02/20 03/13/20 Rx Spironolactone [Aldactone] 25 mg PO DAILY #30 tab 03/02/20 03/13/20 Rx amLODIPine [Norvasc] 5 mg PO BID #60 tab 03/02/20 03/13/20 Rx hydrALAZINE HCL [Apresoline] 50 mg PO TID #90 tab 03/02/20 03/13/20 Rx lisinopriL [Zestril] 20 mg PO BID #60 tab 03/02/20 03/13/20 Rx carvediloL [Coreg] 3.125 mg PO AC-BID 03/05/20 03/13/20 History Acetaminophen Tab [Tylenol] 650 mg PO Q6HR PRN tab 03/08/20 03/13/20 Rx Isosorbide Mononitrate ER [Imdur] 30 mg PO DAILY #30 tab.er.24h 03/08/20 0 03/13/20 Rx Allergies Allergy/AdvReac Type Severity Reaction Status Date / Time losartan [From Cozaar] Allergy Itching Verified 03/13/20 09:15 Penicillins Allergy Swelling Verified 03/13/20 09:15 Physical Exam Vitals: Vital Signs Temp Pulse Pulse Resp BP BP Pulse Ox 03/13/20 06:24 160/60 03/13/20 04:09 82 20 03/13/20 03:48 97.8 F 82 20 166/64 98 03/13/20 02:43 97.8 F 82 20 212/73 98 03/13/20 01:45 97.8 F 74 18 184/71 98 03/13/20 00:10 97.8 F 84 16 126/78 99 Intake and Output 03/12/20 03/13/20 03/13/20 22:59 06:59 14:59 Output Total 1100 Balance -1100 Output: Urine 1100 Straight 1100 Other: Voiding Method Incontinent # Voids 1 Weight 60.781 kg GENERAL: The patient is alert and oriented x3, not in any acute distress. Well developed, well nourished. HEENT: Pupils are round and equally reacting to light. EOMI. No scleral icterus. No conjunctival pallor. Normocephalic, atraumatic. No pharyngeal erythema. No thyromegaly. CARDIOVASCULAR: S1 and S2 present. No murmurs, rubs, or gallops. PULMONARY: Chest is clear to auscultation, no wheezing or crackles. ABDOMEN: Soft, nontender, nondistended, normoactive bowel sounds. No palpable organomegaly. MUSCULOSKELETAL: No joint swelling or deformity. EXTREMITIES: No cyanosis, clubbing, or pedal edema. NEUROLOGICAL: Gross neurological examination did not reveal any focal deficits. SKIN: No rashes. No petechiae Results CBC & Chem 7: 03/13/20 00:13 03/13/20 00:13 Labs: Abnormal Lab Results - Last 24 Hours (Table) 03/13/20 03/13/20 03/13/20 Range/Units 00:13 00:13 00:13 WBC 11.0 H (3.8-10.6) k/uL D-Dimer 1.06 H (<0.60) mg/L FEU Sodium 129 L (137-145) mmol/L Carbon Dioxide 20 L (22-30) mmol/L BUN 20 H (7-17) mg/dL Glucose 109 H (74-99) mg/dL Lipase 575 H (23-300) U/L Thrombosis Risk Factor Assmnt - Choose All That Apply Each Risk Factor Represents 2 Points: Age 61-74 years Thrombosis Risk Factor Assessment Total Risk Factor Score: 2 Thrombosis Risk Factor Assessment Level: Low Risk Assessment and Plan Assessment: chest pain, rule out cardiac and pulmonary causes elevated d-dimer, check V/Q scan permissive hypertension , with urgency upon admission Mild hyponatremia Abdominal aortic narrowing with possible thrombosis , no need for anticoagulation as per per previous recommendation by vascular surgery Left internal carotid artery stenosis by 80%, no need for surgical intervention as per previous recommendation by vascular surgery as well Emphysema, not an active issue Plan: this is a pleasant 64 years old female who presents with chest pain and hypertension, with positive troponin, cardiology consult. Continue with antihypertensive medication and follow blood pressure closely, Follow-up vascular surgery team recommendation. We'll check V/Q scan. Check a bladder scan Labs and medication were reviewed.. Continue same treatment. Continue with symptomatic treatment. Resume home medication. Monitor lytes and vitals. DVT and GI prophylaxis. Further recommendations of the clinical course of the patient DVT prophylaxis: Subcutaneous heparin GI Prophylaxis: Pepcid Prognosis is guarded
[2020-03-13] MEDS ORDERED: hydrALAZINE HCL 25 MG TAB PO STA (11:43)
--- NOTE | 2020-03-13 11:47 | P.CRDCN ---
History of Present Illness History of present illness: HISTORY OF PRESENTING ILLNESS This is a pleasant 64-year-old female past medical history significant for hypertension, peripheral vascular disease and carotid stenosis. We have been asked to see in consultation for chest pain. She presented to the hospital for symptoms of chest discomfort, nausea, vomiting and hypertension. This is her third admission this month for similar complaints. Her blood pressure has been very difficult to control and fluctuates frequently at home. She has been keeping a pretty detailed records. Up until yesterday her blood pressure numbers were fairly stable. She had been holding her Aldactone in the morning because her blood pressures were 120s over 80s. Yesterday while sitting down she developed a pressure sensation in the chest with radiation to the base of her throat, neck and left shoulder. She also felt increasingly short of breath and mildly lightheaded at that time. She is currently working closely with Dr. Short with plans for left carotid endarterectomy pending cardiac clearance. She has an appointment to see Dr. Matos in the office on Sunday. She underwent a Lexiscan stress test earlier this month that showed no evidence of reversibility. Echocardiogram revealed preserved LV systolic function with no significant wall motion abnormalities, ejection fraction 55-60% and mild mitral regurg. DIAGNOSTICS EKG reveals sinus mechanism with LVH. Laboratory reviewed, WBC 11, hemoglobin 13.8, platelets 280, d-dimer 1.06, sodium 129, potassium 4.8, creatinine 0.62, and magnesium 2.0, cardiac enzymes negative 3, NT proBNP 155 and lipase 575. Current cardiac medications include lisinopril 20 mg twice a day, hydralazine 50 mg 3 times a day, Coreg 3.125 g twice a day, amlodipine 5 mg twice a day, Aldactone 25 mg daily, Imdur 30 mg daily, atorvastatin 80 mg daily and aspirin 81 mg daily. REVIEW OF SYSTEMS At the time of my exam: CONSTITUTIONAL: Denies fever or chills. CARDIOVASCULAR: Denies chest pain, shortness of breath, orthopnea, PND or palpitations. RESPIRATORY: Denies cough. GASTROINTESTINAL: Denies abdominal pain, diarrhea, constipation, nausea or vomiting. MUSCULOSKELETAL: Denies myalgias. NEUROLOGIC: Denies numbness, tingling or weakness. ENDOCRINE: Denies fatigue, weight change, polydipsia or polyurina. GENITOURINARY: Denies burning, hematuria or urgency with micturation. HEMATOLOGIC: Denies history of anemia or bleeding. PHYSICAL EXAMINATION Blood pressure 161/61 heart rate 78 afebrile and maintaining oxygen saturation on nasal cannula. CONSTITUTIONAL: No apparent distress. HEENT: Head is normocephalic. Pupils are equal, round. Sclerae anicteric. Mucous membranes of the mouth are moist. No JVD. No carotid bruit. CHEST EXAMINATION: Lungs are clear to auscultation. No chest wall tenderness is noted on palpation or with deep breathing. HEART EXAMINATION: Regular rate and rhythm. S1, S2 heard. No murmurs, gallops or rub. ABDOMEN: Soft, nontender. Positive bowel sounds. EXTREMITIES: diminished femoral pulses bilaterally, bilateral feet warm with no palpable pulses, doppler flow requred, no lower extremity edema and no calf tenderness. NEUROLOGIC EXAMINATION: Patient is awake, alert and oriented x3. ASSESSMENT Chest pain Hypertension, uncontrolled Leukocytosis Peripheral vascular disease Carotid artery stenosis PLAN Increase hydralazine to 75 mg TID, give additional dose of 25 mg now. She may require when necessary antihypertensive medication moving forward with this regimen does not control her blood pressure. VQ scan ordered and pending. Consider renal artery doppler. Check b/l lower extremity arterial doppler given diminished lower extremity and femoral pulses. Given her frequent admissions for ongoing chest discomfort and the fact that she has peripheral vascular disease recommend proceeding with cardiac catheterization to assess for underlying coronary artery disease. I have discussed the risks, benefits and alternative therapies for the above-mentioned procedure and for both sedation/analgesia as well as necessary blood product administration, if indicated, as they pertain to this patient. The patient has indicated understanding and acceptance of the risks and procedures discussed. Questions have been answered appropriately and she is agreeable to move forward with the above stated procedure. This will take place on Sunday. She will be nothing by mouth after midnight on Sunday. Further recommendations to follow based upon clinical course. Thank you kindly for this consultation. Nurse Practitioner note has been reviewed, I agree with a documented findings and plan of care. Patient was seen and examined. Past Medical History Past Medical History: Hypertension Additional Past Medical History / Comment(s): carotid stenosis History of Any Multi-Drug Resistant Organisms: None Reported Past Surgical History: Tonsillectomy Additional Past Surgical History / Comment(s): abdominal laparotomy, fibroid tumor from uterus, fibroid from L breast Past Anesthesia/Blood Transfusion Reactions: Postoperative Nausea & Vomiting (PONV) Past Psychological History: Anxiety Smoking Status: Former smoker Past Alcohol Use History: Occasional Past Drug Use History: None Reported Medications and Allergies Home Medications Medication Instructions Recorded Confirmed Type Aspirin EC [Ecotrin Low Dose] 81 mg PO DAILY 02/26/20 03/13/20 History Venlafaxine HCl [Effexor] 50 mg PO BID 02/26/20 03/13/20 History Atorvastatin [Lipitor] 80 mg PO DAILY #30 tab 03/02/20 03/13/20 Rx Spironolactone [Aldactone] 25 mg PO DAILY #30 tab 03/02/20 03/13/20 Rx amLODIPine [Norvasc] 5 mg PO BID #60 tab 03/02/20 03/13/20 Rx hydrALAZINE HCL [Apresoline] 50 mg PO TID #90 tab 03/02/20 03/13/20 Rx lisinopriL [Zestril] 20 mg PO BID #60 tab 03/02/20 03/13/20 Rx carvediloL [Coreg] 3.125 mg PO AC-BID 03/05/20 03/13/20 History Acetaminophen Tab [Tylenol] 650 mg PO Q6HR PRN tab 03/08/20 03/13/20 Rx Isosorbide Mononitrate ER [Imdur] 30 mg PO DAILY #30 tab.er.24h 03/08/20 03/13/20 Rx Allergies Allergy/AdvReac Type Severity Reaction Status Date / Time losartan [From Cozaar] Allergy Itching Verified 03/13/20 09:15 Penicillins Allergy Swelling Verified 03/13/20 09:15 Physical Exam Vitals: Vital Signs Temp Pulse Pulse Resp BP BP Pulse Ox 03/13/20 08:04 97.9 F 78 18 161/61 97 03/13/20 06:24 160/60 03/13/20 04:09 82 20 03/13/20 03:48 97.8 F 82 20 166/64 98 03/13/20 02:43 97.8 F 82 20 212/73 98 03/13/20 01:45 97.8 F 74 18 184/71 98 03/13/20 00:10 97.8 F 84 16 126/78 99 Intake and Output 03/12/20 03/13/20 03/13/20 22:59 06:59 14:59 Output Total 1100 600 Balance -1100 -600 Output: Urine 1100 600 Straight 1100 600 Other: Voiding Method Incontinent # Voids 1 Weight 60.781 kg Results 03/13/20 00:13 03/13/20 00:13 Cardiac Enzymes 03/13/20 03/13/20 03/13/20 Range/Units 00:13 00:13 03:19 AST 26 (14-36) U/L Troponin I <0.012 <0.012 (0.000-0.034) ng/mL 03/13/20 Range/Units 05:39 AST (14-36) U/L Troponin I <0.012 (0.000-0.034) ng/mL Coagulation 03/13/20 Range/Units 00:13 PT 9.3 (9.0-12.0) sec APTT 24.1 (22.0-30.0) sec CBC 03/13/20 Range/Units 00:13 WBC 11.0 H (3.8-10.6) k/uL RBC 4.44 (3.80-5.40) m/uL Hgb 13.8 (11.4-16.0) gm/dL Hct 41.8 (34.0-46.0) % Plt Count 280 (150-450) k/uL Comprehensive Metabolic Panel 03/13/20 Range/Units 00:13 Sodium 129 L (137-145) mmol/L Potassium 4.8 (3.5-5.1) mmol/L Chloride 98 (98-107) mmol/L Carbon Dioxide 20 L (22-30) mmol/L BUN 20 H (7-17) mg/dL Creatinine 0.62 (0.52-1.04) mg/dL Glucose 109 H (74-99) mg/dL Calcium 9.4 (8.4-10.2) mg/dL AST 26 (14-36) U/L ALT 26 (4-34) U/L Alkaline Phosphatase 74 (38-126) U/L Total Protein 6.8 (6.3-8.2) g/dL Albumin 4.1 (3.5-5.0) g/dL Current Medications Generic Name Dose Route Start Last Admin Trade Name Freq PRN Reason Stop Dose Admin Acetaminophen 650 mg 03/13/20 08:08 Tylenol Tab PO Q6HR PRN Fever and/ or Mild Pain Amlodipine Besylate 5 mg 03/13/20 09:00 03/13/20 08:49 Norvasc PO 5 mg BID [facility] Administration Aspirin 81 mg 03/13/20 09:00 03/13/20 08:48 Aspirin PO 81 mg DAILY [facility] Administration Atorvastatin Calcium 80 mg 03/13/20 09:00 03/13/20 08:48 Lipitor PO 80 mg DAILY [facility] Administration Carvedilol 3.125 mg 03/13/20 08:30 03/13/20 08:49 Coreg PO 3.125 mg AC-BID [facility] Administration Famotidine 20 mg 03/13/20 09:00 03/13/20 08:48 Pepcid IV 20 mg Q12HR [facility] Administration Heparin Sodium (Porcine) 5,000 unit 03/13/20 09:00 03/13/20 08:48 Heparin SQ 5,000 unit Q12HR [facility] Administration Hydralazine HCl 10 mg 03/13/20 01:31 Apresoline IVP Q4HR PRN Blood Pressure - High Hydralazine HCl 50 mg 03/13/20 09:00 03/13/20 08:48 Apresoline PO 50 mg TID [facility] Administration Sodium Chloride 1,000 mls @ 20 mls/hr 03/13/20 01:15 03/13/20 06:09 Saline 0.9% IV Not Given .Q24H [facility] Isosorbide Mononitrate 30 mg 03/13/20 09:00 03/13/20 08:49 Imdur PO 30 mg DAILY [facility] Administration Lisinopril 20 mg 03/13/20 09:00 03/13/20 08:49 Zestril PO 20 mg BID [facility] Administration Morphine Sulfate 4 mg 03/13/20 01:17 Morphine Sulfate (Inj) IVP Q4HR PRN Pain Spironolactone 25 mg 03/13/20 09:00 03/13/20 08:49 Aldactone PO 25 mg DAILY [facility] Administration Venlafaxine HCl 50 mg 03/13/20 09:00 03/13/20 08:49 Effexor PO 50 mg BID [facility] Administration Intake and Output 03/12/20 03/13/20 03/13/20 22:59 06:59 14:59 Output Total 1100 600 Balance -1100 -600 Output: Urine 1100 600 Straight 1100 600 Other: Voiding Method Incontinent # Voids 1 Weight 60.781 kg 03/13/20 00:13 03/13/20 00:13
--- NOTE | 2020-03-13 14:14 | NM ---
EXAMINATION TYPE: NM pul vent and perfuse DATE OF EXAM: 03/13/2020 COMPARISON: Radiograph 03/05/2020 HISTORY: 64-year-old female high d-dimer, chest pain and difficulty breathing. Rule out PE. TECHNIQUE: Utilizing inhalation of 38.8 mCi Tc 99m DTPA aerosol and intravenous injection of 4.8 mCi of Tc 99m MAA, ventilation and perfusion images are acquired post injection in multiple projections. FINDINGS: Normal radiotracer distribution is noted in the lungs. There is no evidence of mismatched defects. IMPRESSION: Note that V/Q scans are generally not interpreted without an accompanying radiograph performed within 24 hours. However, as no discrete perfusion defect is seen, we are signing a very low probability fo r pulmonary embolus. Appropriate radiographic correlation recommended.
[2020-03-13] MEDS: hydrALAZINE HCL 25 MG TAB PO SCH ×2 (16:58→18:17)
--- NOTE | 2020-03-13 19:17 | P.GSCN ---
History of Present Illness Consult date: 03/13/20 History of present illness: Tracy is a 64-year-old female well known to me from outpatient and previous visits. She essentially is back for the same issue with increasing chest pains. She has been taking her blood pressures regularly and has been very difficult to control with increased multiple medications. She has known hypertension, peripheral vascular disease and carotid artery stenosis as well as subclavian stenosis on the right. We have been in the midst of trying to obtain cardiac clearance for possible carotid endarterectomy on the left for her 80% stenosis. At the time of my evaluation she denies a chest pains, shortness breath, nausea, vomiting or issues otherwise. She denies any dizziness. She denies any pain in her hands or legs. Past Medical History Past Medical History: Hypertension Additional Past Medical History / Comment(s): carotid stenosis History of Any Multi-Drug Resistant Organisms: None Reported Past Surgical History: Tonsillectomy Additional Past Surgical History / Comment(s): abdominal laparotomy, fibroid tumor from uterus, fibroid from L breast Past Anesthesia/Blood Transfusion Reactions: Postoperative Nausea & Vomiting (PONV) Past Psychological History: Anxiety Smoking Status: Former smoker Past Alcohol Use History: Occasional Past Drug Use History: None Reported Medications and Allergies Home Medications Medication Instructions Recorded Confirmed Type Aspirin EC [Ecotrin Low Dose] 81 mg PO DAILY 02/26/20 03/13/20 History Venlafaxine HCl [Effexor] 50 mg PO BID 02/26/20 03/13/20 History Atorvastatin [Lipitor] 80 mg PO DAILY #30 tab 03/02/20 03/13/20 Rx Spironolactone [Aldactone] 25 mg PO DAILY #30 tab 03/02/20 03/13/20 Rx amLODIPine [Norvasc] 5 mg PO BID #60 tab 03/02/20 03/13/20 Rx hydrALAZINE HCL [Apresoline] 50 mg PO TID #90 tab 03/02/20 03/13/20 Rx lisinopriL [Zestril] 20 mg PO BID #60 tab 03/02/20 03/13/20 Rx carvediloL [Coreg] 3.125 mg PO AC-BID 03/05/20 03/13/20 History Acetaminophen Tab [Tylenol] 650 mg PO Q6HR PRN tab 03/08/20 03/13/20 Rx Isosorbide Mononitrate ER [Imdur] 30 mg PO DAILY #30 tab.er.24h 03/08/20 03/13/20 Rx Allergies Allergy/AdvReac Type Severity Reaction Status Date / Time losartan [From Cozaar] Allergy Itching Verified 03/13/20 09:15 Penicillins Allergy Swelling Verified 03/13/20 09:15 Surgical - Exam Vital Signs Temp Pulse Resp BP Pulse Ox 97.8 F 84 16 126/78 99 03/13/20 00:10 03/13/20 00:10 03/13/20 00:10 03/13/20 00:10 03/13/20 00:10 Genitals a pleasant cooperative female in no acute distress. HEENT is normocephalic, atraumatic, excellent motion intact. Heart is regular in rate and rhythm. Lungs are clear bilaterally. Abdomen is soft nontender and nondistended. Extremity show no clubbing, cyanosis or edema. She has a palpable left radial pulse, a mildly weakened a right radial pulse. She had nonpalpable femoral pulses. Nonpalpable pedal pulses. Delayed capillary refill. No wounds. Normal mood and affect. Cranial nerves II through XII grossly intact Results Bilateral lower showed arterial Dopplers are reviewed. Waveforms are dampened. Significant decrease in pulse pressures at the femoral level. 26 on the right and 43 on the left. Her MAGALYS on the right is 0.22 and her MAGALYS on the left is 0.27. She also continues to redemonstrate significant brachial systolic pulse differential 60 on the right and 138 on the left - Labs 03/13/20 00:13 03/13/20 00:13 Abnormal Lab Results - Last 24 Hours (Table) 03/13/20 03/13/20 03/13/20 Range/Units 00:13 00:13 00:13 WBC 11.0 H (3.8-10.6) k/uL D-Dimer 1.06 H (<0.60) mg/L FEU Sodium 129 L (137-145) mmol/L Carbon Dioxide 20 L (22-30) mmol/L BUN 20 H (7-17) mg/dL Glucose 109 H (74-99) mg/dL Lipase 575 H (23-300) U/L Diabetes panel 03/13/20 Range/Units 00:13 Sodium 129 L (137-145) mmol/L Potassium 4.8 (3.5-5.1) mmol/L Chloride 98 (98-107) mmol/L Carbon Dioxide 20 L (22-30) mmol/L BUN 20 H (7-17) mg/dL Creatinine 0.62 (0.52-1.04) mg/dL Glucose 109 H (74-99) mg/dL Calcium 9.4 (8.4-10.2) mg/dL AST 26 (14-36) U/L ALT 26 (4-34) U/L Alkaline Phosphatase 74 (38-126) U/L Total Protein 6.8 (6.3-8.2) g/dL Albumin 4.1 (3.5-5.0) g/dL Calcium panel 03/13/20 Range/Units 00:13 Calcium 9.4 (8.4-10.2) mg/dL Albumin 4.1 (3.5-5.0) g/dL Pituitary panel 03/13/20 Range/Units 00:13 Sodium 129 L (137-145) mmol/L Potassium 4.8 (3.5-5.1) mmol/L Chloride 98 (98-107) mmol/L Carbon Dioxide 20 L (22-30) mmol/L BUN 20 H (7-17) mg/dL Creatinine 0.62 (0.52-1.04) mg/dL Glucose 109 H (74-99) mg/dL Calcium 9.4 (8.4-10.2) mg/dL Adrenal panel 03/13/20 Range/Units 00:13 Sodium 129 L (137-145) mmol/L Potassium 4.8 (3.5-5.1) mmol/L Chloride 98 (98-107) mmol/L Carbon Dioxide 20 L (22-30) mmol/L BUN 20 H (7-17) mg/dL Creatinine 0.62 (0.52-1.04) mg/dL Glucose 109 H (74-99) mg/dL Calcium 9.4 (8.4-10.2) mg/dL Total Bilirubin 0.4 (0.2-1.3) mg/dL AST 26 (14-36) U/L ALT 26 (4-34) U/L Alkaline Phosphatase 74 (38-126) U/L Total Protein 6.8 (6.3-8.2) g/dL Albumin 4.1 (3.5-5.0) g/dL Assessment and Plan Assessment: #1 severe hypertension #2 chest pain #3 high-grade left internal carotid artery stenosis #4 right subclavian high-grade stenosis versus occlusion #5 significant peripheral arterial disease, likely aortoiliac Plan: At this point the patient continues to be worked up for cardiac clearance for her future carotid endarterectomy. She has significant arterial disease throughout. At this time I do believe her carotid artery remains most pertinent and fixing. She does not have any wounds or rest pain at this time. Per notes, cardiology is planning to do a heart catheterization. If stable, will ask them to obtain an arteriogram with runoffs at that time if not artery utilizing significant contrast for future planning of the lower extremities.
--- NOTE | 2020-03-13 19:31 | XR ---
EXAMINATION TYPE: XR chest 1V DATE OF EXAM: 03/13/2020 COMPARISON: 03/05/2020 INDICATION: Routine, pain TECHNIQUE: Single frontal view of the chest is obtained. FINDINGS: The heart size is normal. The pulmonary vasculature is normal. The lungs are clear. IMPRESSION: 1. No acute pulmonary process.
[2020-03-13] MEDS ORDERED: ALPRAZolam 0.5 MG TAB PO PRN (20:24)
[2020-03-13 22:26] LABS: Appearance,Urine Clear (Clear); Bacteria,Urine Rare /hpf; Bilirubin,Urine Negative (Negative); Blood,Urine Negative (Negative); Color,Urine Light Yellow; Glucose,Urine (UA) Negative (Negative); Ketones,Urine Negative (Negative); Leukocyte Esterase,Urine Large (Negative); Mucus,Urine Rare /hpf; Nitrite,Urine Negative (Negative); PH, Urine 5.5 (5.0-8.0); Protein,Urine Negative (Negative); Specific Gravity,Urine 1.007 (1.001-1.035); Squamous Epithelial Cell,Urine 6 /hpf (0-4); Urobilinogen,Urine <2.0 mg/dL (<2.0); WBC,Urine 30 /hpf (0-5)
[2020-03-14] MEDS: SODIUM CHLORIDE 0.9% 1,000 ML IV SCH ×3 (00:34→09:35)
[2020-03-14 06:18] LABS: Basophils # (A) 0.1 k/uL (0-0.2); Basophils % (A) 1 %; Eosinophils # (A) 0.2 k/uL (0-0.7); Eosinophils % (A) 3 %; HCT 35.8 % (34.0-46.0); HGB 11.5 gm/dL (11.4-16.0); Lymphocytes # (A) 2.1 k/uL (1.0-4.8); Lymphocytes % (A) 25 %; MCH 30.9 pg (25.0-35.0); MCV 96.7 fL (80.0-100.0); Mean Platelet Volume 6.9; Monocytes # (A) 0.4 k/uL (0-1.0); Monocytes % (A) 5 %; Neutrophils # (A) 5.4 k/uL (1.3-7.7); Neutrophils % (A) 64 %; Platelet Count 238 k/uL (150-450); RBC 3.71 m/uL (3.80-5.40); RDW 12.7 % (11.5-15.5); WBC 8.4 k/uL (3.8-10.6)
[2020-03-14 06:28] LABS: Calcium 8.5 mg/dL (8.4-10.2); Potassium 4.7 mmol/L (3.5-5.1)
[2020-03-14] MEDS: carvediloL 3.125 MG TAB PO SCH ×2 (08:13→18:08)
[2020-03-14] MEDS: HEPARIN SODIUM,PORCINE 5,000 UNIT/ML 1 ML VIAL SQ SCH ×2 (08:55→20:23)
[2020-03-14] MEDS: lisinopriL 20 MG TAB PO SCH ×2 (08:55→20:22)
[2020-03-14] MEDS: hydrALAZINE HCL 25 MG TAB PO SCH ×3 (08:55→20:22)
[2020-03-14] MEDS: FAMOTIDINE 20 MG/2 ML VIAL IV SCH ×2 (08:55→20:23)
[2020-03-14] MEDS: VENLAFAXINE HCL 50 MG TAB PO SCH ×2 (08:56→23:30)
[2020-03-14] MEDS: SPIRONOLACTONE 25 MG TAB PO SCH (08:56)
[2020-03-14] MEDS: amLODIPine 5 MG TAB PO SCH ×2 (08:56→20:26)
[2020-03-14] MEDS: ISOSORBIDE MONONITRATE ER 30 MG TAB.ER.24H PO SCH (08:56)
[2020-03-14] MEDS: ASPIRIN 81 MG PO SCH (08:56)
[2020-03-14] MEDS: ATORVASTATIN 80 MG TAB PO SCH (08:56)
[2020-03-14] MEDS: TAMSULOSIN 0.4 MG CAP.ER.24H PO SCH (09:35)
[2020-03-14] MEDS ORDERED: ALPRAZolam 0.25 MG TAB PO PRN (12:14)
[2020-03-14] MEDS ORDERED: SODIUM CHLORIDE 0.9% 1,000 ML in EMPTY BAG 1 BAG IV ONE (12:14)
[2020-03-14] MEDS ORDERED: NITROGLYCERIN SL TABS 0.4 MG TAB SUBLINGUAL PRN (12:14)
--- NOTE | 2020-03-14 16:23 | P.PN ---
Subjective Progress Note Date: 03/14/20 This 64-year-old female with history of peripheral vascular disease, carotid disease and also subclavian stenosis is admitted to the hospital for the third time with chest pain. So far enzymes are negative. She is going to have carotid surgery. In view of multiple risk factors and ongoing chest pain, she is advised to have a cardiac catheterization. This is going to be done by Dr. Matos tomorrow. Patient most probably will have the procedure from left radial approach. Meanwhile we'll continue current medical therapy. Her sodium levels are improving Objective - Vital Signs Vital signs: Vital Signs Temp 97.6 F 03/14/20 15:00 Pulse 81 03/14/20 15:00 Resp 16 03/14/20 15:00 BP 147/60 03/14/20 15:00 Pulse Ox 97 03/14/20 15:00 Intake & Output 03/13/20 03/14/20 03/14/20 18:59 06:59 18:59 Intake Total 920 1090 Output Total 488 086 1759 Balance 320 -800 -610 Intake: IV 850 Sodium Chloride 0.9% 1, 800 000 ml @ 100 mls/hr IV . Q10H [facility] Rx#:[id number] cefTRIAXone 1 gm In 50 Sodium Chloride 0.9% 50 ml @ 100 mls/hr IVPB Q24HR [facility] Rx#:[id number] Oral 920 240 Output: Urine 819 099 8251 Straight 600 Other: Voiding Method Bedpan Bedside Commode Bedpan # Voids 1 - Exam GENERAL EXAM: Patient is alert and oriented and doesn't appear to be in any acute distress HEENT: Normocephalic. Normal reaction of pupils, equal size, normal range of extraocular motion. No erythema or exudates in the throat. NECK: No masses, no nuchal rigidity. CHEST: No chest wall deformity. LUNGS: Equal air entry with no crackles or wheeze. HEART: S1 and S2 normal with no audible mumurs or gallops. Regular rhythm, femorals equal on both sides.. ABDOMEN: No hepatosplenomegaly, normal bowel sounds, no guarding or rigidity. SKIN: No rashes CENTRAL NERVOUS SYSTEM: No focal deficits. EXTREMITIES: No cyanosis, clubbing or edema. - Labs CBC & Chem 7: 03/14/20 05:54 03/14/20 05:54 Labs: Abnormal Lab Results - Last 24 Hours (Table) 03/13/20 03/14/20 03/14/20 Range/Units 22:11 05:54 05:54 RBC 3.71 L (3.80-5.40) m/uL Sodium 132 L (137-145) mmol/L BUN 25 H (7-17) mg/dL Glucose 131 H (74-99) mg/dL Ur Leukocyte Esterase Large H (Negative) Urine WBC 30 H (0-5) /hpf Ur Squamous Epith Cells 6 H (0-4) /hpf Urine Bacteria Rare H (None) /hpf Urine Mucus Rare H (None) /hpf Microbiology - Last 24 Hours (Table) 03/13/20 22:11 Urine Culture - Preliminary Urine,Voided Assessment and Plan (1) Peripheral vascular disease Current Visit: Yes Status: Acute Code(s): I73.9 - PERIPHERAL VASCULAR DISEASE, UNSPECIFIED SNOMED Code(s): 914397588 (2) Chest pain Current Visit: Yes Status: Acute Code(s): R07.9 - CHEST PAIN, UNSPECIFIED SNOMED Code(s): 59566742 (3) Hypertension Current Visit: No Status: Acute Code(s): I10 - ESSENTIAL (PRIMARY) HYPERTENSION SNOMED Code(s): 85689392 (4) Carotid arterial disease Current Visit: Yes Status: Acute Code(s): I77.9 - DISORDER OF ARTERIES AND ARTERIOLES, UNSPECIFIED SNOMED Code(s): 966937955 Plan: Continue current medical therapy. Proceed with cardiac catheterization tomorrow
[2020-03-14] MEDS: ALPRAZolam 0.5 MG TAB PO PRN (20:26)
--- NOTE | 2020-03-14 20:42 | P.PN ---
Subjective This is a pleasant 64 years old female with multiple medical problems as below, mainly hypertension, Abdominal aortic narrowing with possible thrombosis, Left internal carotid artery stenosis by 80%,. She is a patient of Dr. Beena do. This is a admission to the hospital in one month, first time she was in the ICU from 02/25-03/02 for uncontrolled hypertension and again for chest pain from 03/06- 03/08 for chest pain and orthostatic hypotension. This time presents because of chest pain , which feels similar to last and chest pressure however this time is more severe about 7/10 and also radiated to the left shoulder and left neck and also associated with lightheadedness and dyspnea like last time, however she felt it more severe this time. Patient and daughter Mrs. Coyne at bedside have records of blood pressure measurements which was SBP ranging 109-150, however at the time if she had chest pain yesterday around 2-3 PM her blood pressure was 199/68. Patient was compliant with her medication she was skipping Aldactone at times of her blood pressure was on the low side for example SBP 100-120. Patient has some tremor upon admission, however no loss of consciousness. Patient denies weakness or numbness, she denies blurred vision or hallucination. No more tremor or involuntary movements. No headache or neck pain. Patient also denies abdominal pain, she felt nauseated this morning but no vomiting. She has some bladder irritation last night and she got 1 L of normal saline The suspicion of seizure is low, however I told the patient we do not have neurologist in this hospital over the weekend and offered to transfer her to another hospital for neurological evaluation but she declined. We'll keep monitoring the patient for now Patient informed about elevated d-dimer, with possibility rule out PE, last time patient has CTA of the chest which was negative for PE. After explaining the risks of nephrotoxicity, patient preferred to go with VQ scan which is alternative test especially she might need iv contrast if cardiac cath recommended by social insurance adviser. Kwasi looks stable. On admission her blood pressure was 212/73 and she 1 dose of IV hydralazine and IV labetalol. Currently her blood pressure 160/60 Labs showing mild leukocytosis of 11 K, elevated d-dimer at 1.06, sodium 129, creatinine normal at 0.6,, serial troponin less than 0.012 x3. Lipase is slightly elevated at 575 EKG showing normal sinus rhythm at [address]-T changes. and emergency room she received IV hydralazine and IV labetalol and IV Ativan, also she refuses 1 dose of IV morphine. She received 1 L of normal saline. 03/14/2020 Patient is awake and alert with no chest pain or dyspnea. No new complaints. Patient still have some postural symptoms especially when she stands up. Yesterday and today we checked her orthostatic vitals and she has orthostatic hypotension, patient was started on normal saline 100 mL per hour yesterday with some improvement today but not complete resolution. Hydralazine was increased from 50-75 mg 3 times a day and her blood pressure is slightly better today 147/60 Patient has urinary retention, needed straight cath, urine analysis was suspicious for infection and ceftriaxone was added, pending urine culture. She had mild leukocytosis which is improved today. Start the patient on Flomax Patient is planned for cardiac cath tomorrow Vascular surgery evaluated the patient, no plan for surgical intervention but patient may need carotid endarterectomy as an outpatient as per surgery team recommendation Hyponatremia is improving D-dimer is elevated but perfusion scan is negative and low probability for PE, chest x-ray is unremarkable, suspicion for PE is very low. Patient refused CTA of the chest for risk of contrast-induced nephropathy Review of systems CONSTITUTIONAL: No fever, no malaise, no fatigue. HEENT: No recent visual problems or hearing problems. Denied any sore throat. CARDIOVASCULAR: No orthopnea, PND, no palpitations, no syncope. PULMONARY: No shortness of breath, no cough, no hemoptysis. GASTROINTESTINAL: No diarrhea, no nausea, no vomiting, no abdominal pain. Normoactive bowel sounds. NEUROLOGICAL: No headaches, no weakness, no numbness. HEMATOLOGICAL: Denies any bleeding or petechiae. GENITOURINARY: Denies any burning micturition, frequency, or urgency. MUSCULOSKELETAL/RHEUMATOLOGICAL: Denies any joint pain, swelling, or any muscle pain. ENDOCRINE: Denies any polyuria or polydipsia. Active Medications Generic Name Dose Route Start Last Admin Trade Name Freq PRN Reason Stop Dose Admin Acetaminophen 650 mg 03/13/20 08:08 Tylenol Tab PO Q6HR PRN Fever and/ or Mild Pain Alprazolam 0.25 mg 03/14/20 12:14 Xanax PO Q6HR PRN Mild Anxiety Alprazolam 0.5 mg 03/14/20 12:14 03/14/20 20:26 Xanax PO 0.5 mg Q6HR PRN Administration Moderate Anxiety Amlodipine Besylate 5 mg 03/13/20 09:00 03/14/20 20:26 Norvasc PO 5 mg BID CASTRO Administration Aspirin 81 mg 03/13/20 09:00 03/14/20 08:56 Aspirin PO 81 mg DAILY CASTRO Administration Aspirin 325 mg 03/15/20 06:00 Aspirin PO 03/15/20 06:01 ONCE ONE Atorvastatin Calcium 80 mg 03/13/20 09:00 03/14/20 08:56 Lipitor PO 80 mg DAILY CASTRO Administration Atorvastatin Calcium 80 mg 03/15/20 06:00 Lipitor PO 03/15/20 06:01 ONCE ONE Carvedilol 3.125 mg 03/13/20 08:30 03/14/20 18:08 Coreg PO 3.125 mg AC-BID CASTRO Administration Famotidine 20 mg 03/13/20 09:00 03/14/20 20:23 Pepcid IV 20 mg Q12HR CASTRO Administration Heparin Sodium (Porcine) 5,000 unit 03/13/20 09:00 03/14/20 20:23 Heparin SQ 5,000 unit Q12HR CASTRO Administration Hydralazine HCl 75 mg 03/13/20 16:00 03/14/20 20:22 Apresoline PO 75 mg TID CASTRO Administration Sodium Chloride 1,000 mls @ 20 mls/hr 03/13/20 01:15 03/14/20 00:38 Saline 0.9% IV Not Given .Q24H CASTRO Sodium Chloride 1,000 mls @ 100 mls/hr 03/13/20 14:00 03/14/20 09:35 Saline 0.9% IV 100 mls/hr .Q10H CASTRO Administration Ceftriaxone Sodium 1 gm/ 50 mls @ 100 mls/hr 03/14/20 10:00 03/14/20 09:50 Sodium Chloride IVPB 100 mls/hr Q24HR CASTRO Administration Sodium Chloride 1,000 ml/ IV 1,000 mls @ 60.781 mls/hr 03/14/20 12:14 Solution IV 03/15/20 04:41 .[id number] ONE 1 ML/KG/HR Isosorbide Mononitrate 30 mg 03/13/20 09:00 03/14/20 08:56 Imdur PO 30 mg DAILY CASTRO Administration Lisinopril 20 mg 03/13/20 09:00 03/14/20 20:22 Zestril PO 20 mg BID CASTRO Administration Morphine Sulfate 4 mg 03/13/20 01:17 Morphine Sulfate (Inj) IVP Q4HR PRN Pain Nitroglycerin 0.4 mg 03/14/20 12:14 Nitrostat SUBLINGUAL Q5M PRN Chest Pain Spironolactone 25 mg 03/13/20 09:00 03/14/20 08:56 Aldactone PO 25 mg DAILY CASTRO Administration Tamsulosin HCl 0.4 mg 03/14/20 09:30 03/14/20 09:35 Flomax PO 0.4 mg [id number] CASTRO Administration Venlafaxine HCl 50 mg 03/13/20 09:00 03/14/20 08:56 Effexor PO 50 mg BID CASTRO Administration Objective - Vital Signs Vital signs: Vital Signs Temp 97.8 F 03/14/20 07:56 Pulse 68 03/14/20 07:56 Resp 16 03/14/20 07:56 BP 172/56 03/14/20 07:56 Pulse Ox 98 03/14/20 07:56 Intake & Output 03/13/20 03/14/20 03/14/20 18:59 06:59 18:59 Intake Total 920 240 Output Total 600 800 900 Balance 320 -800 -660 Intake: Oral 920 240 Output: Urine 600 800 900 Straight 600 Other: Voiding Method Bedpan Bedside Commode Bedpan # Voids 1 - Exam GENERAL: The patient is alert and oriented x3, not in any acute distress. Well developed, well nourished. HEENT: Pupils are round and equally reacting to light. EOMI. No scleral icterus. No conjunctival pallor. Normocephalic, atraumatic. No pharyngeal erythema. No thyromegaly. CARDIOVASCULAR: S1 and S2 present. No murmurs, rubs, or gallops. PULMONARY: Chest is clear to auscultation, no wheezing or crackles. ABDOMEN: Soft, nontender, nondistended, normoactive bowel sounds. No palpable organomegaly. MUSCULOSKELETAL: No joint swelling or deformity. EXTREMITIES: No cyanosis, clubbing, or pedal edema. NEUROLOGICAL: Gross neurological examination did not reveal any focal deficits. SKIN: No rashes. no petechiae. - Labs CBC & Chem 7: 03/14/20 05:54 03/14/20 05:54 Labs: Abnormal Lab Results - Last 24 Hours (Table) 03/13/20 03/14/20 03/14/20 Range/Units 22:11 05:54 05:54 RBC 3.71 L (3.80-5.40) m/uL Sodium 132 L (137-145) mmol/L BUN 25 H (7-17) mg/dL Glucose 131 H (74-99) mg/dL Ur Leukocyte Esterase Large H (Negative) Urine WBC 30 H (0-5) /hpf Ur Squamous Epith Cells 6 H (0-4) /hpf Urine Bacteria Rare H (None) /hpf Urine Mucus Rare H (None) /hpf Microbiology - Last 24 Hours (Table) 03/13/20 22:11 Urine Culture - Preliminary Urine,Voided Assessment and Plan Assessment: chest pain, rule out cardiac causes elevated d-dimer, with low probability V/Q scan for PE Urinary retention and possible acute urinary tract infection permissive hypertension , with urgency upon admission Mild hyponatremia Abdominal aortic narrowing with possible thrombosis , no need for anticoagulation as per per previous recommendation by vascular surgery Left internal carotid artery stenosis by 80%, no need for surgical intervention as per previous recommendation by vascular surgery as well Emphysema, not an active issue Plan: this is a pleasant 64 years old female who presents with chest pain and hypertension, with positive troponin, cardiology consult. Continue with antihypertensive medication and follow blood pressure closely, Follow-up vascular surgery team recommendation. Cardiac cath on 03/15. Continue with bladder scan and ceftriaxone follow-up urine culture Labs and medication were reviewed.. Continue same treatment. Continue with symptomatic treatment. Resume home medication. Monitor lytes and vitals. DVT and GI prophylaxis. Further recommendations of the clinical course of the patient DVT prophylaxis: Subcutaneous heparin GI Prophylaxis: Pepcid Prognosis is guarded
[2020-03-15] MEDS: ALPRAZolam 0.5 MG TAB PO PRN ×2 (02:11→21:13)
[2020-03-15] MEDS: hydrALAZINE HCL 25 MG TAB PO SCH ×3 (05:18→20:51)
[2020-03-15] MEDS: ISOSORBIDE MONONITRATE ER 30 MG TAB.ER.24H PO SCH (05:18)
[2020-03-15] MEDS: amLODIPine 5 MG TAB PO SCH ×2 (05:18→20:51)
[2020-03-15] MEDS: TAMSULOSIN 0.4 MG CAP.ER.24H PO SCH (05:18)
[2020-03-15] MEDS: carvediloL 3.125 MG TAB PO SCH ×2 (05:19→17:01)
[2020-03-15] MEDS: SODIUM CHLORIDE 0.9% 1,000 ML IV SCH ×4 (05:26→23:01)
[2020-03-15] MEDS: ASPIRIN 81 MG PO SCH (05:27)
[2020-03-15] MEDS: ATORVASTATIN 80 MG TAB PO SCH (05:27)
[2020-03-15] MEDS ORDERED: ASPIRIN 325 MG TAB PO ONE (06:00)
[2020-03-15] MEDS ORDERED: ATORVASTATIN 80 MG TAB PO ONE (06:00)
[2020-03-15 06:53] LABS: Basophils # (A) 0.1 k/uL (0-0.2); Basophils % (A) 1 %; Eosinophils # (A) 0.3 k/uL (0-0.7); Eosinophils % (A) 3 %; HCT 38.2 % (34.0-46.0); HGB 12.2 gm/dL (11.4-16.0); Lymphocytes # (A) 2.1 k/uL (1.0-4.8); Lymphocytes % (A) 23 %; MCHC 31.8 g/dL (31.0-37.0); MCV 97.3 fL (80.0-100.0); Mean Platelet Volume 7.3; Monocytes # (A) 0.7 k/uL (0-1.0); Monocytes % (A) 7 %; Neutrophils % (A) 65 %; Platelet Count 260 k/uL (150-450); RBC 3.93 m/uL (3.80-5.40); RDW 12.7 % (11.5-15.5); WBC 9.2 k/uL (3.8-10.6)
[2020-03-15 07:02] LABS: African American GFR (CKD) >90 (>60 ml/min/1.73 sqM); Anion Gap 7 mmol/L; Blood Urea Nitrogen 21 mg/dL (7-17); Calcium 8.7 mg/dL (8.4-10.2); Carbon Dioxide 24 mmol/L (22-30); Chloride 104 mmol/L (98-107); Glucose 91 mg/dL (74-99); Magnesium 1.9 mg/dL (1.6-2.3); Non-African American GFR(CKD) >90 (>60 ml/min/1.73 sqM); Potassium 4.7 mmol/L (3.5-5.1); Sodium 135 mmol/L (137-145)
--- NOTE | 2020-03-15 07:51 | P.PN ---
Subjective This is a pleasant 64 years old female with multiple medical problems as below, mainly hypertension, Abdominal aortic narrowing with possible thrombosis, Left internal carotid artery stenosis by 80%,. She is a patient of Dr. Beena do. This is a admission to the hospital in one month, first time she was in the ICU from 02/25-03/02 for uncontrolled hypertension and again for chest pain from 03/06- 03/08 for chest pain and orthostatic hypotension. This time presents because of chest pain , which feels similar to last and chest pressure however this time is more severe about 7/10 and also radiated to the left shoulder and left neck and also associated with lightheadedness and dyspnea like last time, however she felt it more severe this time. Patient and daughter Mrs. Coyne at bedside have records of blood pressure measurements which was SBP ranging 109-150, however at the time if she had chest pain yesterday around 2-3 PM her blood pressure was 199/68. Patient was compliant with her medication she was skipping Aldactone at times of her blood pressure was on the low side for example SBP 100-120. Patient has some tremor upon admission, however no loss of consciousness. Patient denies weakness or numbness, she denies blurred vision or hallucination. No more tremor or involuntary movements. No headache or neck pain. Patient also denies abdominal pain, she felt nauseated this morning but no vomiting. She has some bladder irritation last night and she got 1 L of normal saline The suspicion of seizure is low, however I told the patient we do not have neurologist in this hospital over the weekend and offered to transfer her to another hospital for neurological evaluation but she declined. We'll keep monitoring the patient for now Patient informed about elevated d-dimer, with possibility rule out PE, last time patient has CTA of the chest which was negative for PE. After explaining the risks of nephrotoxicity, patient preferred to go with VQ scan which is alternative test especially she might need iv contrast if cardiac cath recommended by emergency room tech. Kwasi looks stable. On admission her blood pressure was 212/73 and she 1 dose of IV hydralazine and IV labetalol. Currently her blood pressure 160/60 Labs showing mild leukocytosis of 11 K, elevated d-dimer at 1.06, sodium 129, creatinine normal at 0.6,, serial troponin less than 0.012 x3. Lipase is slightly elevated at 575 EKG showing normal sinus rhythm at [address]-T changes. and emergency room she received IV hydralazine and IV labetalol and IV Ativan, also she refuses 1 dose of IV morphine. She received 1 L of normal saline. 03/14/2020 Patient is awake and alert with no chest pain or dyspnea. No new complaints. Patient still have some postural symptoms especially when she stands up. Yesterday and today we checked her orthostatic vitals and she has orthostatic hypotension, patient was started on normal saline 100 mL per hour yesterday with some improvement today but not complete resolution. Hydralazine was increased from 50-75 mg 3 times a day and her blood pressure is slightly better today 147/60 Patient has urinary retention, needed straight cath, urine analysis was suspicious for infection and ceftriaxone was added, pending urine culture. She had mild leukocytosis which is improved today. Start the patient on Flomax Patient is planned for cardiac cath tomorrow Vascular surgery evaluated the patient, no plan for surgical intervention but patient may need carotid endarterectomy as an outpatient as per surgery team recommendation Hyponatremia is improving D-dimer is elevated but perfusion scan is negative and low probability for PE, chest x-ray is unremarkable, suspicion for PE is very low. Patient refused CTA of the chest for risk of contrast-induced nephropathy 03/15/2020 Patient postural symptoms are significantly improved, she tried to get up during the night couple times with only some postural dizziness a little bit and brief which is much improved compared to when she came in she could not stand up. No shortness of breath or leg edema. Hemodynamically stable on blood pressure is 125/63-155/79. Patient is going for cardiac cath today. Sodium improved to 135 and CBC is unremarkable. Urine culture still pending She's normal saline and we will lower the right from 100 down to 50 mL per hour Objective - Vital Signs Vital signs: Vital Signs Temp 98.0 F 03/15/20 04:17 Pulse 91 03/15/20 04:17 Resp 18 03/15/20 04:17 BP 155/79 03/15/20 04:17 Pulse Ox 95 03/15/20 04:17 Intake & Output 03/14/20 03/15/20 03/15/20 18:59 06:59 18:59 Intake Total 1090 1240 Output Total 2400 1950 Balance -1310 -710 Intake: IV 850 Sodium Chloride 0.9% 1, 800 000 ml @ 100 mls/hr IV . Q10H CASTRO Rx#:[id number] cefTRIAXone 1 gm In 50 Sodium Chloride 0.9% 50 ml @ 100 mls/hr IVPB Q24HR CASTRO Rx#:[id number] Intake, IV Titration 1000 Amount Sodium Chloride 0.9% 1, 1000 000 ml @ 100 mls/hr IV . Q10H CASTRO Rx#:[id number] Oral 240 240 Output: Urine 2400 1950 Other: Voiding Method Bedside Commode Bedside Commode - Exam GENERAL: The patient is alert and oriented x3, not in any acute distress. Well developed, well nourished. HEENT: Pupils are round and equally reacting to light. EOMI. No scleral icterus. No conjunctival pallor. Normocephalic, atraumatic. No pharyngeal erythema. No thyromegaly. CARDIOVASCULAR: S1 and S2 present. No murmurs, rubs, or gallops. PULMONARY: Chest is clear to auscultation, no wheezing or crackles. ABDOMEN: Soft, nontender, nondistended, normoactive bowel sounds. No palpable organomegaly. MUSCULOSKELETAL: No joint swelling or deformity. EXTREMITIES: No cyanosis, clubbing, or pedal edema. NEUROLOGICAL: Gross neurological examination did not reveal any focal deficits. SKIN: No rashes. no petechiae. - Labs CBC & Chem 7: 03/15/20 05:48 03/15/20 05:48 Labs: Abnormal Lab Results - Last 24 Hours (Table) 03/15/20 Range/Units 05:48 Sodium 135 L (137-145) mmol/L BUN 21 H (7-17) mg/dL Microbiology - Last 24 Hours (Table) 03/13/20 22:11 Urine Culture - Preliminary Urine,Voided Assessment and Plan Assessment: chest pain, rule out cardiac causes elevated d-dimer, with low probability V/Q scan for PE Urinary retention and possible acute urinary tract infection permissive hypertension , with urgency upon admission Mild hyponatremia Abdominal aortic narrowing with possible thrombosis , no need for anticoagulation as per per previous recommendation by vascular surgery Left internal carotid artery stenosis by 80%, no need for surgical intervention as per previous recommendation by vascular surgery as well Emphysema, not an active issue Plan: this is a pleasant 64 years old female who presents with chest pain and hypertension, with positive troponin, cardiology consult. Continue with antihypertensive medication and follow blood pressure closely, Follow-up vascular surgery team recommendation. Cardiac cath on 03/15. Continue with bladder scan and ceftriaxone follow-up urine culture Labs and medication were reviewed.. Continue same treatment. Continue with symptomatic treatment. Resume home medication. Monitor lytes and vitals. DVT and GI prophylaxis. Further recommendations of the clinical course of the patient DVT prophylaxis: Subcutaneous heparin GI Prophylaxis: Pepcid Prognosis is guarded
[2020-03-15] MEDS: HEPARIN SODIUM,PORCINE 5,000 UNIT/ML 1 ML VIAL SQ SCH ×2 (09:59→20:51)
[2020-03-15] MEDS: FAMOTIDINE 20 MG/2 ML VIAL IV SCH (09:59)
[2020-03-15] MEDS: SPIRONOLACTONE 25 MG TAB PO SCH (10:16)
[2020-03-15] MEDS: lisinopriL 20 MG TAB PO SCH ×2 (10:16→20:51)
[2020-03-15] MEDS: VENLAFAXINE HCL 50 MG TAB PO SCH ×2 (10:17→21:14)
[2020-03-15 11:21] LABS: Appearance,Urine Clear (Clear); Bilirubin,Urine Negative (Negative); Blood,Urine Negative (Negative); Color,Urine Light Yellow; Glucose,Urine (UA) Negative (Negative); Ketones,Urine Negative (Negative); Leukocyte Esterase,Urine Negative (Negative); Nitrite,Urine Negative (Negative); PH, Urine 6.5 (5.0-8.0); Protein,Urine Negative (Negative); Specific Gravity,Urine 1.007 (1.001-1.035); Urobilinogen,Urine <2.0 mg/dL (<2.0)
[2020-03-15] MEDS ORDERED: IV FLUID CONTINUATION 1,000 ML IV ONE (12:15)
--- NOTE | 2020-03-15 12:20 | P.PN ---
Subjective Progress Note Date: 03/15/20 Principal diagnosis: Severe hypertension, chest pain Patient was seen and examined at the bedside. There were no acute changes through the night. She denies any chest pain or shortness of breath. She denies any rest pain or pain in the lower extremities. She is scheduled to have a cardiac catheterization today. Blood pressure is controlled. Objective - Vital Signs Vital signs: Vital Signs Temp 97.8 F 03/15/20 08:12 Pulse 86 03/15/20 09:00 Resp 16 03/15/20 09:00 BP 125/58 03/15/20 08:12 Pulse Ox 96 03/15/20 08:12 Intake & Output 03/14/20 03/15/20 03/15/20 18:59 06:59 18:59 Intake Total 1090 1240 Output Total 2400 1950 Balance -1310 -710 Intake: IV 850 Sodium Chloride 0.9% 1, 800 000 ml @ 100 mls/hr IV . Q10H CASTRO Rx#:[id number] cefTRIAXone 1 gm In 50 Sodium Chloride 0.9% 50 ml @ 100 mls/hr IVPB Q24HR CASTRO Rx#:[id number] Intake, IV Titration 1000 Amount Sodium Chloride 0.9% 1, 1000 000 ml @ 100 mls/hr IV . Q10H CASTRO Rx#:[id number] Oral 240 240 Output: Urine 2400 1950 Other: Voiding Method Bedside Commode Bedside Commode Bedside Commode - Exam The patient is a pleasant cooperative female in no acute distress. HEENT is normocephalic, atraumatic, excellent motion intact. Heart is regular in rate and rhythm. Lungs are clear bilaterally. Abdomen is soft nontender and nondistended. Extremity show no clubbing, cyanosis or edema. She has a palpable left radial pulse, a mildly weakened a right radial pulse. She had nonpalpable femoral pulses. Nonpalpable pedal pulses. Delayed capillary re fill. No wounds. Normal mood and affect. Cranial nerves II through XII grossly intact - Labs CBC & Chem 7: 03/15/20 05:48 03/15/20 05:48 Labs: Abnormal Lab Results - Last 24 Hours (Table) 03/15/20 Range/Units 05:48 Sodium 135 L (137-145) mmol/L BUN 21 H (7-17) mg/dL Microbiology - Last 24 Hours (Table) 03/13/20 22:11 Urine Culture - Final Urine,Voided Assessment and Plan Assessment: #1 severe hypertension #2 chest pain #3 high-grade left internal carotid artery stenosis #4 right subclavian high-grade stenosis versus occlusion #5 significant peripheral arterial disease, likely aortoiliac Plan: I discussed the patient and findings with Dr. Short. At this point the patient continues to be worked up for cardiac clearance for her future carotid endarterectomy. She has significant arterial disease throughout. Per notes, cardiology is planning to do a heart catheterization today and was asked by Dr. Short, if stable for them to obtain an arteriogram with runoffs at that time if not artery utilizing significant contrast for future planning of the lower extremities. Further recommendations to follow. The above dictated assessment and findings were discussed with Dr. Short. The impression and plan of care have been directed as dictated.
[2020-03-15] MEDS ORDERED: fentaNYL (PF) 50 MCG/ML 2 ML AMP IV ONE (12:21)
[2020-03-15] MEDS ORDERED: LIDOCAINE 1% INJ 10MG/ML (20 ML MDV) SQ ONE (12:25)
[2020-03-15] MEDS ORDERED: MIDAZOLAM 2 MG/2 ML VIAL IV ONE (12:26)
[2020-03-15] MEDS ORDERED: VERAPAMIL SYRINGE (5 MG/10 ML) INTRAARTER ONE (12:28)
[2020-03-15] MEDS ORDERED: IOPAMIDOL-370 125ML BTL INJ ONE (12:54)
[2020-03-15] MEDS ORDERED: IOPAMIDOL-250 100ML BTL INTRAARTER ONE (12:55)
[2020-03-15] MEDS ORDERED: RX INFO: IV CONTRAST WAS GIVEN 1 EACH MISC MISCELLANE PRN (12:57)
[2020-03-15] MEDS ORDERED: SODIUM CHLORIDE 0.9% 1,000 ML IV SCH (13:00)
--- NOTE | 2020-03-15 15:51 | IR ---
Fluoroscopy HISTORY: Pain bilateral legs 5.5 minutes fluoroscopy time supplied to the referring clinician. 190 intraoperative C-arm images do cument the procedure. See dictated report from vascular surgery.
--- NOTE | 2020-03-15 16:15 | P.CARDCATH ---
Date of Procedure: 03/15/20 Preoperative Diagnosis: Peripheral arterial disease Postoperative Diagnosis: Same Anesthesia: local Description of Procedure: Procedures performed: Abdominal angiography with bilateral lower extremity runoff, TR band placement. Indications: Peripheral arterial disease, decreased ABIs bilaterally. History: Patient is a pleasant 64-year-old female with a history of uncontrolled hypertension, right subclavian artery stenosis, left carotid artery stenosis, and atypical chest pain who has had multiple admissions over the last few weeks secondary to uncontrolled hypertension, lightheadedness and chest pain. She has had workup previously that showed carotid artery stenosis and subclavian stenosis and is being evaluated for possible surgery. She additionally was found to have decreased ABIs bilaterally and does note bilateral pain with walking in her calfs. She was recommended to have a left heart catheterization performed and I was asked to perform a abdominal angiogram with runoff by her primary oyster fisherman, Dr. Matos. Description of procedure: After the above-mentioned procedures were explained in detail to the patient, informed consent was obtained. Patient had a left heart catheterization performed by the left radial approach by Dr Matos. See his report for full details. The sheath was left in place. Next a 6 Greek angled pigtail was advanced to the abdominal aorta under fluoroscopy. Abdominal angiography at the level of the kidneys with bilateral lower extremity runoff was performed using DSA imaging. The catheter was then removed and a tear gland was placed on the left wrist with hemostasis achieved. Patient tolerated the procedure well. Abdominal angiography: Abdominal aorta: The infrarenal aorta has a 100% stenosis 4-5 cm below the right renal artery. There is a large wandering artery of Elsa which gives off collaterals to the right external iliac artery. There is no opacification of the left external iliac. There is a possibility that collaterals to the left, more superiorly however no collaterals are seen. There is no significant stenosis of the right renal artery noted. There is an accessory left renal artery and no significant stenosis noted. The right external iliac, femoral artery, SFA, popliteal all appear normal without significant stenosis. There is 3 vessel runoff below the knee. There is poor visualization of the left external iliac with a network of collaterals noted in the pelvis. There is no flow to the left femoral, SFA or below the knee. Conclusions: 1. Severe peripheral arterial disease with 100% stenosis of the infrarenal aorta. No significant disease seen of the right lower extremity with 3 vessel runoff. Poor visualization of the left lower extremity which may be related to severe disease or collaterals more cephalad. 2. No significant renal artery stenosis identified. Plan: Multidisciplinary approach with vascular surgery with multiple issues including severe peripheral arterial disease of the aorta, subclavian and carotid. Continue with high intensity statin and aspirin.
--- NOTE | 2020-03-15 18:47 | CC ---
CARDIAC CATHETERIZATION REPORT DATE OF PROCEDURE: 03/15/2020 Mrs. Bustamante is a 64-year-old female with known history of peripheral vascular disease, history of hypertension, hyperlipidemia, who presented with symptoms of chest discomfort with no enzymatic changes. She was evaluated by Dr. Hedrick and recommendation was made regarding cardiac catheterization. The procedure, its risks and complications were discussed with the patient, who was in full understanding and agreement. PROCEDURE DESCRIPTION: The patient was brought to the director geophysical laboratory in a fasting, semi-sedated state after receiving fentanyl and Benadryl and achieving a moderate conscious sedated state. Using Xylocaine anesthesia and Seldinger technique, a 6-Kyrgyz sheath was introduced in the left radial artery. Selective right and left coronary angiography was performed using 5-Kyrgyz 4 bend, right and left [place] catheters. Multiple views were taken of the coronary arteries, including hemiaxial views. Following that, a 6-Kyrgyz tight pigtail catheter was introduced in the left ventricle and pressures were calculated. Following that, the pigtail catheter was advanced into the descending aorta and Dr. Spears proceeded to obtain aortogram and runoff. Of note, the patient received 3500 units of intravenous heparin as well as intra-arterial verapamil. There was no immediate complication. The sheath was removed after finishing the runoff and a pigtail was placed. FINDINGS: LEFT MAIN: This is a short-sized vessel bifurcating into left circumflex and left anterior descending artery. The left main coronary artery has no evidence of high-grade stenosis. LEFT ANTERIOR DESCENDING ARTERY: This is a large-sized vessel giving rise to a large diagonal branch proximally. The left anterior descending artery tapers down in the distal third. It has 20% to 30% plaque in the mid segment. The rest of the vessel has no high-grade stenosis. LEFT CIRCUMFLEX: This is a large codominant vessel giving rise to a large obtuse marginal branch, distally bifurcating PDA and posterolateral segment and branches. The left circumflex obtuse marginal branch has a 20% to 30% plaque. The rest of the vessel has no high-grade stenosis. RIGHT CORONARY ARTERY: This is a codominant vessel bifurcating distally into PDA and posterolateral segment and branches. The right coronary artery in mid segment has a tubular lesion of about 40% to 50%. The rest of the vessel has no high-grade stenosis. LEFT VENTRICULOGRAM: Not performed. HEMODYNAMICS: There was no gradient across the aortic valve. The left ventricular end- diastolic pressure was 16-18 mmHg. CONCLUSION: 1. Mild to moderate triple-vessel coronary artery disease. 2. Mildly elevated left ventricular end-diastolic pressure. RECOMMENDATIONS: In view of findings and anatomy, I recommend continuing medical therapy with the aggressive coronary risk modifications that have been initiated. Those findings and recommendations were discussed with the patient and her family, and they are in full understanding and agreement. Duration of sedation was 20 minutes. MMODL / IJN: [id number] /
--- NOTE | 2020-03-15 18:53 | LTR ---
March 15, 2020 To: Dr. Beena Doherty. Regarding: Tracy Bustamante (53) Dear Dr. Doherty, I had the pleasure of performing cardiac catheterization on Mrs. Bustamante at [facility] on March 15, 2020, and a full copy of the procedure note will be forwarded to you. In brief, she was found to have mild to moderate triple-vessel coronary artery disease with severe peripheral vascular disease. At this time, from the cardiac standpoint, I will continue medical therapy with the aggressive coronary risk factor modifications that have been initiated. Thank you again for allowing me to participate in her care. Please feel free to call with any questions. Sincerely yours, Patria Matos M.D. ANGELES / KOLBY: [id number] /
[2020-03-15] MEDS: FAMOTIDINE 20 MG TAB PO SCH (20:52)
[2020-03-16] MEDS: carvediloL 3.125 MG TAB PO SCH ×2 (06:34→17:49)
[2020-03-16 06:41] LABS: African American GFR (CKD) >90 (>60 ml/min/1.73 sqM); Anion Gap 8 mmol/L; Blood Urea Nitrogen 22 mg/dL (7-17); Calcium 9.4 mg/dL (8.4-10.2); Carbon Dioxide 24 mmol/L (22-30); Chloride 102 mmol/L (98-107); Glucose 94 mg/dL (74-99); Non-African American GFR(CKD) 84 (>60 ml/min/1.73 sqM); Sodium 134 mmol/L (137-145)
[2020-03-16] MEDS: SODIUM CHLORIDE 0.9% 1,000 ML IV SCH (08:12)
[2020-03-16] MEDS: HEPARIN SODIUM,PORCINE 5,000 UNIT/ML 1 ML VIAL SQ SCH (08:20)
[2020-03-16] MEDS: ASPIRIN 81 MG PO SCH (08:20)
[2020-03-16] MEDS: TAMSULOSIN 0.4 MG CAP.ER.24H PO SCH (08:20)
[2020-03-16] MEDS: ISOSORBIDE MONONITRATE ER 30 MG TAB.ER.24H PO SCH (08:20)
[2020-03-16] MEDS: lisinopriL 20 MG TAB PO SCH (08:20)
[2020-03-16] MEDS: hydrALAZINE HCL 25 MG TAB PO SCH ×2 (08:21→17:49)
[2020-03-16] MEDS: FAMOTIDINE 20 MG TAB PO SCH (08:21)
[2020-03-16] MEDS: ATORVASTATIN 80 MG TAB PO SCH (08:21)
[2020-03-16] MEDS: SPIRONOLACTONE 25 MG TAB PO SCH (08:21)
[2020-03-16] MEDS: amLODIPine 5 MG TAB PO SCH (08:21)
[2020-03-16] MEDS: VENLAFAXINE HCL 50 MG TAB PO SCH (08:21)
[2020-03-16] MEDS ORDERED: SODIUM CHLORIDE 0.9% 500 ML 500 ML IV ONE (09:03)
[2020-03-16 11:02] VITALS: RESP 16
--- NOTE | 2020-03-16 11:15 | P.PN ---
Subjective Progress Note Date: 03/16/20 HISTORY OF PRESENTING ILLNESS Patient seen and examined. Patient admits that since her prior hospitalization her lightheadedness has improved greatly and she is able to ambulate with physical therapy and only mild lightheadedness. She had a left heart catheterization performed yesterday from the left radial approach. She was found to have mild to moderate nonobstructive coronary artery disease. Addit ionally she had a abdominal aortogram with runoff which showed occluded infrarenal aorta with collaterals. Her chest pain today is somewhat improved. Blood pressures of the mildly elevated at 159/68 however she has needed some permissive hypertension or rales become symptomatic with her carotid stenosis and subclavian stenosis. REVIEW OF SYSTEMS At the time of my exam: CONSTITUTIONAL: Denies fever or chills. CARDIOVASCULAR: Improved chest pain, no shortness of breath, orthopnea, PND or palpitations. RESPIRATORY: Denies cough. GASTROINTESTINAL: + Chronic abdominal pain, no diarrhea, constipation, nausea or vomiting. MUSCULOSKELETAL: Denies myalgias. NEUROLOGIC: Denies numbness, tingling or weakness. ENDOCRINE: Denies fatigue, weight change, polydipsia or polyurina. GENITOURINARY: Denies burning, hematuria or urgency with micturation. HEMATOLOGIC: Denies history of anemia or bleeding. PHYSICAL EXAMINATION Blood pressure 159/68 heart rate 87 afebrile and maintaining oxygen saturation on room air. CONSTITUTIONAL: No apparent distress. HEENT: Head is normocephalic. Pupils are equal, round. Sclerae anicteric. Mucous membranes of the mouth are moist. No JVD. + Bilateral carotid bruit. CHEST EXAMINATION: Lungs are clear to auscultation. No chest wall tenderness is noted on palpation or with deep breathing. HEART EXAMINATION: Regular rate and rhythm. S1, S2 heard. No murmurs, gallops or rub. ABDOMEN: Soft, nontender. Positive bowel sounds. EXTREMITIES: no lower extremity edema and no calf tenderness. NEUROLOGIC EXAMINATION: Patient is awake, alert and oriented x3. ASSESSMENT 1. Atypical chest pain with prior negative stress test and left Heart catheterization performed yesterday showing mild to moderate diffuse nonobstructive coronary artery disease 2. Severe peripheral arterial disease with left carotid, right subclavian and infrarenal abdominal aorta occluded. 3. Lightheadedness, likely multifactorial however component of bilateral stenosis with right subclavian and left carotid disease. Overall has improved with mild permissive hypertension. 4. Essential hypertension, mildly elevated. Abdominal angiogram yesterday showed no significant renal artery stenosis 5. Hyponatremia PLAN Patient's chest pain appears noncardiac in nature with normal stress test recently and mild to moderate nonobstructive diffuse coronary artery disease. Continue with aggressive risk factor modification, statin, and regulation of blood pressure. Continue with permissive hypertension given bilateral occlusive disease which causes severe lightheadedness previously. Patient does have severe peripheral arterial disease with abdominal angiogram showing infrarenal aortic occlusion without much disease on the right lower extremity however no collaterals seen on the left. There may be collaterals from higher up that were just not visualized however endovascular approach would be complex. Defer to vascular surgery for definitive treatment of her carotid and subclavian. Patient cleared from a cardiac standpoint for carotid intervention. No further cardiac workup at this time as an inpatient. Patient may be discharged from a cardiology standpoint however defer to vascular surgery for treatment and planning of her carotid Objective - Vital Signs Vital signs: Vital Signs Temp 97.7 F 03/16/20 09:00 Pulse 87 03/16/20 09:00 Resp 16 03/16/20 09:00 BP 159/68 03/16/20 09:00 Pulse Ox 95 03/16/20 09:00 Intake & Output 03/15/20 03/16/20 03/16/20 18:59 06:59 18:59 Intake Total 1395 720 Output Total 650 Balance 745 720 Intake: IV 150 Intake, IV Titration 1245 Amount Sodium Chloride 0.9% 1, 525 000 ml @ 75 mls/hr IV . [id number] CASTRO Rx#:[id number] cefTRIAXone 1 gm In 720 Sodium Chloride 0.9% 50 ml @ 100 mls/hr IVPB Q24HR CASTRO Rx#:[id number] Oral 720 Output: Urine 650 Other: Voiding Method Bedside Commode Bedside Commode Bedside Commode # Voids 1 - Labs CBC & Chem 7: 03/15/20 05:48 03/16/20 06:00 Labs: Abnormal Lab Results - Last 24 Hours (Table) 03/16/20 Range/Units 06:00 Sodium 134 L (137-145) mmol/L BUN 22 H (7-17) mg/dL Microbiology - Last 24 Hours (Table) 03/13/20 22:11 Urine Culture - Final Urine,Voided
--- NOTE | 2020-03-16 13:22 | P.PN ---
Subjective Progress Note Date: 03/16/20 Principal diagnosis: Severe hypertension, chest pain The Patient is seen and examined at the bedside. She appears comfortable in no acute distress. She denies any shortness of breath or chest pain. She underwent a cardiac catheterization yesterday with Dr. Matos which revealed mild to moderate triple-vessel coronary artery disease and mildly elevated left ventricular end-diastolic pressure. He recommended continuing medical therapy with the aggressive coronary risk modifications that have been initiated. Dr. Short had also asked for cardiology to perform angiography with bilateral lower extremities while the patient was having her cardiac catheterization. / Aylin shabazz performed an abdominal angiography with bilateral lower extremity runoff which showed severe peripheral arterial disease with 100% stenosis of the infrarenal aorta. No significant disease seen of the right lower extremity with three-vessel runoff. Poor visualization of the left lower extremity which may be related to severe disease or collaterals more cephalad. There was no significant renal artery stenosis identified. Objective - Vital Signs Vital signs: Vital Signs Temp 97.7 F 03/16/20 09:00 Pulse 87 03/16/20 09:00 Resp 16 03/16/20 09:00 BP 159/68 03/16/20 09:00 Pulse Ox 95 03/16/20 09:00 Intake & Output 03/15/20 03/16/20 03/16/20 18:59 06:59 18:59 Intake Total 1395 720 Output Total 650 Balance 745 720 Intake: IV 150 Intake, IV Titration 1245 Amount Sodium Chloride 0.9% 1, 525 000 ml @ 75 mls/hr IV . [id number] CASTRO Rx#:[id number] cefTRIAXone 1 gm In 720 Sodium Chloride 0.9% 50 ml @ 100 mls/hr IVPB Q24HR CASTRO Rx#:[id number] Oral 720 Output: Urine 650 Other: Voiding Method Bedside Commode Bedside Commode Bedside Commode # Voids 1 - Exam The patient is a pleasant cooperative female in no acute distress. HEENT is normocephalic, atraumatic, excellent motion intact. Heart is regular in rate and rhythm. Lungs are clear bilaterally. Abdomen is soft nontender and nondistended. Extremity show no clubbing, cyanosis or edema. She has a palpable left radial pulse, a mildly weakened a right radial pulse. She had nonpalpable femoral pulses. Nonpalpable pedal pulses. Delayed capillary refill. No wounds. Normal mood and affect. Cranial nerves II through XII grossly intact. Left radial arterial site with pressure dressing. - Labs CBC & Chem 7: 03/15/20 05:48 03/16/20 06:00 Labs: Abnormal Lab Results - Last 24 Hours (Table) 03/16/20 Range/Units 06:00 Sodium 134 L (137-145) mmol/L BUN 22 H (7-17) mg/dL Microbiology - Last 24 Hours (Table) 03/13/20 22:11 Urine Culture - Final Urine,Voided Assessment and Plan Assessment: #1 severe hypertension #2 chest pain #3 high-grade left internal carotid artery stenosis #4 right subclavian high-grade stenosis versus occlusion #5 significant peripheral arterial disease, likely aortoiliac Plan: I discussed the findings of the cardiac catheterization and abdominal angiography with bilateral lower extremity runoff results with Dr. Short. The patient may be discharged home once medically stable. The patient is to follow- up with Dr. Short and likely will be scheduled next Sunday for her carotid endarterectomy. Further recommendations to follow. The above dictated assessment and findings were discussed with Dr. Short. The impression and plan of care have been directed as dictated.
[2020-03-16 16:01] VITALS: BP 143/59; PULSE 96; TEMP 97.6
--- NOTE | 2020-03-16 22:39 | P.DS ---
Providers Date of admission: 03/13/20 15:39 Attending physician: Abram Jackson Consults: 03/13/20 01:15 Consult Physician Routine Consulting Provider: Tracy Short Consult Reason/Comments: known Do you want consulting provider notified?: Yes Consult Physician Urgent Consulting Provider: Patria Matos Consult Reason/Comments: cp,clear Do you want consulting provider notified?: Yes Primary care physician: Beena Doherty [place] [facility] Course: Diagnoses: chest pain, cardiac cath showing mild to moderate triple-vessel coronary artery disease, continue with medical treatment and cleared by cardiology for discharge elevated d-dimer, with low probability V/Q scan for PE Orthostatic hypotension Left internal carotid artery stenosis by 80%, no need for surgical intervention as per previous recommendation by vascular surgery as well 100% stenosis of the infrarenal aorta Urinary retention and possible acute urinary tract infection, completely resolved and repeat UA is negative permissive hypertension , with urgency upon admission Mild hyponatremia Emphysema, not an active issue Hospital course: This is a pleasant 64 years old female with multiple medical problems as below, mainly hypertension, Abdominal aortic narrowing with possible thrombosis, Left internal carotid artery stenosis by 80%,. She is a patient of Dr. Beena do. This is a admission to the hospital in one month, first time she was in the ICU from 02/25-03/02 for uncontrolled hypertension and again for chest pain from 03/06- 03/08 for chest pain and orthostatic hypotension. This time presents because of chest pain , patient evaluated by gravel inspector, she is a status post cardiac catheter showing [id number] triple vessel coronary artery disease, gravel inspector recommended to continue with medical therapy and follow-up as an outpatient, also she had aortogram showing Severe peripheral arterial disease with left carotid, right subclavian and infrarenal abdominal aorta occluded. Vascular surgery evaluated the patient and the plan to call her for endarterectomy in 1 week, possible this coming Sunday. Also patient has discrepancy and measurement between the right and left sides blood pressure, he was placed on several blood pressure medication including Norvasc, Coreg, hydralazine which was increased during this admission to 75 mg 3 times a day, Imdur, lisinopril and Aldactone, blood pressure is better contr olled however patient presents to have postural hypotension which is difficult to control and in view of her peripheral vascular disease despite IV hydration however patient dizziness is significantly improved and physical therapy recommended home with home care, patient is counseled about safe mobility measures and when moving from supine to standing position, daughter was at bedside and patient and daughter agree with the recommendation. Patient improved significantly and on the day of discharge she denies any chest pain or dyspnea, no other complaints, no urinary signs and symptoms and repeat UA is negative and she does not need antibiotics upon discharge Patient was cleared for discharge by cardiology and vascular surgery Problems and management plan were discussed with the patient and he verbalized understanding and acceptance Patient was found stable and can be discharged home in guarded prognosis however she needs follow-up as an outpatient. Patient was instructed to follow up with PCP Dr. Hargrove about within one week and patient agrees. Also patient was instructed to her gravel inspector in 1-2 weeks and with vascular surgery in one week and she agrees to call and make her own appointments. Posterior surgery team are planning to contact her for possible endarterectomy in 1 week. Gen: patient is a AAOx3, no distress CVS: S1-S2, RRR, no murmur Lungs: B/L CTA, no wheezing Abdomen: soft, no distention, no tenderness, positive bowel sounds Extremity: no leg edema or induration Time spent more than 35 minutes Patient Condition at Discharge: Undetermined Plan - Discharge Summary New Discharge Prescriptions: New hydrALAZINE HCL [Apresoline] 75 mg PO TID #90 tab Continue Aspirin EC [Ecotrin Low Dose] 81 mg PO DAILY Venlafaxine HCl [Effexor] 50 mg PO BID Spironolactone [Aldactone] 25 mg PO DAILY #30 tab Atorvastatin [Lipitor] 80 mg PO DAILY #30 tab amLODIPine [Norvasc] 5 mg PO BID #60 tab lisinopriL [Zestril] 20 mg PO BID #60 tab carvediloL [Coreg] 3.125 mg PO AC-BID Isosorbide Mononitrate ER [Imdur] 30 mg PO DAILY #30 tab.er.24h Acetaminophen Tab [Tylenol] 650 mg PO Q6HR PRN tab PRN Reason: Fever and/ or Mild Pain Discontinued hydrALAZINE HCL [Apresoline] 50 mg PO TID #90 tab Discharge Medication List Aspirin EC [Ecotrin Low Dose] 81 mg PO DAILY 02/26/20 [History] Venlafaxine HCl [Effexor] 50 mg PO BID 02/26/20 [History] Atorvastatin [Lipitor] 80 mg PO DAILY #30 tab 03/02/20 [Rx] Spironolactone [Aldactone] 25 mg PO DAILY #30 tab 03/02/20 [Rx] amLODIPine [Norvasc] 5 mg PO BID #60 tab 03/02/20 [Rx] lisinopriL [Zestril] 20 mg PO BID #60 tab 03/02/20 [Rx] carvediloL [Coreg] 3.125 mg PO AC-BID 03/05/20 [History] Acetaminophen Tab [Tylenol] 650 mg PO Q6HR PRN tab 03/08/20 [Rx] Isosorbide Mononitrate ER [Imdur] 30 mg PO DAILY #30 tab.er.24h 03/08/20 [Rx] hydrALAZINE HCL [Apresoline] 75 mg PO TID #90 tab 03/16/20 [Rx] Follow up Appointment(s)/Referral(s): Beena oDherty MD [Primary Care Provider] - 1-2 days
--- NOTE | 2020-03-17 10:14 | P.ARTDOP ---
Arterial Doppler LOWER EXTREMITY ARTERIAL DOPPLER: DATE OF SERVICE: 03/13/2020 Reason for study: Bilateral decreased pulses. Doppler waveforms: Atypical bilaterally throughout with poor toe waveforms on the right. Pulse volume recording: []. Pressure gradients: Above the low thigh bilaterally. Ankle-brachial indices: 0.22 on the right and 0.29 on the left. Toe brachial indices: No waveform on the right, 0.14 on the left Impression: Severe bilateral iliofemoral occlusive disease. Vascular surgery consult in process..
== END 2020-03-16 18:40 | disposition home or self-care (01) | DRG 287 ==
LOC: EC 23:57 → 3NCARDOBS 03-13 01:16 → OBSVTOIN 03-13 15:39
PROVIDERS: ADMIT Hospitalist; ATTEND Hospitalist
PROC: 4A023N7 Measurement of Cardiac Sampling and Pressure, Left Heart, Percutaneous Approach (ICD-10-PCS; principal; 2020-03-13)
PROC: B2111ZZ Fluoroscopy of Multiple Coronary Arteries using Low Osmolar Contrast (ICD-10-PCS; principal; 2020-03-13)
PROC: B41D1ZZ Fluoroscopy of Aorta and Bilateral Lower Extremity Arteries using Low Osmolar Contrast (ICD-10-PCS; 2020-03-13)
DX: R07.89 Other chest pain (principal); E87.1 Hypo-osmolality and hyponatremia; N39.0 Urinary tract infection, site not specified; I16.0 Hypertensive urgency; I25.10 Atherosclerotic heart disease of native coronary artery without angina pectoris; D72.829 Elevated white blood cell count, unspecified; F41.9 Anxiety disorder, unspecified; I10 Essential (primary) hypertension; I65.22 Occlusion and stenosis of left carotid artery; I95.1 Orthostatic hypotension; J43.9 Emphysema, unspecified; R79.89 Other specified abnormal findings of blood chemistry; R33.9 Retention of urine, unspecified; I70.0 Atherosclerosis of aorta; I70.8 Atherosclerosis of other arteries; Z79.82 Long term (current) use of aspirin; Z79.899 Other long term (current) drug therapy; Z87.891 Personal history of nicotine dependence; Z88.0 Allergy status to penicillin; Z88.8 Allergy status to other drugs, medicaments and biological substances; Z90.89 Acquired absence of other organs; Z98.890 Other specified postprocedural states
CPT/HCPCS: 36415; 71045; 75625; 75716; 78582; 80048; 80053; 81001; 81003; 83690; 83735; 83880; 84484; 85025; 85379; 85610; 85730; 87086; 93005; 93458; 93923; 96374; 96375; 99285

== ENCOUNTER 2020-03-23 09:40 | Inpatient (IN) | payer MEDICARE ==
[2020-03-18 11:16] VITALS: BMI 23.7
[~2020-03-23 09:40] MED LIST: HYDROmorphone 0.5 MG/0.5 ML SYRINGE IVP PRN; LIDOCAINE 1% (10MG/ML) FOR IV START INTRADERMA PRN; MIDAZOLAM 2 MG/2 ML VIAL IV PRN; fentaNYL (PF) 50 MCG/ML 2 ML AMP IVP PRN
[2020-03-23] MEDS: LACTATED RINGERS 1,000 ML IV SCH ×3 (12:15→23:31)
[2020-03-23] MEDS: DEXAMETHASONE SOD PHOSPHATE 10 MG/ML 1 ML VIAL IV ONE ×2 (12:26→18:38)
[2020-03-23] MEDS: ONDANSETRON 4 MG/2 ML VIAL IVP ONE ×2 (12:26→18:38)
[2020-03-23] MEDS ORDERED: SCOPOLAMINE 1.5MG/72HR PATCH TRANSDERM ONE (12:32)
[2020-03-23] MEDS ORDERED: CLINDAMYCIN 600 MG in SODIUM CHLORIDE 0.9% IRRIGATIO 250 ML IRRIGATION ONE (13:36)
[2020-03-23] MEDS ORDERED: NEOSTIGMINE 1 MG/ML 10 ML VIAL ONE (13:40)
[2020-03-23] MEDS ORDERED: LIDOCAINE 1% INJ 10MG/ML (20 ML MDV) ONE (13:40)
[2020-03-23] MEDS ORDERED: PROPOFOL 10 MG/ML 20 ML VIAL IV ONE (13:40)
[2020-03-23] MEDS ORDERED: hydrALAZINE HCL 20 MG/ML 1 ML VIAL ONE (13:40)
[2020-03-23] MEDS ORDERED: NITROGLYCERIN-D5W PMX 50 MG/250 ML BOTTLE IV ONE (13:40)
[2020-03-23] MEDS ORDERED: ROCURONIUM BROMIDE 10 MG/ML 5 ML VIAL IV ONE (13:40)
[2020-03-23] MEDS ORDERED: PROTAMINE SULFATE 10 MG/ML 5 ML VIAL IV ONE (13:40)
[2020-03-23] MEDS ORDERED: PHENYLEPHRINE-0.9% NACL SYG 1 MG/10 ML SYRINGE ONE (13:40)
[2020-03-23] MEDS ORDERED: HEPARIN SODIUM,PORCINE 5,000 UNIT/ML 1 ML VIAL ONE (13:40)
[2020-03-23] MEDS ORDERED: fentaNYL (PF) 50 MCG/ML 2 ML AMP ONE (13:40)
[2020-03-23] MEDS ORDERED: GLYCOPYRROLATE 0.2 MG/ML 2 ML VIAL ONE (13:40)
[2020-03-23] MEDS ORDERED: SODIUM CHLORIDE 0.9% 50 ML with CLINDAMYCIN 600 MG IV ONE ×2 (13:50)
[2020-03-23] MEDS ORDERED: LIDOCAINE 1% INJ 10MG/ML (20 ML MDV) SQ ONE ×2 (14:25→16:16)
[2020-03-23] MEDS ORDERED: HEPARIN SODIUM (1,000 UNIT/ML) 2,000 UNIT in SODIUM CHLORIDE 0.9% 1,000 ML IRRIGATION ONE (14:31)
[2020-03-23] MEDS ORDERED: LACTATED RINGERS 1,000 ML IV ONE (16:07)
[2020-03-23] MEDS ORDERED: BENZOCAINE/MENTHOL LOZENG 1 EACH LOZENGE MUCOUS MEM PRN (17:13)
[2020-03-23] MEDS ORDERED: MORPHINE SULFATE 2 MG/ML SYRINGE IVP PRN (17:13)
[2020-03-23] MEDS ORDERED: MAG HYDROX/AL HYDROX/SIMETH 30 ML CUP PO PRN (17:13)
[2020-03-23] MEDS ORDERED: ACETAMINOPHEN TAB 325 MG TAB PO PRN (17:13)
[2020-03-23] MEDS ORDERED: TRIMETHOBENZAMIDE 100 MG/ML 2 ML VIAL IM PRN (17:13)
--- NOTE | 2020-03-23 17:13 | P.OP ---
Date of Procedure: 03/23/20 Description of Procedure: Preoperative Diagnosis: [High-grade left] Internal carotid artery stenosis Postoperative Diagnosis: Same Procedure: [Left] carotid endarterectomy with patch angioplasty Anesthesia: GET Surgeon: Tracy Short DO Estimated Blood Loss (ml): [75 mL] IV Fluids: [See records] Urine Output: [150 mL] Specimen: [Carotid plaque] Condition: stable Disposition: PACU Findings and indications: [The patient is a 64-year-old female with high-grade focal left internal carotid artery stenosis who also has significant hypertension, right subclavian occlusion and aortobiiliac occlusive disease. She has had multiple bouts of hospitalizations due to hypertensive emergencies. She recently was able to find the proper medication balance and presents today for left carotid endarterectomy] Procedure in detail: After written informed consent was obtained the patient all risks benefits and complications were described the patient is brought to the operative suite and laid in a supine position. The area of the neck was prepped and draped in usual sterile fashion after appropriate anesthetic was performed per the anesthesiologist. A timeout was performed in normal fashion antibiotics were administered prior to incision. An oblique incision was then created just anterior to the sternocleidomastoid musculature with a 10 blade scalpel and dissection was carried down to the carotid sheath. The carotid sheath was then entered after facial vein was located and suture ligated in normal fashion. The common carotid, internal carotid, external carotid and superior thyroid arteries were located and dissected free in a meticulous fashion circumferentially and controlled with vessel loops. Attention was then placed to locating the vagus nerve as well as hypoglossal nerve which were both spared. Once controlled, patient was administered heparin and followed with ACTs for appropriate heparinization. Once ACT was appropriate, the proximal and distal aspects of the dissection were then controlled with vascular clamps. Arteriotomy was then created with 11 blade scalpel and extended with Briones Mondragon scissors. Utilizing pressure tubing stump pressures were obtained and were [30 therefore a shunt was required. A Andrews shunt was utilized and placed first in the internal carotid artery, it was allowed to backbleed prior to placing in the common carotid]. Flow appeared adequate. An endarterectomy was then performed with a Sherman elevator. The plaque was transected proximally and then feathered at the distal aspect of the internal carotid artery and removed. The area was copiously irrigated with heparinized saline and all free debris was removed. A 0.8 x 8 cm bovine pericardial patch was then chosen and patch angioplasty was performed with 6-0 Prolene suture in a running fashion. Prior to last sutures being placed the inflow was released flushing any free debris out of the patch. This was reclamped and the internal carotid artery was released revealing good brisk flow and was once again reclamped. The external carotid and superior thyroid artery were then released followed by the common carotid artery to allow any free debris to be flushed into the external system. Final sutures were placed and secured. Internal carotid artery control was then released. Good pulsatile flow was noted through the patch and a Doppler was utilized demonstrating good brisk flow into the internal, external carotid arteries without any signs of obstruction. Hemostasis was then assured with interrupted sutures of 6-0 Prolene as well as thrombin and Gelfoam. A 10-Anguillan KAILYN drain was then placed in normal fashion and secured with 3-0 nylon suture. The incision was then closed in a multilayer fashion after hemostasis was assured. The skin was then cleansed and dressings were placed. Patient tolerated the procedure well and was following commands and moving all extremities. Patient was then sent to PACU for recovery.
[2020-03-23] MEDS ORDERED: ONDANSETRON 4 MG/2 ML VIAL IVP ONE (17:30)
[2020-03-23] MEDS: PHENYLEPHRINE 40 MG in SODIUM CHLORIDE 0.9% 250 ML IV SCH ×2 (17:40→22:15)
[2020-03-23] MEDS ORDERED: NITROGLYCERIN-D5W PMX 50 MG in DEXTROSE/WATER 1 250ML.BAG IV ONE (17:50)
[2020-03-23 19:35] LABS: Glucose,Whole Blood 129 mg/dL (75-99)
[2020-03-23] MEDS: CLINDAMYCIN 900 MG in DEXTROSE 5% IN WATER 50 ML IVPB SCH ×2 (23:31)
[2020-03-24] MEDS: LACTATED RINGERS 1,000 ML IV SCH ×3 (04:18→19:18)
[2020-03-24 04:38] LABS: Basophils % (A) 0 %; Eosinophils % (A) 0 %; HCT 32.6 % (34.0-46.0); HGB 10.5 gm/dL (11.4-16.0); Lymphocytes # (A) 1.5 k/uL (1.0-4.8); Lymphocytes % (A) 14 %; MCHC 32.3 g/dL (31.0-37.0); MCV 95.8 fL (80.0-100.0); Mean Platelet Volume 7.2; Monocytes # (A) 0.4 k/uL (0-1.0); Monocytes % (A) 4 %; Neutrophils # (A) 8.8 k/uL (1.3-7.7); Neutrophils % (A) 81 %; Platelet Count 295 k/uL (150-450); WBC 10.8 k/uL (3.8-10.6)
[2020-03-24 06:30] LABS: African American GFR (CKD) >90 (>60 ml/min/1.73 sqM); Blood Urea Nitrogen 29 mg/dL (7-17); Calcium 8.6 mg/dL (8.4-10.2); Carbon Dioxide 24 mmol/L (22-30); Chloride 104 mmol/L (98-107); Glucose 118 mg/dL (74-99); Non-African American GFR(CKD) >90 (>60 ml/min/1.73 sqM)
[2020-03-24 07:13] LABS: Anion Gap 7 mmol/L; Sodium 135 mmol/L (137-145)
[2020-03-24 07:25] LABS: Potassium 4.7 mmol/L (3.5-5.1)
[2020-03-24] MEDS ORDERED: hydrALAZINE HCL 25 MG TAB PO SCH (09:00)
[2020-03-24] MEDS: HYDROcodone/APAP 5-325MG 1 EACH TAB PO PRN ×2 (09:04→20:40)
[2020-03-24] MEDS: CLINDAMYCIN 900 MG in DEXTROSE 5% IN WATER 50 ML IVPB SCH ×2 (09:10)
[2020-03-24] MEDS: amLODIPine 5 MG TAB PO SCH ×2 (09:11→20:40)
[2020-03-24] MEDS: ASPIRIN 81 MG PO SCH (09:11)
[2020-03-24] MEDS: CLOPIDOGREL 75 MG TAB PO SCH (09:11)
--- NOTE | 2020-03-24 10:10 | P.CNPUL ---
History of Present Illness Consult date: 03/24/20 Requesting physician: Tracy Short Chief complaint: Left carotid stenosis, status post carotid endarterectomy History of present illness: 64-year-old white female patient with known history of high-grade focal left in ternal carotid artery stenosis, I pretension, right subclavian occlusion, aorto iliac occlusive disease. Patient has had multiple hospitalizations due to hypertensive crisis, acquiring intensive care admissions. On 03/23/2020 patient had elective left carotid endarterectomy with patch angioplasty, patient was admitted to the intensive care unit following her surgery. His postoperative day 1, she is awake and alert, in no acute distress, she is on 2 L of oxygen, with a pulse ox of 93%, systolic blood pressure is ranging from 140-170 numbness of mercury, she has been on and off Omer-Synephrine to maintain systolic blood pressure between 130 to 170. She is on lactated Ringer's at a rate of 80 ML per hour. She is in sinus mechanism, denies any shortness of breath, denies any chest pain, her left neck incision is clean dry and intact, no tracheal deviation, surgical incisions covered with a dressing, KAILYN joint is compressed and draining small amount of sanguinous drainage. Neurologically intact. No acute events overnight. Today's labs reviewed. Review of Systems All systems: negative Constitutional: Denies chills, Denies fever Eyes: denies blurred vision, denies pain Ears, nose, mouth and throat: Denies headache, Denies sore throat Cardiovascular: Denies chest pain, Denies shortness of breath Respiratory: Denies cough Gastrointestinal: Denies abdominal pain, Denies diarrhea, Denies nausea, Denies vomiting Genitourinary: Denies dysuria, Denies hematuria Musculoskeletal: Denies myalgias Integumentary: Denies pruritus, Denies rash Neurological: Denies numbness, Denies weakness Psychiatric: Denies anxiety, Denies depression Endocrine: Denies fatigue, Denies weight change Past Medical History Past Medical History: Coronary Artery Disease (CAD), Hypertension, Vascular Disorder Additional Past Medical History / Comment(s): carotid stenosis, dizziness, recent admission for uncontrolled hypertension & orthostatic hypotension, meds were adjusted, cardiac cath & aortogram were done History of Any Multi-Drug Resistant Organisms: None Reported Past Surgical History: Heart Catheterization, Tonsillectomy Additional Past Surgical History / Comment(s): abdominal laparotomy, fibroid tumor from uterus, fibroid from L breast, cardiac cath done 03-15-20 Past Anesthesia/Blood Transfusion Reactions: Postoperative Nausea & Vomiting (PONV) Smoking Status: Former smoker Medications and Allergies Home Medications Medication Instructions Recorded Confirmed Type Aspirin EC [Ecotrin Low Dose] 81 mg PO DAILY 02/26/20 03/23/20 History Venlafaxine HCl [Effexor] 50 mg PO BID 02/26/20 03/23/20 History Atorvastatin [Lipitor] 80 mg PO DAILY #30 tab 03/02/20 03/23/20 Rx amLODIPine [Norvasc] 5 mg PO BID #60 tab 03/02/20 03/23/20 Rx lisinopriL [Zestril] 20 mg PO BID #60 tab 03/02/20 03/23/20 Rx carvediloL [Coreg] 3.125 mg PO AC-BID 03/05/20 03/23/20 History Acetaminophen Tab [Tylenol] 650 mg PO Q6HR PRN tab 03/08/20 03/23/20 Rx Isosorbide Mononitrate ER [Imdur] 30 mg PO DAILY #30 tab.er.24h 03/08/20 03/23/20 Rx Spironolactone [Aldactone] 25 mg PO DAILY PRN 03/18/20 03/23/20 History hydrALAZINE HCL [Apresoline] 75 mg PO TID PRN 03/18/20 03/23/20 History Allergies Allergy/AdvReac Type Severity Reaction Status Date / Time losartan [From Cozaar] Allergy Itching Verified 03/23/20 11:55 Penicillins Allergy Swelling Verified 03/23/20 11:55 midazolam [From Versed] AdvReac Nausea & Verified 03/23/20 11:55 Vomiting Physical Exam Vitals: Vital Signs Temp Pulse Pulse Resp BP BP Pulse Ox 03/24/20 09:00 70 31 H 93 L 03/24/20 08:30 70 29 H 92 L 03/24/20 08:00 62 20 93 L 03/24/20 07:30 57 L 19 94 L 03/24/20 07:00 57 L 16 93 L 03/24/20 06:30 60 17 93 L 03/24/20 06:00 56 L 14 96 03/24/20 05:30 55 L 19 94 L 03/24/20 05:00 57 L 19 94 L 03/24/20 04:30 57 L 20 93 L 03/24/20 04:00 98.9 F 57 L 13 95 03/24/20 03:30 58 L 18 94 L 03/24/20 03:00 55 L 13 95 03/24/20 02:30 59 L 15 94 L 03/24/20 02:00 59 L 18 94 L 03/24/20 01:30 59 L 17 94 L 03/24/20 01:00 61 18 94 L 03/24/20 00:30 60 19 94 L 03/24/20 00:00 98 F 66 18 93 L 03/23/20 23:30 61 15 96 03/23/20 23:00 62 14 96 03/23/20 22:30 56 L 16 92 L 03/23/20 22:00 65 15 95 03/23/20 21:30 64 18 93 L 03/23/20 21:00 79 14 91 L 03/23/20 20:45 73 18 93 L 03/23/20 20:30 66 16 92 L 03/23/20 20:15 73 17 92 L 03/23/20 20:00 98.6 F 67 20 91 L 03/23/20 19:45 68 18 92 L 03/23/20 19:32 71 16 93 L 03/23/20 18:45 97 F L 60 16 134/59 162/71 99 03/23/20 18:30 57 L 16 129/60 170/53 99 03/23/20 18:15 59 L 16 133/61 169/52 99 03/23/20 18:00 56 L 17 110/56 124/50 99 03/23/20 17:45 58 L 16 178/69 205/75 100 03/23/20 17:30 56 L 17 100/46 127/53 99 03/23/20 17:15 58 L 16 124/60 120/59 98 03/23/20 17:00 60 16 120/52 100/63 98 03/23/20 16:47 97 F L 75 18 125/42 119/40 99 03/23/20 11:51 97.4 F L 98 16 156/71 98 Intake and Output 03/23/20 03/24/20 03/24/20 22:59 06:59 14:59 Intake Total 590.558 672.314 170 Output Total 480 570 Balance 110.558 102.314 170 Intake: IV 590 640 170 Lactated Ringers 1,000 ml 240 640 170 @ 80 mls/hr IV .[id number] CASTRO Rx#:[id number] Intake, IV Titration 0.558 32.314 Amount Phenylephrine 40 mg In 0.558 32.314 Sodium Chloride 0.9% 250 ml @ 1 MCG/KG/MIN 23.089 mls/hr IV .Q11H1M CASTRO Rx# :[id number] Output: Drainage 25 55 Left Neck 25 55 Urine 380 515 Estimated Blood Loss 75 Other: Voiding Method Indwelling Catheter Indwelling Catheter Weight 60.6 kg 62 kg ABP, PAP, CO, CI - Last 8 Hours Arterial Blood Pressure 172/54 Arterial Blood Pressure 143/43 Arterial Blood Pressure 141/39 Arterial Blood Pressure 149/44 Arterial Blood Pressure 133/41 Arterial Blood Pressure 130/40 Arterial Blood Pressure 138/43 Arterial Blood Pressure 147/46 Arterial Blood Pressure 140/46 Arterial Blood Pressure 147/46 Arterial Blood Pressure 138/43 Arterial Blood Pressure 135/42 Arterial Blood Pressure 134/42 Arterial Blood Pressure 147/45 Arterial Blood Pressure 141/44 GENERAL EXAM: Alert, very pleasant, 64-year-old white female, on 2 L of oxygen the pulse ox of 93% comfortable in no apparent distress. HEAD: Normocephalic/atraumatic. EYES: Normal reaction of pupils, equal size. Conjunctiva pink, sclera white. NOSE: Clear with pink turbinates. THROAT: No erythema or exudates. NECK: No masses, no JVD, no thyroid enlargement, no adenopathy. Left oblique neck incision is covered with a surgical dressing, clean dry and intact, KAILYN drain is compressed and draining small amount of sanguinous output, no tracheal deviation incision is soft CHEST: No chest wall deformity. Symmetrical expansion. LUNGS: Equal air entry with no crackles, wheeze, rhonchi or dullness. CVS: Regular rate and rhythm, normal S1 and S2, no gallops, no murmurs, no rubs ABDOMEN: Soft, nontender. No hepatosplenomegaly, normal bowel sounds, no guarding or rigidity. EXTREMITIES: No clubbing, no edema, no cyanosis, 2+ pulses and upper and lower extremities. MUSCULOSKELETAL: Muscle strength and tone normal. SPINE: No scoliosis or deformity SKIN: No rashes CENTRAL NERVOUS SYSTEM: Alert and oriented -3. No focal deficits, tone is normal in all 4 extremities. PSYCHIATRIC: Alert and oriented -3. Appropriate affect. Intact judgment and insight. Results - Laboratory Findings CBC and BMP: 03/24/20 04:20 03/24/20 04:20 Abnormal lab findings: Abnormal Labs 03/23/20 03/24/20 03/24/20 19:33 04:20 04:20 WBC 10.8 H RBC 3.40 L Hgb 10.5 L Hct 32.6 L Neutrophils # 8.8 H Sodium 135 L BUN 29 H Glucose 118 H POC Glucose (mg/dL) 129 H Assessment and Plan Plan: Assessment: #1. High-grade left carotid artery stenosis status post left carotid endarterectomy with patch angioplasty, postoperative day 1 #2. History of hypertension, episodes of hypertensive crisis requiring hospitalization #3. History of right subclavian occlusion and aortobiiliac occlusive disease #4. [id number] triple-vessel coronary artery disease, being medically managed by cardiology #5. History of chronic tobacco use #6. Dyslipidemia Plan: Continue close hemodynamic and neurologic monitoring in the intensive care unit, no acute events overnight, patient is doing very well on postoperative day #1 status post left carotid endarterectomy with patch angioplasty. We'll defer to vascular surgery on the blood pressure medication management. Antibiotics per vascular surgery, patient is tolerating oral diet, no specific complaints, minimal drainage from the KAILYN drain, left neck incision is clean dry and intact, no acute events overnight. I performed a history & physical examination of the patient and discussed their management with my nurse practitioner, Danii Guadarrama. I reviewed the nurse practitioner's note and agree with the documented findings and plan of care. Lung sounds are positive for clear breath sounds. The findings and the impression was discussed with the patient. I attest to the documentation by the nurse practitioner. Time with Patient: Greater than 30
--- NOTE | 2020-03-24 12:17 | P.DS ---
Providers Date of admission: 03/23/20 11:21 Attending physician: Tracy Short DO Consults: 03/23/20 17:13 Consult Physician Routine Consulting Provider: Delia Hedrick Consult Reason/Comments: post cea Do you want consulting provider notified?: Yes 03/23/20 17:19 Consult Physician Routine Consulting Provider: Victorino Harrison Consult Reason/Comments: post op cea, htn Do you want consulting provider notified?: Yes 03/23/20 19:13 Consult Physician Routine Consulting Provider: Fransisco Grady Consult Reason/Comments: ICU MANAGEMENT Do you want consulting provider notified?: Already Contacted Primary care physician: [facility] Hospital Course: This is a 64-year-old female patient with known history of high-grade focal left internal carotid artery stenosis, hypertension, right subclavian occlusion, and aortoiliac occlusive disease. She is status postop day #1 left carotid endarterectomy with patch angioplasty. She has seen and evaluated in the ICU, her vital signs have remained stable. Her blood pressure has been controlled. Her Omer was discontinued this morning. she is tolerating a regular diet. She denies any upper weakness, shortness of breath or chest pain. Assessment: General appearance: The patient is alert, oriented, in no acute distress. HET: Head is normocephalic and atraumatic. Neck: Supple without lymphadenopathy. Trachea midline. Left surgical incision site with dressing clean dry and intact with KAILYN drain with approximately 20 mL of serosanguineous fluid Heart: S1 S2. Regular rate and rhythm. Lungs: No crackles or wheezes are heard. Extremities: Normal skin color and turgor. No cyanosis, rash, ulceration, clubbing, or edema. Non-palpable pedal pulses. Neurological: No focal deficits. Strength and sensation are grossly intact. Assessment 1. Postop day #1 left carotid endarterectomy with patch angioplasty 2. High-grade left internal carotid artery stenosis 3. Hypertension 4. 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 Coronary artery disease 6. Dyslipidemia 7. History of tobacco abuse Plan Discontinue KAILYN drain Restart home doses of Norvasc and hydralazine If blood pressures remain stable patient, may discharge once cleared by Dr. Short Appreciate recommendations from cardiology Further recommendations to follow The above dictated assessment and findings were discussed with Dr. Short. The impression and plan of care have been directed as dictated. Procedures: Left carotid endarterectomy with patch angioplasty Plan - Discharge Summary Discharge Rx Participant: Yes New Discharge Prescriptions: No Action Aspirin EC [Ecotrin Low Dose] 81 mg PO DAILY Venlafaxine HCl [Effexor] 50 mg PO BID Atorvastatin [Lipitor] 80 mg PO DAILY #30 tab amLODIPine [Norvasc] 5 mg PO BID #60 tab lisinopriL [Zestril] 20 mg PO BID #60 tab carvediloL [Coreg] 3.125 mg PO AC-BID Isosorbide Mononitrate ER [Imdur] 30 mg PO DAILY #30 tab.er.24h Acetaminophen Tab [Tylenol] 650 mg PO Q6HR PRN tab PRN Reason: Fever and/ or Mild Pain Spironolactone [Aldactone] 25 mg PO DAILY PRN PRN Reason: elevated blood pressure hydrALAZINE HCL [Apresoline] 75 mg PO TID PRN PRN Reason: taking if elevated BP Discharge Medication List Aspirin EC [Ecotrin Low Dose] 81 mg PO DAILY 02/26/20 [History] Venlafaxine HCl [Effexor] 50 mg PO BID 02/26/20 [History] Atorvastatin [Lipitor] 80 mg PO DAILY #30 tab 03/02/20 [Rx] amLODIPine [Norvasc] 5 mg PO BID #60 tab 03/02/20 [Rx] lisinopriL [Zestril] 20 mg PO BID #60 tab 03/02/20 [Rx] carvediloL [Coreg] 3.125 mg PO AC-BID 03/05/20 [History] Acetaminophen Tab [Tylenol] 650 mg PO Q6HR PRN tab 03/08/20 [Rx] Isosorbide Mononitrate ER [Imdur] 30 mg PO DAILY #30 tab.er.24h 03/08/20 [Rx] Spironolactone [Aldactone] 25 mg PO DAILY PRN 03/18/20 [History] hydrALAZINE HCL [Apresoline] 75 mg PO TID PRN 03/18/20 [History]
[2020-03-24] MEDS: VENLAFAXINE HCL 50 MG TAB PO SCH ×2 (13:39→20:40)
--- NOTE | 2020-03-24 15:17 | P.PN ---
Subjective This is Ana Briceño PA-C dictating a consult on this patient The patient was interviewed and examined by me Case discussed with Dr. Ricardo and he agrees with the plan of care HPI Patient is a 64-year-old female with a history significant for hypertension, peripheral vascular disease, carotid stenosis, former smoker, and coronary artery disease with recent catheterization showing mild to moderate triple- vessel coronary artery disease who underwent elective left carotid endarterectomy with patch angioplasty. She is doing well postoperatively. Currently in sinus rhythm. Patient seen and examined in the ICU, sitting in the chair. Denies any chest pain or shortness of breath. No dizziness. No palpitations. ROS: No fevers, chills or rigors, no cough, phlegm or expectoration, no nausea, vomiting or diarrhea, no hematuria, dysuria, no musculoskeletal complaints, no strokes or seizures, no skin lesions. EXAMINATION: Patient is afebrile, pulse in the 60s, respirations 18, blood pressure 133/38, oxygen saturation 94% on room air Patient seen and examined sitting in the chair, in no acute distress Lungs are mildly diminished bilaterally Heart is regular, systolic murmur audible No lower extremity edema REVIEW OF LABS, ECG & MEDICAL DATA WBC 10.8, hemoglobin 10.5, platelets 295, potassium 4.7, BUN 29, creatinine 0.71 Recent echocardiogram shows EF 55-60% IMPRESSION / ASSESSMENT: #1 Severe left carotid artery stenosis status post left carotid endarterectomy with patch angioplasty, postop day #1 #2 hypertension, with history of multiple admissions for hypertensive crisis, blood pressure currently reasonably well-controlled on amlodipine 5 mg twice a day #3 peripheral vascular disease, right subclavian occlusion and aortoiliac occlusive disease #4 mild to moderate triple-vessel CAD #5 former smoker, quit about a month ago #6 dyslipidemia PLAN: Add in low-dose Coreg 3.125 mg twice a day Avoid hydralazine Monitor blood pressure Continue dual antiplatelet therapy as per vascular surgery Continue high intensity statins Objective - Vital Signs Vital signs: Vital Signs Temp 98.0 F 03/24/20 12:00 Pulse 68 03/24/20 15:00 Resp 28 H 03/24/20 15:00 BP 144/57 03/24/20 15:00 Pulse Ox 95 03/24/20 15:00 Intake & Output 03/23/20 03/24/2020 18:59 06:59 18:59 Intake Total 1406 912.872 680 Output Total 275 775 550 Balance 1131 137.872 130 Weight 60.6 kg 62 kg Intake: IV 1406 880 280 Clindamycin 50 Lactated Ringers 1,000 ml 880 230 @ 10 mls/hr IV .Q24H CASTRO Rx#:[id number] Intake, IV Titration 32.872 Amount Phenylephrine 40 mg In 32.872 Sodium Chloride 0.9% 250 ml @ 1 MCG/KG/MIN 23.089 mls/hr IV .Q11H1M CASTRO Rx# :[id number] Oral 400 Output: Drainage 80 Left Neck 80 Urine 200 695 550 Estimated Blood Loss 75 Other: Voiding Method Indwelling Catheter Indwelling Catheter ABP, PAP, CO, CI - Last Documented Arterial Blood Pressure 144/37 - Labs CBC & Chem 7: 03/24/20 04:20 03/24/20 04:20 Labs: Abnormal Lab Results - Last 24 Hours (Table) 03/23/20 03/24/20 03/24/20 Range/Units 19:33 04:20 04:20 WBC 10.8 H (3.8-10.6) k/uL RBC 3.40 L (3.80-5.40) m/uL Hgb 10.5 L (11.4-16.0) gm/dL Hct 32.6 L (34.0-46.0) % Neutrophils # 8.8 H (1.3-7.7) k/uL Sodium 135 L (137-145) mmol/L BUN 29 H (7-17) mg/dL Glucose 118 H (74-99) mg/dL POC Glucose (mg/dL) 129 H (75-99) mg/dL
--- NOTE | 2020-03-24 15:19 | P.CRDCN ---
History of Present Illness History of present illness: This is Ana Briceño PA-C dictating a consult on this patient The patient was interviewed and examined by me Case discussed with Dr. Ricardo and he agrees with the plan of care HPI Patient is a 64-year-old female with a history significant for hypertension, peripheral vascular disease, carotid stenosis, former smoker, and coronary artery disease with recent catheterization showing mild to moderate triple- vessel coronary artery disease who underwent elective left carotid endarte rectomy with patch angioplasty. She is doing well postoperatively. Currently in sinus rhythm. Patient seen and examined in the ICU, sitting in the chair. Denies any chest pain or shortness of breath. No dizziness. No palpitations. ROS: No fevers, chills or rigors, no cough, phlegm or expectoration, no nausea, vomiting or diarrhea, no hematuria, dysuria, no musculoskeletal complaints, no strokes or seizures, no skin lesions. EXAMINATION: Patient is afebrile, pulse in the 60s, respirations 18, blood pressure 133/38, oxygen saturation 94% on room air Patient seen and examined sitting in the chair, in no acute distress Lungs are mildly diminished bilaterally Heart is regular, systolic murmur audible No lower extremity edema REVIEW OF LABS, ECG & MEDICAL DATA WBC 10.8, hemoglobin 10.5, platelets 295, potassium 4.7, BUN 29, creatinine 0.71 Recent echocardiogram shows EF 55-60% IMPRESSION / ASSESSMENT: #1 Severe left carotid artery stenosis status post left carotid endarterectomy with patch angioplasty, postop day #1 #2 hypertension, with history of multiple admissions for hypertensive crisis, blood pressure currently reasonably well-controlled on amlodipine 5 mg twice a day #3 peripheral vascular disease, right subclavian occlusion and aortoiliac occlusive disease #4 mild to moderate triple-vessel CAD #5 former smoker, quit about a month ago #6 dyslipidemia PLAN: Add in low-dose Coreg 3.125 mg twice a day Avoid hydralazine Monitor blood pressure Continue dual antiplatelet therapy as per vascular surgery Continue high intensity statins Past Medical History Past Medical History: Coronary Artery Disease (CAD), Hypertension, Vascular Disorder Additional Past Medical History / Comment(s): carotid stenosis, dizziness, recent admission for uncontrolled hypertension & orthostatic hypotension, meds were adjusted, cardiac cath & aortogram were done History of Any Multi-Drug Resistant Organisms: None Reported Past Surgical History: Heart Catheterization, Tonsillectomy Additional Past Surgical History / Comment(s): abdominal laparotomy, fibroid tumor from uterus, fibroid from L breast, cardiac cath done 03-15-20 Past Anesthesia/Blood Transfusion Reactions: Postoperative Nausea & Vomiting (PONV) Smoking Status: Former smoker Medications and Allergies Home Medications Medication Instructions Recorded Confirmed Type Aspirin EC [Ecotrin Low Dose] 81 mg PO DAILY 02/26/20 03/23/20 History Venlafaxine HCl [Effexor] 50 mg PO BID 02/26/20 03/23/20 History Atorvastatin [Lipitor] 80 mg PO DAILY #30 tab 03/02/20 03/23/20 Rx amLODIPine [Norvasc] 5 mg PO BID #60 tab 03/02/20 03/23/20 Rx lisinopriL [Zestril] 20 mg PO BID #60 tab 03/02/20 03/23/20 Rx carvediloL [Coreg] 3.125 mg PO AC-BID 03/05/20 03/23/20 History Acetaminophen Tab [Tylenol] 650 mg PO Q6HR PRN tab 03/08/20 03/23/20 Rx Isosorbide Mononitrate ER [Imdur] 30 mg PO DAILY #30 tab.er.24h 03/08/20 03/23/20 Rx Spironolactone [Aldactone] 25 mg PO DAILY PRN 03/18/20 03/23/20 History hydrALAZINE HCL [Apresoline] 75 mg PO TID PRN 03/18/20 03/23/20 History Allergies Allergy/AdvReac Type Severity Reaction Status Date / Time losartan [From Cozaar] Allergy Itching Verified 03/23/20 11:55 Penicillins Allergy Swelling Verified 03/23/20 11:55 midazolam [From Versed] AdvReac Nausea & Verified 03/23/20 11:55 Vomiting Physical Exam Vitals: Vital Signs Temp Pulse Pulse Resp BP BP BP 03/24/20 15:00 68 28 H 144/57 03/24/20 14:00 59 L 18 03/24/20 13:30 64 34 H 144/57 03/24/20 13:00 62 19 03/24/20 12:30 65 22 03/24/20 12:00 98.0 F 67 20 144/57 03/24/20 11:30 68 22 03/24/20 11:00 71 25 H 03/24/20 10:30 64 20 03/24/20 10:00 67 16 03/24/20 09:30 66 26 H 141/56 03/24/20 09:00 70 31 H 03/24/20 08:30 70 29 H 03/24/20 08:00 62 20 03/24/20 07:30 57 L 19 03/24/20 07:00 57 L 16 03/24/20 06:30 60 17 03/24/20 06:00 56 L 14 03/24/20 05:30 55 L 19 03/24/20 05:00 57 L 19 03/24/20 04:30 57 L 20 03/24/20 04:00 98.9 F 57 L 13 03/24/20 03:30 58 L 18 03/24/20 03:00 55 L 13 03/24/20 02:30 59 L 15 03/24/20 02:00 59 L 18 03/24/20 01:30 59 L 17 03/24/20 01:00 61 18 03/24/20 00:30 60 19 03/24/20 00:00 98 F 66 18 03/23/20 23:30 61 15 03/23/20 23:00 62 14 03/23/20 22:30 56 L 16 03/23/20 22:00 65 15 03/23/20 21:30 64 18 03/23/20 21:00 79 14 03/23/20 20:45 73 18 03/23/20 20:30 66 16 03/23/20 20:15 73 17 03/23/20 20:00 98.6 F 67 20 03/23/20 19:45 68 18 03/23/20 19:32 71 16 03/23/20 18:45 97 F L 60 16 134/59 162/71 03/23/20 18:30 57 L 16 129/60 170/53 03/23/20 18:15 59 L 16 133/61 169/52 03/23/20 18:00 56 L 17 110/56 124/50 03/23/20 17:45 58 L 16 178/69 205/75 03/23/20 17:30 56 L 17 100/46 127/53 03/23/20 17:15 58 L 16 124/60 120/59 09/08/20 17:00 60 16 120/52 100/63 03/23/20 16:47 97 F L 75 18 125/42 119/40 Pulse Ox 03/24/20 15:00 95 03/24/20 14:00 94 L 03/24/20 13:30 93 L 03/24/20 13:00 94 L 03/24/20 12:30 91 L 03/24/20 12:00 92 L 03/24/20 11:30 95 03/24/20 11:00 93 L 03/24/20 10:30 95 03/24/20 10:00 93 L 03/24/20 09:30 93 L 03/24/20 09:00 93 L 03/24/20 08:30 92 L 03/24/20 08:00 93 L 03/24/20 07:30 94 L 03/24/20 07:00 93 L 03/24/20 06:30 93 L 03/24/20 06:00 96 03/24/20 05:30 94 L 03/24/20 05:00 94 L 03/24/20 04:30 93 L 03/24/20 04:00 95 03/24/20 03:30 94 L 03/24/20 03:00 95 03/24/20 02:30 94 L 03/24/20 02:00 94 L 03/24/20 01:30 94 L 03/24/20 01:00 94 L 03/24/20 00:30 94 L 03/24/20 00:00 93 L 03/23/20 23:30 96 03/23/20 23:00 96 03/23/20 22:30 92 L 03/23/20 22:00 95 03/23/20 21:30 93 L 03/23/20 21:00 91 L 03/23/20 20:45 93 L 03/23/20 20:30 92 L 03/23/20 20:15 92 L 03/23/20 20:00 91 L 03/23/20 19:45 92 L 03/23/20 19:32 93 L 03/23/20 18:45 99 03/23/20 18:30 99 03/23/20 18:15 99 03/23/20 18:00 99 03/23/20 17:45 100 03/23/20 17:30 99 03/23/20 17:15 98 03/23/20 17:00 98 03/23/20 16:47 99 Intake and Output 03/24/20 03/24/20 03/24/20 06:59 14:59 22:59 Intake Total 672.314 670 10 Output Total 570 100 450 Balance 102.314 570 -440 Intake: IV 640 270 10 Clindamycin 50 Lactated Ringers 1,000 ml 640 220 10 @ 10 mls/hr IV .Q24H [facility] Rx#:[id number] Intake, IV Titration 32.314 Amount Phenylephrine 40 mg In 32.314 Sodium Chloride 0.9% 250 ml @ 1 MCG/KG/MIN 23.089 mls/hr IV .Q11H1M [facility] Rx# :[id number] Oral 400 Output: Drainage 55 Left Neck 55 Urine 515 100 450 Other: Voiding Method Indwelling Catheter Indwelling Catheter Weight 62 kg ABP, PAP, CO, CI - Last 8 Hours Arterial Blood Pressure 144/37 Arterial Blood Pressure 133/38 Arterial Blood Pressure 140/47 Arterial Blood Pressure 160/51 Arterial Blood Pressure 136/36 Arterial Blood Pressure 142/42 Arterial Blood Pressure 134/35 Arterial Blood Pressure 132/37 Arterial Blood Pressure 152/42 Arterial Blood Pressure 172/54 Arterial Blood Pressure 143/43 Arterial Blood Pressure 141/39 Arterial Blood Pressure 149/44 Results 03/24/20 04:20 03/24/20 04:20 CBC 03/24/20 Range/Units 04:20 WBC 10.8 H (3.8-10.6) k/uL RBC 3.40 L (3.80-5.40) m/uL Hgb 10.5 L (11.4-16.0) gm/dL Hct 32.6 L (34.0-46.0) % Plt Count 295 (150-450) k/uL Comprehensive Metabolic Panel 03/24/20 Range/Units 04:20 Sodium 135 L (137-145) mmol/L Potassium 4.7 (3.5-5.1) mmol/L Chloride 104 (98-107) mmol/L Carbon Dioxide 24 (22-30) mmol/L BUN 29 H (7-17) mg/dL Creatinine 0.71 (0.52-1.04) mg/dL Glucose 118 H (74-99) mg/dL Calcium 8.6 (8.4-10.2) mg/dL Current Medications Generic Name Dose Route Start Last Admin Trade Name Freq PRN Reason Stop Dose Admin Acetaminophen 650 mg 03/23/20 17:13 Tylenol Tab PO Q4HR PRN Pain Hydrocodone Bitart/Acetaminophen 1 each 03/24/20 08:42 03/24/20 09:04 [place] 5-325 PO 1 each Q4HR PRN Administration Pain Al Hydroxide/Mg Hydroxide 30 ml 03/23/20 17:13 Maalox PO Q6HR PRN Indigestion Amlodipine Besylate 5 mg 03/24/20 09:00 03/24/20 09:11 Norvasc PO 5 mg BID [facility] Administration Aspirin 162 mg 03/24/20 09:00 03/24/20 09:11 Aspirin PO 162 mg DAILY [facility] Administration Atorvastatin Calcium 80 mg 03/24/20 21:00 Lipitor PO HS [facility] Benzocaine/Menthol 1 each 03/23/20 17:13 Cepacol Lozenge MUCOUS MEM Q2HR PRN Sore Throat Carvedilol 3.125 mg 03/24/20 17:30 Coreg PO BID-W/MEALS [facility] Clopidogrel Bisulfate 75 mg 03/24/20 09:00 03/24/20 09:11 Plavix PO 75 mg DAILY [facility] Administration Lactated Ringer's 1,000 mls @ 10 mls/hr 03/23/20 17:15 03/24/20 06:49 Lactated Ringers IV Not Given .Q24H [facility] Lidocaine HCl 0.1 ml 03/23/20 06:12 03/23/20 12:15 .Xylocaine 1% Inj (10mg/Ml) For Iv Start INTRADERMA 0.1 ml PER PROTOCOL PRN Administration IV Start Morphine Sulfate 2 mg 03/23/20 17:13 Morphine Sulfate (Inj) IVP Q4H PRN Pain Scale 6 to 7 Trimethobenzamide HCl 200 mg 03/23/20 17:13 Tigan IM Q4HR PRN Nausea And Vomiting Venlafaxine HCl 50 mg 03/24/20 12:45 03/24/20 13:39 Effexor PO 50 mg BID [facility] Administration Intake and Output 03/24/20 03/24/20 03/24/20 06:59 14:59 22:59 Intake Total 672.314 670 10 Output Total 570 100 450 Balance 102.314 570 -440 Intake: IV 640 270 10 Clindamycin 50 Lactated Ringers 1,000 ml 640 220 10 @ 10 mls/hr IV .Q24H [facility] Rx#:[id number] Intake, IV Titration 32.314 Amount Phenylephrine 40 mg In 32.314 Sodium Chloride 0.9% 250 ml @ 1 MCG/KG/MIN 23.089 mls/hr IV .Q11H1M [facility] Rx# :[id number] Oral 400 Output: Drainage 55 Left Neck 55 Urine 515 100 450 Other: Voiding Method Indwelling Catheter Indwelling Catheter Weight 62 kg 03/24/20 04:20 03/24/20 04:20
[2020-03-24] MEDS: carvediloL 3.125 MG TAB PO SCH (19:17)
--- NOTE | 2020-03-24 19:50 | P.CONS ---
History of Present Illness - History of Present Illness This is a pleasant 64 years old female with multiple medical problems as below, mainly hypertension, Abdominal aortic narrowing ,Left internal carotid artery stenosis by 80%,. She is a patient of Dr. Beena do. Discrepancy blood pressure measurement between the right and left side. Orthostatic hypotension. Admitted undersurface of Dr. Short for Left carotid antrectomy with patch angioplasty. Postoperatively patient was monitored in the ICU. Today is postoperative day #1. Patient is doing well, she is fully awake and oriented, no complaint of pain or weakness or numbness. No headache. She was asking him to restart her Effexor. He is hemodynamically stable and labs reviewed in the looks stable, only mild leukocytosis. Review of Systems CONSTITUTIONAL: No fever, no malaise, no fatigue. HEENT: No recent visual problems or hearing problems. Denied any sore throat. CARDIOVASCULAR: No orthopnea, PND, no palpitations, no syncope. PULMONARY: No shortness of breath, no cough, no hemoptysis. GASTROINTESTINAL: No diarrhea, no nausea, no vomiting, no abdominal pain. Normoactive bowel sounds. NEUROLOGICAL: No headaches, no weakness, no numbness. HEMATOLOGICAL: Denies any bleeding or petechiae. GENITOURINARY: Denies any burning micturition, frequency, or urgency. MUSCULOSKELETAL/RHEUMATOLOGICAL: Denies any joint pain, swelling, or any muscle pain. ENDOCRINE: Denies any polyuria or polydipsia. Past Medical History Past Medical History: Coronary Artery Disease (CAD), Hypertension, Vascular Disorder Additional Past Medical History / Comment(s): carotid stenosis, dizziness, recent admission for uncontrolled hypertension & orthostatic hypotension, meds were adjusted, cardiac cath & aortogram were done History of Any Multi-Drug Resistant Organisms: None Reported Past Surgical History: Heart Catheterization, Tonsillectomy Additional Past Surgical History / Comment(s): abdominal laparotomy, fibroid tumor from uterus, fibroid from L breast, cardiac cath done 03-15-20 Past Anesthesia/Blood Transfusion Reactions: Postoperative Nausea & Vomiting (PONV) Smoking Status: Former smoker Medications and Allergies Home Medications Medication Instructions Recorded Confirmed Type Aspirin EC [Ecotrin Low Dose] 81 mg PO DAILY 02/26/20 03/23/20 History Venlafaxine HCl [Effexor] 50 mg PO BID 02/26/20 03/23/20 History Atorvastatin [Lipitor] 80 mg PO DAILY #30 tab 03/02/20 03/23/20 Rx amLODIPine [Norvasc] 5 mg PO BID #60 tab 03/02/20 03/23/20 Rx lisinopriL [Zestril] 20 mg PO BID #60 tab 03/02/20 03/23/20 Rx carvediloL [Coreg] 3.125 mg PO AC-BID 03/05/20 03/23/20 History Acetaminophen Tab [Tylenol] 650 mg PO Q6HR PRN tab 03/08/20 03/23/20 Rx Isosorbide Mononitrate ER [Imdur] 30 mg PO DAILY #30 tab.er.24h 03/08/20 03/23/20 Rx Spironolactone [Aldactone] 25 mg PO DAILY PRN 03/18/20 03/23/20 History hydrALAZINE HCL [Apresoline] 75 mg PO TID PRN 03/18/20 03/23/20 History Allergies Allergy/AdvReac Type Severity Reaction Status Date / Time losartan [From Justin] Allergy Itching Verified 03/23/20 11:55 Penicillins Allergy Swelling Verified 03/23/20 11:55 midazolam [From Versed] AdvReac Nausea & Verified 03/23/20 11:55 Vomiting Physical Exam Vitals: Vital Signs Temp Pulse Pulse Resp BP BP BP 03/24/20 14:00 59 L 18 03/24/20 13:30 64 34 H 144/57 03/24/20 13:00 62 19 03/24/20 12:30 65 22 03/24/20 12:00 98.0 F 67 20 144/57 03/24/20 11:30 68 22 03/24/20 11:00 71 25 H 03/24/20 10:30 64 20 03/24/20 10:00 67 16 03/24/20 09:30 66 26 H 141/56 03/24/20 09:00 70 31 H 03/24/20 08:30 70 29 H 03/24/20 08:00 62 20 03/24/20 07:30 57 L 19 03/24/20 07:00 57 L 16 03/24/20 06:30 60 17 03/24/20 06:00 56 L 14 03/24/20 05:30 55 L 19 03/24/20 05:00 57 L 19 03/24/20 04:30 57 L 20 03/24/20 04:00 98.9 F 57 L 13 03/24/20 03:30 58 L 18 03/24/20 03:00 55 L 13 03/24/20 02:30 59 L 15 03/24/20 02:00 59 L 18 03/24/20 01:30 59 L 17 03/24/20 01:00 61 18 03/24/20 00:30 60 19 03/24/20 00:00 98 F 66 18 03/23/20 23:30 61 15 03/23/20 23:00 62 14 03/23/20 22:30 56 L 16 03/23/20 22:00 65 15 03/23/20 21:30 64 18 03/23/20 21:00 79 14 03/23/20 20:45 73 18 03/23/20 20:30 66 16 03/23/20 20:15 73 17 03/23/20 20:00 98.6 F 67 20 03/23/20 19:45 68 18 03/23/20 19:32 71 16 03/23/20 18:45 97 F L 60 16 134/59 162/71 03/23/20 18:30 57 L 16 129/60 170/53 03/23/20 18:15 59 L 16 133/61 169/52 03/23/20 18:00 56 L 17 110/56 124/50 03/23/20 17:45 58 L 16 178/69 205/75 03/23/20 17:30 56 L 17 100/46 127/53 03/23/20 17:15 58 L 16 124/60 120/59 03/23/20 17:00 60 16 120/52 100/63 03/23/20 16:47 97 F L 75 18 125/42 119/40 Pulse Ox 03/24/20 14:00 94 L 03/24/20 13:30 93 L 03/24/20 13:00 94 L 03/24/20 12:30 91 L 03/24/20 12:00 92 L 03/24/20 11:30 95 03/24/20 11:00 93 L 03/24/20 10:30 95 03/24/20 10:00 93 L 03/24/20 09:30 93 L 03/24/20 09:00 93 L 03/24/20 08:30 92 L 03/24/20 08:00 93 L 03/24/20 07:30 94 L 03/24/20 07:00 93 L 03/24/20 06:30 93 L 03/24/20 06:00 96 03/24/20 05:30 94 L 03/24/20 05:00 94 L 03/24/20 04:30 93 L 03/24/20 04:00 95 03/24/20 03:30 94 L 03/24/20 03:00 95 03/24/20 02:30 94 L 03/24/20 02:00 94 L 03/24/20 01:30 94 L 03/24/20 01:00 94 L 03/24/20 00:30 94 L 03/24/20 00:00 93 L 03/23/20 23:30 96 03/23/20 23:00 96 03/23/20 22:30 92 L 03/23/20 22:00 95 03/23/20 21:30 93 L 03/23/20 21:00 91 L 03/23/20 20:45 93 L 03/23/20 20:30 92 L 03/23/20 20:15 92 L 03/23/20 20:00 91 L 03/23/20 19:45 92 L 03/23/20 19:32 93 L 03/23/20 18:45 99 03/23/20 18:30 99 03/23/20 18:15 99 03/23/20 18:00 99 03/23/20 17:45 100 03/23/20 17:30 99 03/23/20 17:15 98 03/23/20 17:00 98 03/23/20 16:47 99 Intake and Output 03/23/20 03/24/20 03/24/20 22:59 06:59 14:59 Intake Total 590.558 672.314 670 Output Total 480 570 100 Balance 110.558 102.314 570 Intake: IV 590 640 270 Clindamycin 50 Lactated Ringers 1,000 ml 240 640 220 @ 10 mls/hr IV .Q24H [facility] Rx#:[id number] Intake, IV Titration 0.558 32.314 Amount Phenylephrine 40 mg In 0.558 32.314 Sodium Chloride 0.9% 250 ml @ 1 MCG/KG/MIN 23.089 mls/hr IV .Q11H1M [facility] Rx# :[id number] Oral 400 Output: Drainage 25 55 Left Neck 25 55 Urine 380 515 100 Estimated Blood Loss 75 Other: Voiding Method Indwelling Catheter Indwelling Catheter Indwelling Catheter Weight 60.6 kg 62 kg ABP, PAP, CO, CI - Last 8 Hours Arterial Blood Pressure 133/38 Arterial Blood Pressure 140/47 Arterial Blood Pressure 160/51 Arterial Blood Pressure 136/36 Arterial Blood Pressure 142/42 Arterial Blood Pressure 134/35 Arterial Blood Pressure 132/37 Arterial Blood Pressure 152/42 Arterial Blood Pressure 172/54 Arterial Blood Pressure 143/43 Arterial Blood Pressure 141/39 Arterial Blood Pressure 149/44 Arterial Blood Pressure 133/41 GENERAL: The patient is alert and oriented x3, not in any acute distress. Well developed, well nourished. -HEENT: Pupils are round and equally reacting to light. EOMI. No scleral icterus. No conjunctival pallor. Normocephalic, atraumatic. No pharyngeal erythema. No thyromegaly. Left neck wound is closed CARDIOVASCULAR: S1 and S2 present. No murmurs, rubs, or gallops. PULMONARY: Chest is clear to auscultation, no wheezing or crackles. ABDOMEN: Soft, nontender, nondistended, normoactive bowel sounds. No palpable organomegaly. MUSCULOSKELETAL: No joint swelling or deformity. EXTREMITIES: No cyanosis, clubbing, or pedal edema. NEUROLOGICAL: Gross neurological examination did not reveal any focal deficits. SKIN: No rashes. No petechiae Results CBC & Chem 7: 03/24/20 04:20 03/24/20 04:20 Labs: Abnormal Lab Results - Last 24 Hours (Table) 03/23/20 03/24/20 03/24/20 Range/Units 19:33 04:20 04:20 WBC 10.8 H (3.8-10.6) k/uL RBC 3.40 L (3.80-5.40) m/uL Hgb 10.5 L (11.4-16.0) gm/dL Hct 32.6 L (34.0-46.0) % Neutrophils # 8.8 H (1.3-7.7) k/uL Sodium 135 L (137-145) mmol/L BUN 29 H (7-17) mg/dL Glucose 118 H (74-99) mg/dL POC Glucose (mg/dL) 129 H (75-99) mg/dL Assessment and Plan Assessment: Left internal carotid artery stenosis by 80%, status post antrectomy. todays' postop day #1 Recent cardiac cath showing mild to moderate triple-vessel coronary artery disease, continue with medical treatment History of Orthostatic hypotension 100% stenosis of the infrarenal aorta permissive hypertension Mild hyponatremia Emphysema, not an active issue Plan: This is a pleasant 64 years old female who presents for left internal carotid artery stenosis status post appendectomy. Continue with pain management. Cardiology and pulmonary/critical care team consult and further recommendation. Continue with antihypertensive and adjust medication per substation manager and vascular surgery recommendation. Monitor blood pressure Labs and medication were reviewed.. Continue same treatment. Continue with symptomatic treatment. Resume home medication. Monitor lytes and vitals. DVT and GI prophylaxis. Further recommendations of the clinical course of the patient Thank you for consulting us
[2020-03-24] MEDS ORDERED: ATORVASTATIN 80 MG TAB PO SCH (21:00)
[2020-03-25 02:16] VITALS: TEMP 97.6
[2020-03-25 06:03] LABS: Basophils # (A) 0.1 k/uL (0-0.2); Basophils % (A) 1 %; Eosinophils # (A) 0.1 k/uL (0-0.7); Eosinophils % (A) 1 %; HCT 33.9 % (34.0-46.0); HGB 10.8 gm/dL (11.4-16.0); Lymphocytes # (A) 4.2 k/uL (1.0-4.8); Lymphocytes % (A) 35 %; MCH 30.9 pg (25.0-35.0); MCHC 31.9 g/dL (31.0-37.0); MCV 96.6 fL (80.0-100.0); Mean Platelet Volume 7.2; Monocytes # (A) 0.8 k/uL (0-1.0); Monocytes % (A) 7 %; Neutrophils # (A) 6.6 k/uL (1.3-7.7); Neutrophils % (A) 55 %; Platelet Count 270 k/uL (150-450); RBC 3.51 m/uL (3.80-5.40)
[2020-03-25 06:55] VITALS: BP 151/53; PULSE 60; RESP 15
[2020-03-25] MEDS: ASPIRIN 81 MG PO SCH (08:14)
[2020-03-25] MEDS: VENLAFAXINE HCL 50 MG TAB PO SCH (08:15)
[2020-03-25] MEDS: amLODIPine 5 MG TAB PO SCH (08:15)
[2020-03-25] MEDS: carvediloL 3.125 MG TAB PO SCH (08:15)
[2020-03-25] MEDS: CLOPIDOGREL 75 MG TAB PO SCH (08:15)
--- NOTE | 2020-03-25 09:30 | P.PN ---
Subjective Progress Note Date: 03/25/20 The patient was seen and examined in the ICU. She denies any acute changes through the night. Her blood pressures have been stable running in the 150s over 50s 60s, heart rate in the 60s. He is status postop day #2 for left carotid endarterectomy with patch angioplasty. She states her pain is well con trolled. She denies any shortness of breath, chest pain, dizziness, or headaches. Denies any focal deficits, she's been up and ambulating, eating well. Objective - Vital Signs Vital signs: Vital Signs Temp 97.6 F 03/24/20 22:00 Pulse 60 03/25/20 06:00 Resp 15 03/25/20 08:00 BP 151/53 03/25/20 06:00 Pulse Ox 95 03/24/20 16:00 Intake & Output 03/24/20 03/25/20 03/25/20 18:59 06:59 18:59 Intake Total 691.462 520 300 Output Total 550 500 Balance 141.462 520 -200 Weight 62.5 kg Intake: IV 290 20 Clindamycin 50 Lactated Ringers 1,000 ml 240 20 @ 10 mls/hr IV .Q24H [facility] Rx#:[id number] Intake, IV Titration 1.462 Amount Phenylephrine 40 mg In 1.462 Sodium Chloride 0.9% 250 ml @ 1 MCG/KG/MIN 23.089 mls/hr IV .Q11H1M [facility] Rx# :[id number] Oral 400 500 300 Output: Urine 550 500 Other: Voiding Method Indwelling Catheter Indwelling Catheter Toilet Bedside Commode # Voids 2 ABP, PAP, CO, CI - Last Documented Arterial Blood Pressure 161/55 - Exam General appearance: The patient is alert, oriented, in no acute distress. HET: Head is normocephalic and atraumatic. Neck: Supple without lymphadenopathy. Trachea midline. Left-sided neck surgical incision site clean dry and intact without any bleeding or drainage. Heart: S1 S2. Regular rate and rhythm. Lungs: No crackles or wheezes are heard. Abdomen: Soft, nontender, nondistended with bowel sounds. Extremities: Normal skin color and turgor. No cyanosis, rash, ulceration, clubbing, or edema. Neurological: No focal deficits. Strength and sensation are grossly intact. - Labs CBC & Chem 7: 03/25/20 04:50 03/24/20 04:20 Labs: Abnormal Lab Results - Last 24 Hours (Table) 03/25/20 Range/Units 04:50 WBC 12.0 H (3.8-10.6) k/uL RBC 3.51 L (3.80-5.40) m/uL Hgb 10.8 L (11.4-16.0) gm/dL Hct 33.9 L (34.0-46.0) % Assessment and Plan Assessment: 1. Postop day #2 left carotid endarterectomy with patch angioplasty 2. High-grade left internal carotid artery stenosis 3. Hypertension 4. 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 Coronary artery disease 6. Dyslipidemia 7. History of tobacco abuse Plan: Continue aspirin and Plavix Patient to be discharged home today, cleared by cardiology Continue with Norvasc and Coreg as prescribed per cardiology Follow-up with Dr. Short in 2 weeks Follow-up with PCP and Dr. Matos in 1 week The above dictated assessment and findings were discussed with Dr. Rosenthal. The impression and plan of care have been directed as dictated.
--- NOTE | 2020-03-25 16:44 | P.PN ---
Subjective Progress Note Date: 03/25/20 Principal diagnosis: Left carotid stenosis, status post carotid endarterectomy 64-year-old white female patient with known history of high-grade focal left internal carotid artery stenosis, I pretension, right subclavian occlusion, aorto iliac occlusive disease. Patient has had multiple hospitalizations due to hypertensive crisis, acquiring intensive care admissions. On 03/23/2020 patient had elective left carotid endarterectomy with patch angioplasty, patient was admitted to the intensive care unit following her surgery. His postoperative day 1, she is awake and alert, in no acute distress, she is on 2 L of oxygen, with a pulse ox of 93%, systolic blood pressure is ranging from 140-170 numbness of mercury, she has been on and off Omer-Synephrine to maintain systolic blood pressure between 130 to 170. She is on lactated Ringer's at a rate of 80 ML per hour. She is in sinus mechanism, denies any shortness of breath, denies any chest pain, her left neck incision is clean dry and intact, no tracheal deviation, surgical incisions covered with a dressing, KAILYN joint is compressed and draining small amount of sanguinous drainage. Neurologically intact. No acute events overnight. Today's labs reviewed. On 03/25/2020 patient seen in follow-up in the intensive care unit, today is postoperative day #2 status post left carotid endarterectomy and patch angioplasty for high grade left carotid artery stenosis. Patient is doing very well today, IV fluids have been hep-locked. Hemodynamically stable, blood pressures 131/72, patient is sinus mechanism on the monitor, with a rate of 59. She is on room air, she denies any shortness of breath, no complaints of chest pain, no neurologic deficits, left neck incision is clean dry and intact, KAILYN drain has been discontinued. Today's labs have been reviewed, showing little cell count 12, hemoglobin 10.8 Objective - Vital Signs Vital signs: Vital Signs Temp 97.6 F 03/24/20 22:00 Pulse 60 03/25/20 06:00 Resp 15 03/25/20 08:00 BP 151/53 03/25/20 06:00 Pulse Ox 95 03/24/20 16:00 Intake & Output 03/24/20 03/25/20 03/25/20 18:59 06:59 18:59 Intake Total 691.462 520 300 Output Total 550 500 Balance 141.462 520 -200 Weight 62.5 kg Intake: IV 290 20 Clindamycin 50 Lactated Ringers 1,000 ml 240 20 @ 10 mls/hr IV .Q24H [facility] Rx#:[id number] Intake, IV Titration 1.462 Amount Phenylephrine 40 mg In 1.462 Sodium Chloride 0.9% 250 ml @ 1 MCG/KG/MIN 23.089 mls/hr IV .Q11H1M [facility] Rx# :[id number] Oral 400 500 300 Output: Urine 550 500 Other: Voiding Method Indwelling Catheter Indwelling Catheter Toilet Bedside Commode # Voids 2 ABP, PAP, CO, CI - Last Documented Arterial Blood Pressure 161/55 - Exam GENERAL EXAM: Alert, very pleasant, 64-year-old white female, on 2 L of oxygen the pulse ox of 93% comfortable in no apparent distress. HEAD: Normocephalic/atraumatic. EYES: Normal reaction of pupils, equal size. Conjunctiva pink, sclera white. NOSE: Clear with pink turbinates. THROAT: No erythema or exudates. NECK: No masses, no JVD, no thyroid enlargement, no adenopathy. Left oblique neck incision is covered with a surgical dressing, clean dry and intact, KAILYN drain has been discontinued CHEST: No chest wall deformity. Symmetrical expansion. LUNGS: Equal air entry with no crackles, wheeze, rhonchi or dullness. CVS: Regular rate and rhythm, normal S1 and S2, no gallops, no murmurs, no rubs ABDOMEN: Soft, nontender. No hepatosplenomegaly, normal bowel sounds, no guarding or rigidity. EXTREMITIES: No clubbing, no edema, no cyanosis, 2+ pulses and upper and lower extremities. MUSCULOSKELETAL: Muscle strength and tone normal. SPINE: No scoliosis or deformity SKIN: No rashes CENTRAL NERVOUS SYSTEM: Alert and oriented -3. No focal deficits, tone is normal in all 4 extremities. PSYCHIATRIC: Alert and oriented -3. Appropriate affect. Intact judgment and insight. - Labs CBC & Chem 7: 03/25/20 04:50 03/24/20 04:20 Labs: Abnormal Lab Results - Last 24 Hours (Table) 03/25/20 Range/Units 04:50 WBC 12.0 H (3.8-10.6) k/uL RBC 3.51 L (3.80-5.40) m/uL Hgb 10.8 L (11.4-16.0) gm/dL Hct 33.9 L (34.0-46.0) % Assessment and Plan Plan: Assessment: #1. High-grade left carotid artery stenosis status post left carotid endarterectomy with patch angioplasty, postoperative day 2 #2. History of hypertension, episodes of hypertensive crisis requiring hospitalization #3. History of right subclavian occlusion and aortobiiliac occlusive disease #4. Yelx-gh-jlrdahwa triple-vessel coronary artery disease, being medically managed by cardiology #5. History of chronic tobacco use #6. Dyslipidemia Plan: Patient is doing well, on postoperative day 2, status post left carotid endarterectomy, no acute events overnight, blood pressure has been stable. No shortness of breath, no chest pain no dizziness or headaches. Awaiting ambulation, tolerating oral diet. She is anticipated to be discharged home today, I performed a history & physical examination of the patient and discussed their management with my nurse practitioner, Danii Guadarrama. I reviewed the nurse practitioner's note and agree with the documented findings and plan of care. Lung sounds are positive for clear breath sounds. The findings and the impression was discussed with the patient. I attest to the documentation by the nurse practitioner. Time with Patient: Less than 30
--- NOTE | 2020-03-26 00:39 | P.PN ---
Subjective This is a pleasant 64 years old female with multiple medical problems as below, mainly hypertension, Abdominal aortic narrowing ,Left internal carotid artery stenosis by 80%,. She is a patient of Dr. Beena od. Discrepancy blood pressure measurement between the right and left side. Orthostatic hypotension. Admitted undersurface of Dr. Short for Left carotid antrectomy with patch angioplasty. Postoperatively patient was monitored in the ICU. Today is postoperative day #1. Patient is doing well, she is fully awake and oriented, no complaint of pain or weakness or numbness. No headache. She was asking him to restart her Effexor. He is hemodynamically stable and labs reviewed in the looks stable, only mild leukocytosis. 03/26/20 Patient is awake and alert, no chest pain or dyspnea, no postural dizziness and no other complaint She is hemodynamically stable She's continued on antihypertensive per cardiology and cardiovascular surgery Patient is medically stable Objective - Vital Signs Vital signs: Vital Signs Temp 97.6 F 03/24/20 22:00 Pulse 60 03/25/20 06:00 Resp 15 03/25/20 08:00 BP 151/53 03/25/20 06:00 Pulse Ox 95 03/24/20 16:00 Intake & Output 03/25/20 03/25/20 03/26/20 06:59 18:59 06:59 Intake Total 520 300 Output Total 500 Balance 520 -200 Weight 62.5 kg Intake: IV 20 Lactated Ringers 1,000 ml 20 @ 10 mls/hr IV .Q24H [facility] Rx#:[id number] Oral 500 300 Output: Urine 500 Other: Voiding Method Indwelling Catheter Toilet Bedside Commode # Voids 2 ABP, PAP, CO, CI - Last Documented Arterial Blood Pressure 161/55 - Exam GENERAL: The patient is alert and oriented x3, not in any acute distress. Well developed, well nourished. -HEENT: Pupils are round and equally reacting to light. EOMI. No scleral icterus. No conjunctival pallor. Normocephalic, atraumatic. No pharyngeal erythema. No thyromegaly. Left neck wound is healing and closed CARDIOVASCULAR: S1 and S2 present. No murmurs, rubs, or gallops. PULMONARY: Chest is clear to auscultation, no wheezing or crackles. ABDOMEN: Soft, nontender, nondistended, normoactive bowel sounds. No palpable organomegaly. MUSCULOSKELETAL: No joint swelling or deformity. EXTREMITIES: No cyanosis, clubbing, or pedal edema. NEUROLOGICAL: Gross neurological examination did not reveal any focal deficits. SKIN: No rashes. no petechiae. - Labs CBC & Chem 7: 03/25/20 04:50 03/24/20 04:20 Labs: Abnormal Lab Results - Last 24 Hours (Table) 03/25/20 Range/Units 04:50 WBC 12.0 H (3.8-10.6) k/uL RBC 3.51 L (3.80-5.40) m/uL Hgb 10.8 L (11.4-16.0) gm/dL Hct 33.9 L (34.0-46.0) % Assessment and Plan Assessment: Left internal carotid artery stenosis by 80%, status post antrectomy. todays' postop day #1 Recent cardiac cath showing mild to moderate triple-vessel coronary artery disease, continue with medical treatment History of Orthostatic hypotension 100% stenosis of the infrarenal aorta permissive hypertension Mild hyponatremia Emphysema, not an active issue Plan: This is a pleasant 64 years old female who presents for left internal carotid artery stenosis status post appendectomy. Continue with pain management. Cardiology and pulmonary/critical care team consult and further recommendation. Continue with antihypertensive and adjust medication per radiation safety officer and vascular surgery recommendation. Monitor blood pressure Labs and medication were reviewed.. Continue same treatment. Continue with symptomatic treatment. Resume home medication. Monitor lytes and vitals. DVT and GI prophylaxis. Further recommendations of the clinical course of the patient Thank you for consulting us
== END 2020-03-25 11:31 | disposition home or self-care (01) | DRG 38 ==
LOC: 2ORMAIN 11:21 → EDSTATUS 13:15 → 2SICU 17:33
PROVIDERS: ADMIT Surgery; ATTEND Surgery
PROC: 03CL0ZZ Extirpation of Matter from Left Internal Carotid Artery, Open Approach (ICD-10-PCS; principal; 2020-03-23 13:15)
PROC: 03UL0KZ Supplement Left Internal Carotid Artery with Nonautologous Tissue Substitute, Open Approach (ICD-10-PCS; principal; 2020-03-23 13:15)
PROC: 07B20ZX Excision of Left Neck Lymphatic, Open Approach, Diagnostic (ICD-10-PCS; principal; 2020-03-23 13:15)
DX: I65.22 Occlusion and stenosis of left carotid artery (principal); E87.1 Hypo-osmolality and hyponatremia; I82.B11 Acute embolism and thrombosis of right subclavian vein; I74.09 Other arterial embolism and thrombosis of abdominal aorta; E78.5 Hyperlipidemia, unspecified; I25.10 Atherosclerotic heart disease of native coronary artery without angina pectoris; I10 Essential (primary) hypertension; I73.9 Peripheral vascular disease, unspecified; J43.9 Emphysema, unspecified; Z90.89 Acquired absence of other organs; Z98.890 Other specified postprocedural states; Z87.891 Personal history of nicotine dependence; Z79.82 Long term (current) use of aspirin; Z79.899 Other long term (current) drug therapy; Z88.0 Allergy status to penicillin; Z88.8 Allergy status to other drugs, medicaments and biological substances
CPT/HCPCS: 80048; 85025; 88304; 88305; 88311

== ENCOUNTER 2021-02-04 23:47 | Emergency (ER) | payer MEDICARE ==
[2021-02-04 23:52] VITALS: TEMP 97.8
--- NOTE | 2021-02-05 00:23 | ED ---
Dizziness HPI - General Chief Complaint: Dizziness Stated Complaint: High BP Time Seen by Provider: 02/05/21 00:22 Source: patient, family Mode of arrival: wheelchair Limitations: no limitations - History of Present Illness MD Complaint: dizziness, lightheadedness -: hour(s) Timing: gradual onset Description: lightheadedness, off-balance History of Same: No History of Trauma: No Severity: moderate Worsens With: nothing Associated Symptoms: denies other symptoms - Related Data Home Medications Medication Instructions Recorded Confirmed Aspirin EC [Ecotrin Low Dose] 81 mg PO DAILY 02/26/20 03/23/20 Venlafaxine HCl [Effexor] 50 mg PO BID 02/26/20 03/23/20 Spironolactone [Aldactone] 25 mg PO DAILY PRN 03/18/20 03/23/20 hydrALAZINE HCL [Apresoline] 75 mg PO TID PRN 03/18/20 03/23/20 Previous Rx's Medication Instructions Recorded Atorvastatin [Lipitor] 80 mg PO DAILY #30 tab 03/02/20 amLODIPine [Norvasc] 5 mg PO BID #60 tab 03/02/20 Acetaminophen Tab [Tylenol] 650 mg PO Q6HR PRN tab 03/08/20 Clopidogrel [Plavix] 75 mg PO DAILY #90 tab 03/25/20 carvediloL [Coreg] 3.125 mg PO AC-BID #60 tab 03/25/20 Allergies Allergy/AdvReac Type Severity Reaction Status Date / Time losartan [From Cozaar] Allergy Itching Verified 02/04/21 23:52 Penicillins Allergy Swelling Verified 02/04/21 23:52 midazolam [From Versed] AdvReac Nausea & Verified 02/04/21 23:52 Vomiting Review of Systems ROS Statement: Those systems with pertinent positive or pertinent negative responses have been documented in the HPI. ROS Other: All systems not noted in ROS Statement are negative. Constitutional: Denies: fever, chills ENT: Denies: ear pain Respiratory: Denies: cough, dyspnea Cardiovascular: Denies: chest pain, palpitations, orthopnea, edema, syncope Gastrointestinal: Denies: abdominal pain, nausea, vomiting, diarrhea Genitourinary: Denies: dysuria, hematuria Musculoskeletal: Denies: back pain Skin: Denies: rash Neurological: Denies: headache, weakness, numbness Psychiatric: Reports: anxiety Past Medical History Past Medical History: Coronary Artery Disease (CAD), Hypertension, Vascular Disorder Additional Past Medical History / Comment(s): carotid stenosis, dizziness, recent admission for uncontrolled hypertension & orthostatic hypotension, meds were adjusted, cardiac cath & aortogram were done History of Any Multi-Drug Resistant Organisms: None Reported Past Surgical History: Heart Catheterization, Tonsillectomy Additional Past Surgical History / Comment(s): abdominal laparotomy, fibroid tumor from uterus, fibroid from L breast, cardiac cath done 03-15-20 Past Anesthesia/Blood Transfusion Reactions: Postoperative Nausea & Vomiting (PONV) Past Psychological History: Anxiety Smoking Status: Former smoker Past Alcohol Use History: Occasional Past Drug Use History: None Reported General Exam Limitations: no limitations General appearance: alert, in no apparent distress Head exam: Present: atraumatic, normocephalic Eye exam: Present: normal appearance, PERRL, EOMI. Absent: scleral icterus, conjunctival injection, nystagmus ENT exam: Present: normal oropharynx Neck exam: Present: normal inspection, full ROM. Absent: tenderness Respiratory exam: Present: normal lung sounds bilaterally. Absent: respiratory distress, wheezes, rales, rhonchi, stridor Cardiovascular Exam: Present: regular rate, normal rhythm, normal heart sounds. Absent: systolic murmur, diastolic murmur, rubs, gallop GI/Abdominal exam: Present: soft. Absent: distended, tenderness, guarding Extremities exam: Present: normal inspection, normal capillary refill. Absent: pedal edema, calf tenderness Back exam: Present: normal inspection. Absent: CVA tenderness (R), CVA tenderness (L) Neurological exam: Present: alert, oriented X3, CN II-XII intact. Absent: motor sensory deficit Skin exam: Present: warm, dry, intact, normal color. Absent: rash Course Vital Signs 02/04/21 02/05/21 02/05/21 23:50 00:14 02:01 Temperature 97.8 F Pulse Rate 96 64 Respiratory 20 16 Rate Blood Pressure 183/89 175/86 151/75 O2 Sat by Pulse 99 98 Oximetry EKG Findings - EKG Results: EKG: interpreted by ERMD, sinus rhythm (With sinus arrhythmia, rate 79), normal axis - Blocks, Sandoval, Hypertrophy, ST Abn: Chamber hypertrophy or enlargement: only voltage criteria for left ventricular hypertrophy Medical Decision Making - Medical Decision Making Patient states is reevaluated and states she is feeling much better. Her blood pressure is coming down versus presentation. I offered to admit her overnight were additional evaluation and treatment, the patient states she is better and would like to go home. She has pre-existing appointment with cardiology on Sunday. She will return immediately should any symptoms recur or if she is feeling worse in anyway. He is going to follow her blood pressure at home. - Lab Data Result diagrams: 02/05/21 00:50 02/05/21 00:50 Lab Results 02/05/21 02/05/21 02/05/21 Range/Units 00:50 00:50 00:50 WBC 9.7 (3.8-10.6) k/uL RBC 4.43 (3.80-5.40) m/uL Hgb 14.0 (11.4-16.0) gm/dL Hct 42.4 (34.0-46.0) % MCV 95.8 (80.0-100.0) fL MCH 31.6 (25.0-35.0) pg MCHC 33.0 (31.0-37.0) g/dL RDW 13.9 (11.5-15.5) % Plt Count 257 (150-450) k/uL MPV 6.9 Neutrophils % 66 % Lymphocytes % 24 % Monocytes % 6 % Eosinophils % 2 % Basophils % 1 % Neutrophils # 6.4 (1.3-7.7) k/uL Lymphocytes # 2.4 (1.0-4.8) k/uL Monocytes # 0.5 (0-1.0) k/uL Eosinophils # 0.2 (0-0.7) k/uL Basophils # 0.1 (0-0.2) k/uL Sodium 138 (137-145) mmol/L Potassium 3.7 (3.5-5.1) mmol/L Chloride 106 (98-107) mmol/L Carbon Dioxide 22 (22-30) mmol/L Anion Gap 10 mmol/L BUN 20 H (7-17) mg/dL Creatinine 0.68 (0.52-1.04) mg/dL Est GFR (CKD-EPI)AfAm >90 (>60 ml/min/1.73 sqM) Est GFR (CKD-EPI)NonAf >90 (>60 ml/min/1.73 sqM) Glucose 121 H (74-99) mg/dL Plasma Lactic Acid Harpal 0.8 (0.7-2.0) mmol/L Calcium 9.7 (8.4-10.2) mg/dL Total Bilirubin 0.2 (0.2-1.3) mg/dL AST 25 (14-36) U/L ALT 18 (4-34) U/L Alkaline Phosphatase 74 (38-126) U/L Troponin I (0.000-0.034) ng/mL Total Protein 6.5 (6.3-8.2) g/dL Albumin 4.1 (3.5-5.0) g/dL 02/05/21 Range/Units 00:50 WBC (3.8-10.6) k/uL RBC (3.80-5.40) m/uL Hgb (11.4-16.0) gm/dL Hct (34.0-46.0) % MCV (80.0-100.0) fL MCH (25.0-35.0) pg MCHC (31.0-37.0) g/dL RDW (11.5-15.5) % Plt Count (150-450) k/uL MPV Neutrophils % % Lymphocytes % % Monocytes % % Eosinophils % % Basophils % % Neutrophils # (1.3-7.7) k/uL Lymphocytes # (1.0-4.8) k/uL Monocytes # (0-1.0) k/uL Eosinophils # (0-0.7) k/uL Basophils # (0-0.2) k/uL Sodium (137-145) mmol/L Potassium (3.5-5.1) mmol/L Chloride (98-107) mmol/L Carbon Dioxide (22-30) mmol/L Anion Gap mmol/L BUN (7-17) mg/dL Creatinine (0.52-1.04) mg/dL Est GFR (CKD-EPI)AfAm (>60 ml/min/1.73 sqM) Est GFR (CKD-EPI)NonAf (>60 ml/min/1.73 sqM) Glucose (74-99) mg/dL Plasma Lactic Acid Harpal (0.7-2.0) mmol/L Calcium (8.4-10.2) mg/dL Total Bilirubin (0.2-1.3) mg/dL AST (14-36) U/L ALT (4-34) U/L Alkaline Phosphatase (38-126) U/L Troponin I <0.012 (0.000-0.034) ng/mL Total Protein (6.3-8.2) g/dL Albumin (3.5-5.0) g/dL Disposition Clinical Impression: Hypertension Disposition: HOME SELF-CARE Condition: Fair Instructions (If sedation given, give patient instructions): Hypertension (ED) Is patient prescribed a controlled substance at d/c from ED?: No Referrals: Beena Doherty MD [Primary Care Provider] - 1-2 days
[2021-02-05 00:57] LABS: Basophils # (A) 0.1 k/uL (0-0.2); Basophils % (A) 1 %; Eosinophils # (A) 0.2 k/uL (0-0.7); Eosinophils % (A) 2 %; HCT 42.4 % (34.0-46.0); Lymphocytes # (A) 2.4 k/uL (1.0-4.8); Lymphocytes % (A) 24 %; MCH 31.6 pg (25.0-35.0); MCV 95.8 fL (80.0-100.0); Mean Platelet Volume 6.9; Monocytes # (A) 0.5 k/uL (0-1.0); Monocytes % (A) 6 %; Neutrophils # (A) 6.4 k/uL (1.3-7.7); Neutrophils % (A) 66 %; Platelet Count 257 k/uL (150-450); RBC 4.43 m/uL (3.80-5.40); RDW 13.9 % (11.5-15.5); WBC 9.7 k/uL (3.8-10.6)
[2021-02-05 01:09] LABS: ALT 18 U/L (4-34); AST 25 U/L (14-36); African American GFR (CKD) >90 (>60 ml/min/1.73 sqM); Albumin 4.1 g/dL (3.5-5.0); Alkaline Phosphatase 74 U/L (38-126); Anion Gap 10 mmol/L; Blood Urea Nitrogen 20 mg/dL (7-17); Calcium 9.7 mg/dL (8.4-10.2); Carbon Dioxide 22 mmol/L (22-30); Chloride 106 mmol/L (98-107); Glucose 121 mg/dL (74-99); Non-African American GFR(CKD) >90 (>60 ml/min/1.73 sqM); Potassium 3.7 mmol/L (3.5-5.1); Sodium 138 mmol/L (137-145); Total Bilirubin 0.2 mg/dL (0.2-1.3); Total Protein 6.5 g/dL (6.3-8.2)
--- NOTE | 2021-02-05 01:19 | XR ---
EXAMINATION TYPE: XR chest 1V portable DATE OF EXAM: 02/05/2021 COMPARISON: 03/13/2020 HISTORY: Chest pain TECHNIQUE: FINDINGS: Heart and mediastinum are normal. Lungs are clear. Diaphragm is normal. Bony thorax appears normal. IMPRESSION: Normal chest. No change.
[2021-02-05 02:02] VITALS: BP 151/75; PULSE 64; RESP 16
== END 2021-02-05 02:18 | disposition home or self-care (01) ==
LOC: EC 23:47
DX: I10 Essential (primary) hypertension (principal); I25.10 Atherosclerotic heart disease of native coronary artery without angina pectoris; F41.9 Anxiety disorder, unspecified; Z87.891 Personal history of nicotine dependence; Z79.82 Long term (current) use of aspirin; Z88.0 Allergy status to penicillin
CPT/HCPCS: 36415; 71045; 80053; 83605; 84484; 85025; 93005; 99284

== ENCOUNTER → 2021-03-08 | Outpatient (CLI) | payer MEDICARE ==
--- NOTE | 2021-03-08 15:26 | CT ---
EXAMINATION TYPE: CT angio neck DATE OF EXAM: 03/08/2021 COMPARISON: HISTORY: carotid stenosis CT DLP: 183.3 mGycm CONTRAST: CTA cervical carotids is performed and with IV Contrast, patient injected with 65 mL of Isovue 370. Contrast CTA of the cervical carotids was performed 3-D reconstruction imaging obtained at a separate workstation. Right carotid system: Mild plaque is seen of the right common carotid artery. There is mild plaque a lso noted at the carotid bulb. Estimated diameter reduction is 50%. ECA is patent. Right vertebra l artery appears unremarkable. Left carotid system: Mild plaque is seen of the left common carotid artery. There is mild plaque als o noted at the carotid bulb. Estimated diameter reduction is 50%. ECA is patent. Left vertebral ar teresita appears unremarkable. IMPRESSION: 1. Estimated diameter reduction Right ICA 50% 2. Estimated diameter reduction Left ICA 50% NASCET criteria was used in interpretation of this exam?
== END | disposition home or self-care (01) ==
LOC: RADCTMAIN 13:46
PROVIDERS: ATTEND Surgery
DX: I65.23 Occlusion and stenosis of bilateral carotid arteries (principal)
CPT/HCPCS: 82565; 84520; 70498; 36415; Q9967

== ENCOUNTER → 2021-05-27 | Outpatient (CLI) | payer MEDICARE ==
--- NOTE | 2021-05-28 03:07 | MR ---
EXAMINATION TYPE: MR iac wo/w con DATE OF EXAM: 05/27/2021 COMPARISON: None HISTORY: Bilateral hearing loss. CONTRAST: Standard multiplanar, multisequence MRI departmental protocol images were obtained without contrast a nd with 6 mL intravenous Gadavist gadolinium contrast. There is mild cerebral atrophy appropriate for age. There is no mass effect nor midline shift. There is no sign of intracranial hemorrhage. There is a single 5 mm focus of increased signal in the white matter right posterior frontal lobe. There is some mild patchy increased signal in the stacey bilaterally on the T2 images.. The cerebellum is intact. The internal auditory canals appear normal. There is no sign of a cerebellopontine angle mass. Contra st images show no pathologic enhancement. The sella turcica appears normal. Corpus callosum is intact IMPRESSION: There is some mild patchy increased signal in the stacey without a discrete mass. No pathologic enhance ment. This could relate to chronic small vessel ischemia. No evidence of a posterior fossa cerebellop ontine angle abnormality. Single white matter focus in the right posterior frontal lobe could be microvascular ischemia.
== END | disposition home or self-care (01) ==
LOC: RADMRIMAIN 11:43
PROVIDERS: ATTEND Otolaryngology
DX: H91.93 Unspecified hearing loss, bilateral (principal)
CPT/HCPCS: 70553; A9585

== ENCOUNTER → 2021-10-27 | Outpatient (CLI) | payer MEDICARE ==
--- NOTE | 2021-10-28 06:30 | MR ---
EXAMINATION TYPE: MR lumbar spine wo con DATE OF EXAM: 10/27/2021 COMPARISON: NONE HISTORY: Severe low back pain that radiates down both legs causing numbness, difficulty walking for p ast 6 months. TECHNIQUE: Multiplanar, multisequence imaging of the lumbar spine is performed without IV contrast. FINDINGS: There is S-shaped scoliosis. Sagittal images of the lumbar spine show vertebral body height s to appear satisfactory. Loss of normal lumbar lordosis on sagittal images. Grade 1 retrolisthesis L 3 and L4 is present. Multilevel disc desiccation with advanced disc space narrowing right L3-L4 level showing heterogeneous dictate 3 endplate changes. Moderate disc space narrowing left L4-L5 level. Mi ld to moderate disc space narrowing L2-L3 level. The conus medullaris is low in position ending mid L 2 level. No abnormal signal is seen. No suspicious clumping of lumbosacral nerve roots. Mild to mode rate multilevel anterior spurring. Note is made of prominent disc herniation T11-T12 level causing si gnificant paracentral spinal canal effacement sagittal image 9. This correlates with axial image [address] b [address]-based left paracentral disc protrusion. Axial images at T12-L1 and L1-L2 levels show mild facet arthropathy bilaterally. Axial images at L2-L3 level show mild mild broad-based posterior disc protrusion effacing anterior th ecal sac. Bilateral neural foramina are patent. Axial images at L3-L4 level show mild to moderate right greater than left facet arthropathy and ligam ent flavum hypertrophy pacing posterior lateral thecal sac. There is moderate broad disc bulge effaci ng the anterior thecal sac. There is mild to moderate left and more moderate to severe right-sided ne ural foraminal narrowing. There is encroachment on the right L3 nerve seen extraforaminal level axial image 16 and sagittal image 12. Axial images at L4-L5 level show moderate facet arthropathy bilaterally effacing posterior lateral th ecal sac. There is broad disc bulge with left paracentral disc extrusion effacing the anterolateral t hecal sac and lateral recess axial image 8 for reference and sagittal image 9. There is severe left-s ided neural foraminal narrowing. There is mild right-sided neural foraminal narrowing. Encroachment o n central left L5 nerve is present. Axial images at L5-S1 level show moderate to advanced facet arthropathy bilaterally. Spinal canal is preserved. There is mild to moderate bilateral inferior neural foraminal narrowing left greater than right. Paraspinal muscle bulk is maintained. IMPRESSION: S-shaped scoliosis. Multilevel degenerative changes as detailed above with most prominent findings noted L3-L4 and L4-L5 level. Evidence of bilateral neural encroachment is noted correlating with patient's symptoms.
== END | disposition home or self-care (01) ==
LOC: RADMRIMAIN 16:00
PROVIDERS: ATTEND Family Medicine
DX: M47.26 Other spondylosis with radiculopathy, lumbar region (principal); M41.86 Other forms of scoliosis, lumbar region
CPT/HCPCS: 72148

== ENCOUNTER → 2022-02-06 | Outpatient (CLI) | payer MEDICARE ==
--- NOTE | 2022-02-06 16:31 | CT ---
EXAMINATION TYPE: CT angio neck DATE OF EXAM: 02/06/2022 COMPARISON: 03/08/2021 HISTORY: 66-year-old female I65.29, occlusion or stenosis. Occlusion of bilateral carotids and right subclavian TECHNIQUE: Contiguous axial scanning of the neck performed without and with IV Contrast, patient inje cted with 65 mL of Isovue 370. Coronal/sagittal MIP reconstructions performed. 3-D reconstructions ge nerated on a dedicated independent workstation. CT DLP: 743 mGycm Automated exposure control for dose reduction was used. FINDINGS: Moderate emphysematous changes in the visualized upper lungs. Mild to moderate atherosclerotic plaque and calcification. Mild to moderate atherosclerotic narrowing at the origin of the right brachiocephalic artery. There is a dominant left vertebral artery. Both vertebral arteries are otherwise patent throughout th eir course. The bilateral subclavian arteries are also patent. Moderate atherosclerotic plaque and calcification at the right carotid bifurcation. This results in m ild just under 50% right ICA carotid bulb narrowing (by NASCET criteria), similar to prior exam. Mild atherosclerotic plaque in the proximal left common carotid artery. Mild arthritic change at the left carotid bifurcation without any significant stenosis. Overall appearance relatively unchanged compared to prior exam. Some prominent but nonenlarged mediastinal lymph nodes measuring up to 8 mm. Moderate spondylotic change mid to lower cervical spine. Degenerative grade 1 anterolisthesis C4-C5 a nd grade 1 retrolisthesis C5-C6. IMPRESSION: 1. MILD TO MODERATE ATHEROSCLEROTIC CHANGE OF THE RIGHT BIFURCATION WITH SIMILAR MILD, JUST UNDER 50% PROXIMAL RIGHT ICA STENOSIS. 2. MILD ATHEROSCLEROTIC CHANGE AT THE LEFT CAROTID BIFURCATION WITH SIMILAR, NO SIGNIFICANT LEFT ICA STENOSIS. 3. DOMINANT LEFT VERTEBRAL ARTERY. PATENT BILATERAL VERTEBRAL ARTERIES. PATENT BILATERAL SUBCLAVIAN A RTERIES. 4. MILD TO MODERATE ATHEROSCLEROTIC NARROWING AT THE ORIGIN OF THE BRACHIOCEPHALIC ARTERY. 5. COPD WITH MODERATE EMPHYSEMA IN THE VISUALIZED UPPER LUNGS.
== END | disposition home or self-care (01) ==
LOC: RADCTMAIN 13:34
PROVIDERS: ATTEND Surgery
DX: I65.22 Occlusion and stenosis of left carotid artery (principal); I25.10 Atherosclerotic heart disease of native coronary artery without angina pectoris; J44.9 Chronic obstructive pulmonary disease, unspecified
CPT/HCPCS: 82565; 84520; 70498; 36415; Q9967

== ENCOUNTER → 2022-05-29 | Outpatient (CLI) | payer MEDICARE ==
--- NOTE | 2022-05-29 13:38 | XR ---
EXAMINATION TYPE: XR chest 2V DATE OF EXAM: 05/29/2022 COMPARISON: 02/05/2021 TECHNIQUE: PA and lateral views submitted. HISTORY: Pre-op FINDINGS: The lungs are clear and there is no pneumothorax, pleural effusion, or focal pneumonia. Hyperinflat ion. Heart size normal. Atherosclerotic change aorta. Degenerative changes of the spine. No overt lester lure. IMPRESSION: 1. No acute process. Correlate for COPD.
== END ==
LOC: LABWHC1 11:49
PROVIDERS: ATTEND Neurological Surgery
DX: Z01.818 Encounter for other preprocedural examination (principal); I77.1 Stricture of artery
CPT/HCPCS: 36415; 71046; 93005

== ENCOUNTER → 2022-06-09 | Outpatient (CLI) | payer MEDICARE ==
--- NOTE | 2022-06-09 15:52 | MR ---
EXAMINATION TYPE: MR lumbar spine wo con DATE OF EXAM: 06/09/2022 COMPARISON: 10/27/2021 HISTORY: 66-year-old female M48.062, lumbar region spinal stenosis. Low back pain that radiates down both legs TECHNIQUE: Multiplanar, multisequence images of the lumbar spine were acquired without IV contrast. FINDINGS: Focal levoconvex curvature centered at L3-L4. Right lateral subluxation L2-L3. Mixed Modic type I stephany matous and sclerotic type III endplate change towards the right side of concavity at L3-L4. Possible fairly heavy plaque burden within the mid abdominal aorta. Aortic caliber of 2.0 cm but poss ible luminal narrowing down to [address] evaluation. 8 mm probable cyst medial left [place]. Moderate degenerative disc disease with desiccated, narrowed, and bulging disks throughout. Severe at L3-L4. Conus medullaris is at the L2 level. Vertebral body heights are preserved. Severe hypertrophic facet arthropathy throughout. Degenerative grade 1 retrolisthesis L3-L4. There are large disc bulges throughout. Eccentric towards the left at L3-L4 and L4-L5. There is also disc bulge higher up at T11-T12 contributing to a moderate focal spinal canal stenosis. Overall mass effect and slight indentation onto the cord appears to have improved from prior. Modera te left neuroforaminal stenosis at this level. At T12-L1 and L1-L2, no significant canal or foraminal stenosis. At L2-L3, similar moderate spinal canal stenosis. There is new central extrusion with inferior migrat ion of disc material, sagittal image 8 and axial image 16. This abuts a couple of the ventral cauda e quina nerve roots. Mild right neuroforaminal stenosis. At L3-L4, large diffuse disc bulge redemonstrated. Focal moderate spinal canal stenosis is similar. T here is moderate to severe right and moderate left neuroforaminal stenosis. At L4-L5, diffuse disc bulge eccentric towards the left along with ligamentum flavum thickening. Ther e is focal moderate to severe spinal canal stenosis. Moderate to severe left and mild right neurofora andriy stenosis. At L5-S1, ligamentum flavum thickening and hypertrophic facet arthropathy left greater than right. Ch anges resulting in moderate left and mild right neuroforaminal stenosis. IMPRESSION: 1. Relatively similar exam compared to 10/27/2021 with a degenerated focal levoconvex scoliosis center ed at L3-L4. Mixed Modic type I and type III endplate change towards the right at this level. 2. Moderate degenerative disc disease throughout. Severe hypertrophic facet arthropathy throughout. D egenerative grade 1 retrolisthesis L3-L4. Ligamentum flavum thickening mid to lower lumbar spine. 3. Focal moderate to severe spinal canal stenosis at L4-L5 with moderate to severe left and mild righ t neuroforaminal stenosis. 4. At L3-L4, similar focal moderate spinal canal stenosis. There is moderate to severe right and mode rate left neuroforaminal stenosis. 5. At L2-L3, similar moderate spinal canal stenosis though with a new central disc extrusion with inf erior migration of disc material. Disc material here abuts a couple of the ventral cauda equina nerve roots. 6. A posterior disc bulge at T11-T12 is redemonstrated. It contributes to moderate spinal canal steno sis though the overall mass effect and slight indentation on the ventral cord appears to have improve d from prior. Moderate left neuroforaminal stenosis. 7. Possible heavy plaque burden within the mid abdominal aorta. Aortic caliber of 2.0 cm but possible luminal narrowing down to 7 mm. Consider further contrast enhanced CT evaluation.
== END | disposition home or self-care (01) ==
LOC: RADMRIMAIN 13:50
PROVIDERS: ATTEND Neurological Surgery
DX: M48.062 Spinal stenosis, lumbar region with neurogenic claudication (principal); M51.16 Intervertebral disc disorders with radiculopathy, lumbar region; M99.73 Connective tissue and disc stenosis of intervertebral foramina of lumbar region
CPT/HCPCS: 72148

== ENCOUNTER → 2022-06-16 | Outpatient (CLI) | payer MEDICARE ==
[2022-06-16 11:45] LABS: INR 0.9 (<1.2); Partial Thromboplastin Time 23.9 sec (22.0-30.0); Prothrombin Time 9.7 sec (9.0-12.0)
[2022-06-16 14:35] LABS: Basophils # (A) 0.04 X 10*3/uL (0.00-0.10); Basophils % (A) 0.4 %; Eosinophils # (A) 0.12 X 10*3/uL (0.04-0.35); Eosinophils % (A) 1.3 %; HCT 42.8 % (37.2-46.3); Immature Grans, Automated 0.3 %; Lymphocytes # (A) 2.53 X 10*3/uL (0.90-5.00); Lymphocytes % (A) 26.9 %; MCH 31.9 pg (27.0-32.0); MCHC 32.7 g/dL (32.0-37.0); MCV 97.5 fL (80.0-97.0); Mean Platelet Volume 9.9 fL (9.5-12.2); Monocytes # (A) 0.56 X 10*3/uL (0.20-1.00); NRBC Per 100 WBC 0 /100 WBCS (0.0-0.0); Neutrophils # (A) 6.13 X 10*3/uL (1.80-7.70); Neutrophils % (A) 65.1 %; Platelet Count 258 X 10*3/uL (140-440); RBC 4.39 X 10*6/uL (4.10-5.20); RDW 12.6 % (11.5-14.5); WBC 9.41 X 10*3/uL (4.50-10.00)
[2022-06-16 14:38] LABS: African American GFR (CKD) 64.4 (60.0-200.0); Albumin 4.4 g/dL (3.8-4.9); Albumin/Globulin Ratio 2.09 (1.60-3.17); Anion Gap 11.6 mmol/L (10.00-18.00); BUN/Creat Ratio 28.56 Ratio (12.00-20.00); Blood Urea Nitrogen 29.7 mg/dL (9.0-27.0); Calcium 9.8 mg/dL (8.7-10.3); Carbon Dioxide 26.4 mmol/L (20.0-27.5); Globulin 2.1 g/dL (1.6-3.3); Non-African American GFR(CKD) 55.6 (60.0-200.0); Potassium 4.6 mmol/L (3.5-5.5); Total Bilirubin 0.3 mg/dL (0.30-1.20); Total Protein 6.5 g/dL (6.2-8.2)
[2022-06-16 18:26] LABS: Appearance,Urine Clear (Clear); Bilirubin,Urine Negative (Negative); Blood,Urine Negative (Negative); Color,Urine Dark Yellow (Yellow); Ketones,Urine Trace mg/dL (Negative); Nitrite,Urine Negative (Negative); Specific Gravity,Urine 1.025 (1.001-1.030)
[2022-06-16 18:32] LABS: Bacteria,Urine None Seen /HPF (None Seen)
== END | disposition home or self-care (01) ==
LOC: LABWHC1 09:32
PROVIDERS: ATTEND Neurological Surgery
DX: Z01.812 Encounter for preprocedural laboratory examination (principal); M48.00 Spinal stenosis, site unspecified
CPT/HCPCS: 36415; 80053; 81001; 85025; 85610; 85730; 87070; 87086

== ENCOUNTER → 2022-06-20 | Outpatient (CLI) | payer MEDICARE | END | disposition home or self-care (01) | LOC: LABWHC1 11:37 | PROVIDERS: ATTEND Neurological Surgery | DX: M48.00 Spinal stenosis, site unspecified (principal) | CPT/HCPCS: 86850; 86900; 86901 ==

== ENCOUNTER → 2022-06-22 | Outpatient (CLI) | payer MEDICARE ==
[2022-06-22 15:41] LABS: Chol/HDL Ratio 3.33 Ratio; LDL Cholesterol,Calculated 73.5 mg/dL (0.0-131.0); VLDL Calculation 18.94 mg/dL (5.00-40.00)
== END | disposition home or self-care (01) ==
LOC: LABWHC1 08:17
PROVIDERS: ATTEND Internal Medicine Interventional Cardiology
DX: E78.2 Mixed hyperlipidemia (principal)
CPT/HCPCS: 36415; 80061

== ENCOUNTER → 2023-01-15 | Outpatient (CLI) | payer MEDICARE ==
[2023-01-15 16:36] LABS: ALT 15 U/L (8-44); AST 19 U/L (13-35); Albumin 4.5 d/dL (3.8-4.9); Albumin/Globulin Ratio 1.96 Ratio (1.60-3.17); Alkaline Phosphatase 81 U/L (41-126); BUN/Creat Ratio 28.11 Ratio (12.00-20.00); Blood Urea Nitrogen 25.3 mg/dL (9.0-27.0); Calcium 9.7 mg/dL (8.7-10.3); Carbon Dioxide 24.7 mmol/L (21.6-31.8); Chloride 106 mmol/L (96-109); Chol/HDL Ratio 3.18 Ratio; Globulin 2.3 d/dL (1.6-3.3); Glucose 98 mg/dL (70-110); LDL Cholesterol,Calculated 76.9 mg/dL (0.0-131.0); Potassium 4.9 mmol/L (3.5-5.5); Sodium 142 mmol/L (135-145); Total Bilirubin 0.4 mg/dL (0.3-1.2); Total Protein 6.8 d/dL (6.2-8.2); VLDL Calculation 18.42 mg/dL (5.00-40.00)
[2023-01-15 18:13] LABS: Basophils # (A) 0.05 X 10*3/uL (0.00-0.10); Basophils % (A) 0.6 %; Eosinophils # (A) 0.13 X 10*3/uL (0.04-0.35); Eosinophils % (A) 1.5 %; HCT 43.6 % (37.2-46.3); Lymphocytes # (A) 2.44 X 10*3/uL (0.90-5.00); Lymphocytes % (A) 27.5 %; MCH 31.7 pg (27.0-32.0); MCHC 32.1 d/dL (32.0-37.0); MCV 98.6 FL (80.0-97.0); Mean Platelet Volume 9.7 FL (9.5-12.2); Monocytes # (A) 0.65 X 10*3/uL (0.20-1.00); Monocytes % (A) 7.3 %; NRBC Per 100 WBC 0 X 10*3/uL (0.00-0.01); Neutrophils # (A) 5.58 X 10*3/uL (1.80-7.70); Neutrophils % (A) 62.8 %; Platelet Count 302 X 10*3/uL (140-440); RBC 4.42 X 10*6/uL (4.10-5.20); RDW 13.2 % (11.5-14.5); WBC 8.88 X 10*3/uL (4.50-10.00)
== END | disposition home or self-care (01) ==
LOC: LABWHC1 08:46
PROVIDERS: ATTEND Nurse Practitioner Family
DX: Z13.21 Encounter for screening for nutritional disorder (principal); Z13.228 Encounter for screening for other metabolic disorders; I10 Essential (primary) hypertension; E78.5 Hyperlipidemia, unspecified
CPT/HCPCS: 36415; 80053; 80061; 82306; 83036; 84443; 85025

== ENCOUNTER → 2023-01-23 | Outpatient (CLI) | payer MEDICARE ==
--- NOTE | 2023-01-31 13:48 | MM ---
Reason for Exam: Screening (asymptomatic). Last mammogram was performed 6 year(s) and 8 month(s) ago. Patient History: Menarche at age 11. First Full-Term at age 22. Postmenopausal. 07/16/1999, Incisional Biopsy on the Left side. Risk Values: Roula 5 year model risk: 1.8%. NCI Lifetime model risk: 5.9%. Prior Study Comparison: 04/19/2012 Bilateral Screening Mammogram, [facility]. 06/06/2016 Bilateral Screening Mammogram, [facility]. Tissue Density: There are scattered fibroglandular densities. Findings: Analyzed By CAD. Appears symmetrical and stable. Chronic nodularity is within the medial right breast. Vascular calcification is present bilaterally There is a subtle distortion within the medial aspect left mid breast on the craniocaudal projection 4 cm the nipple. Compression view is recommended for additional evaluation. Right breast: No suspicious groups of microcalcifications, spiculated or lobular masses, architectural distortion or other secondary signs of malignancy are mammographically apparent. Overall Assessment: Incomplete: need additional imaging evaluation, BI-RAD 0 Management: Diagnostic Mammogram of the left breast. A negative mammogram report should not preclude additional follow up of suspicious palpable abnormalities. Patient should continue monthly self breast exam. A clinical breast exam by your physician is recommended on an annual basis and results should be correlated with mammographic findings. Electronically signed and approved by: Loi Smith D.O. Radiologis
== END | disposition home or self-care (01) ==
LOC: RADMAMWWP 13:18
PROVIDERS: ATTEND Family Medicine
DX: Z12.31 Encounter for screening mammogram for malignant neoplasm of breast (principal); Z78.0 Asymptomatic menopausal state
CPT/HCPCS: 77063; 77067

== ENCOUNTER → 2023-03-07 | Outpatient (CLI) | payer MEDICARE ==
--- NOTE | 2023-03-07 10:17 | MM ---
Reason for Exam: Additional evaluation requested from abnormal screening. Last screening mammogram was performed 1 month(s) ago. Patient History: Menarche at age 11. First Full-Term at age 22. Postmenopausal. Patient has history of breast feeding. 07/16/1999, Incisional Biopsy on the Left side. Risk Values: Roula 5 year model risk: 1.8%. NCI Lifetime model risk: 5.9%. Prior Study Comparison: 04/19/2012 Bilateral Screening Mammogram, [facility]. 06/06/2016 Bilateral Screening Mammogram, [facility]. 01/23/2023 Bilateral MG 3D screening mammo w/cad, [facility]. Tissue Density: Left: There are scattered fibroglandular densities. Findings: Analyzed By CAD. Pattern appears stable. Under compression no persistent distortion is evident. No suspicious groups of microcalcifications, spiculated or lobular masses, architectural distortion or other secondary signs of malignancy are mammographically apparent. Overall Assessment: Probably benign, BI-RAD 3 Management: Diagnostic Mammogram of the left breast in 6 months. A negative mammogram report should not preclude additional follow up of suspicious palpable abnormalities. Patient should continue monthly self breast exam. A clinical breast exam by your physician is recommended on an annual basis and results should be correlated with mammographic findings. Electronically signed and approved by: Loi Smith D.O. Radiologis
== END | disposition home or self-care (01) ==
LOC: RADMAMWWP 09:24
PROVIDERS: ATTEND Family Medicine
DX: R92.8 Other abnormal and inconclusive findings on diagnostic imaging of breast (principal); Z78.0 Asymptomatic menopausal state
CPT/HCPCS: 77065; G0279; 77061

== ENCOUNTER → 2023-09-10 | Outpatient (CLI) | payer MEDICARE ==
--- NOTE | 2023-09-10 13:24 | MM ---
Reason for Exam: Follow-up at short interval from prior study. Last screening mammogram was performed 7 month(s) ago. Patient History: Menarche at age 11. First Full-Term at age 22. Postmenopausal. Patient has history of breast feeding. 07/16/1999, Incisional Biopsy on the Left side. Risk Values: Roula 5 year model risk: 1.8%. NCI Lifetime model risk: 5.9%. Prior Study Comparison: 04/19/2012 Bilateral Screening Mammogram, [facility]. 06/06/2016 Bilateral Screening Mammogram, [facility]. 01/23/2023 Bilateral MG 3D screening mammo w/cad, [facility]. 03/07/2023 Left MG 3D work up w/cad LT, [facility]. Tissue Density: Left: There are scattered fibroglandular densities. Findings: Analyzed By CAD. The pattern is symmetrical. Vascular calcification is present. No suspicious calcifications identified right Previous focal asymmetric density was not evident on the current examination. No suspicious groups of microcalcifications, spiculated or lobular masses, architectural distortion or other secondary signs of malignancy are mammographically apparent.The pattern is symmetrical. Vascular calcification is present. No suspicious calcifications identified. Previous focal asymmetric density was not evident on the current examination. No suspicious groups of microcalcifications, spiculated or lobular masses, architectural distortion or other secondary signs of malignancy are mammographically apparent. Overall Assessment: Benign, BI-RAD 2 Management: Screening Mammogram of both breasts in 5 months. A negative mammogram report should not preclude additional follow up of suspicious palpable abnormalities. Patient should continue monthly self breast exam. A clinical breast exam by your physician is recommended on an annual basis and results should be correlated with mammographic findings. Electronically signed and approved by: Loi Smith D.O. Radiologis
== END | disposition home or self-care (01) ==
LOC: RADMAMWWP 12:42
PROVIDERS: ATTEND Family Medicine
DX: R92.322 Mammographic fibroglandular density, left breast (principal); R92.342 Mammographic extreme density, left breast; R92.1 Mammographic calcification found on diagnostic imaging of breast; Z78.0 Asymptomatic menopausal state
CPT/HCPCS: 77065; G0279; 77061

== ENCOUNTER → 2024-01-23 | Outpatient (CLI) | payer MEDICARE ==
--- NOTE | 2024-01-23 15:43 | CTL ---
EXAMINATION TYPE: CT Low Dose Lung DATE OF EXAM ORDERED: 01/23/2024 HISTORY: 68-year-old female Z12.2 LUNG CANCER SCR Z87.891 HX OF NICOTINE DEPEN. Lung cancer screening . Former smoker with 30 pack-year history CT DLP: 75.[address] CTDI: 2.2 mGy Automated exposure control for dose reduction was used. SCREENING VISIT: Baseline COMPARISON: 02/26/2020 TECHNIQUE: Low dose computed tomography scan was performed through the chest at 1 mm thick sections a nd reconstructed images in multiple planes at 1 mm and [address] DIAGNOSTIC QUALITY: Satisfactory FINDINGS: Heart normal size without pericardial effusion. Mild to moderate atherosclerotic arch calcifications within the chart vessel branching anatomy. Borderline size 9 mm lower right paratracheal lymph node remains unchanged. No thoracic lymphadenopat hy by CT size criteria. Moderate diffuse bronchial wall thickening. Moderate emphysematous change. Some scattered groundglass may reflect mosaic attenuation of small airways disease. * 5 mm right basilar pulmonary nodule, axial images 256 is unchanged. * 4 mm left upper lobe pulmonary nodule, axial image 126 is unchanged. * Subpleural pulmonary nodule right middle lobe, axial image 204 measuring 7 mm is unchanged. * 4 mm nodularity along the right major fissure, axial image 169 is unchanged. * 5 mm left mid lung pulmonary nodule, axial image 183 is new. Visualized upper abdomen shows a left hepatic cyst measuring 1.4 cm and similar low density nodularit y left adrenal gland measuring 1.1 cm. Bones: Moderate degenerative disc disease mid to lower thoracic spine. IMPRESSION: 1. Lung RADS 3, probably benign. A new 5 mm left midlung pulmonary nodule, axial image 23. 6 month fo llow-up to reassess. Other scattered pulmonary nodules measuring up to 7 mm are unchanged. 2. COPD with moderate emphysema. CT LUNG RAD AND CT CHEST RECOMMENDATION: Lung-Rad 3 Probably Benign: 6 month follow-up LDCT. S Modifier (other clinically significant findings): None
== END | disposition home or self-care (01) ==
LOC: RADCTMAIN 12:03
PROVIDERS: ATTEND Family Medicine
DX: Z12.2 Encounter for screening for malignant neoplasm of respiratory organs (principal); J44.9 Chronic obstructive pulmonary disease, unspecified; J43.9 Emphysema, unspecified; Z87.891 Personal history of nicotine dependence
CPT/HCPCS: 71271

== ENCOUNTER → 2024-07-29 | Outpatient (CLI) | payer MEDICARE ==
--- NOTE | 2024-07-29 14:44 | CTL ---
EXAMINATION TYPE: CT Low Dose Lung DATE OF EXAM ORDERED: 07/29/2024 COMPARISON: 01/23/2024 CLINICAL INDICATION: Female, 68 years old with history of R91.8; PHH, personal hx of nicotine depende nce 1ppd X 30 years not current smoker, Lung cancer screening, History of Smoking/tobacco use. TECHNIQUE: Low dose computed tomography scan was performed through the chest at 1 mm thick sections a nd reconstructed images in multiple planes at 1 mm and [address] DLP: 70.[address] CTDI: 2.0 mGy Automated exposure control for dose reduction was used. CT DIAGNOSTIC QUALITY: Satisfactory FINDINGS: Findings: There are marked emphysematous changes. There is a new 3.2 mm groundglass nodule in the right lower lobe. There is a new 6 mm groundglass nod ule in the left upper lobe. The nodules in the right lung base adjacent to diaphragm and in the left upper lobe are unchanged. There is no lung consolidation or abnormal interstitial density. There is no pleural effusion or pneumothorax. The great vessels and heart are normal in size. There is no mediastinal, hilar or axillary adenopathy. Limited scanning through the upper abdomen reveals no gross abnormality. There are no focal osseous lesions. IMPRESSION: 1. Lung RADS category 3, likely benign. Follow-up CT thorax in 6 months is recommended to confirm sta bility for the groundglass nodules in the right lower lobe and in the left upper lobe. 2. No acute cardiopulmonary disease. 3. Marked emphysematous changes. [facility], , 07/29/2024 2:41 PM
== END | disposition home or self-care (01) ==
LOC: RADCTMAIN 14:00
PROVIDERS: ATTEND Family Medicine
DX: Z12.2 Encounter for screening for malignant neoplasm of respiratory organs (principal); R91.8 Other nonspecific abnormal finding of lung field; Z87.891 Personal history of nicotine dependence; J43.9 Emphysema, unspecified
CPT/HCPCS: 71271